=== PATIENT | female | born 1950 | race Caucasian/White ===

== ENCOUNTER → 2020-03-16 11:13 | Outpatient (BNVA) | payer MEDICARE, MEDICAID, SELFPAY | PROVIDERS: PCP Internal Medicine; Referring Provider Internal Medicine; Visit Provider Student in an Organized Health Care Education/Training Program | DX: M35.9 Systemic involvement of connective tissue, unspecified (principal); I27.20 Pulmonary hypertension, unspecified | CPT/HCPCS: 99214 ==

== ENCOUNTER 2020-03-27 09:24 | Outpatient (REF) | payer MEDICARE, MEDICAID, SELFPAY ==
[2020-03-27 10:13] LABS: MANUAL DIFF FLAG NO
[2020-03-27 10:34] LABS: Basophils Percent Auto 0.4 % (0-2); Eosinophils Absolute Auto 0.1 X10*3/uL (0.0-0.4); Hematocrit 42.3 % (37-47); Imm Gran Abs Auto 0.02 X10*3/uL (0.00-0.03); Imm Gran Pct Auto 0.4 % (0.0-0.4); Lymphocytes Absolute Auto 0.9 X10*3/uL (1.2-4.9); Lymphocytes Percent Auto 18.2 % (20-40); Mean Corpuscular HGB Conc 33.1 g/dl (31.0-35.0); Mean Corpuscular Hemoglobin 30.1 pg (27.0-33.0); Mean Platelet Volume 9.8 fL (9.4-12.3); Monocytes Absolute Auto 0.4 X10*3/uL (0.1-1.2); Monocytes Percent Auto 7.6 % (2-11); Neutrophils Absolute Auto 3.7 X10*3/uL (2.0-8.3); Neutrophils Percent Auto 71.4 % (45-73); Platelet Count 201 X10*3/uL (160-400); Red Blood Count 4.65 X10*6/uL (4.20-5.50); Red Cell Distribution Width 12.6 % (11.0-16.0); White Blood Count 5.1 X10*3/uL (4.8-10.8)
[2020-03-27 10:42] LABS: Appearance Urine HAZY; Color Urine YELLOW; Glucose Urine UA NEG (NEG); Leukocyte Esterase Urine 1+ (NEG); Nitrite Urine NEG (NEG); PH 6.5 (5.0-8.0); Specific Gravity - Urine >= 1.030 (1.005-1.025); Urine Blood 2+ (NEG); Urine Ketones 5 MG/DL (NEG); Urine Protein TRACE MG/DL (NEG-TRACE)
[2020-03-27 11:02] LABS: Bacteria Urine 1+ /LPF; Squamous Epithelial Cell Urine 1+ /LPF
[2020-03-27 11:17] LABS: Alanine Aminotransferase 22 U/L (0-31); Albumin Level 4.4 g/dL (3.5-5.0); Alkaline Phosphatase 68 U/L (39-117); Anion Gap 13 (12-20); Aspartate Amino Transferase 33 U/L (5-31); Bilirubin Total 0.9 mg/dL (0.0-1.0); Blood Urea Nitrogen 13 mg/dL (9-16); C Reactive Protein 0.58 mg/dL (< or = 0.50); Carbon Dioxide 29 mmol/L (22-29); Chloride 103 mmol/L (96-108); Estimated Glomerular Filt Rate 45; Glucose Random 105 mg/dL (60-115); Potassium 4.4 mmol/l (3.3-5.1); Sodium 141 mmol/L (135-145); Total Protein 7.4 g/dL (6.5-8.0)
[2020-03-27 11:32] LABS: Erythrocyte Sedimentation Rate 12 MM/HR (0-20)
[2020-03-29 11:41] LABS: Anti DNA DS Antibody <1 IU/mL
[2020-03-29 14:06] LABS: Complement C3 80 mg/dL (83-193)
== END 2020-03-27 09:25 | disposition home or self-care (01) ==
LOC: HO.LAB 09:24
PROVIDERS: Visit Provider Student in an Organized Health Care Education/Training Program
DX: M35.9 Systemic involvement of connective tissue, unspecified (principal)
CPT/HCPCS: 36415; 80053; 81001; 85025; 85652; 86140; 86160; 86225

== ENCOUNTER 2020-05-05 15:47 | Outpatient (REF) | payer MEDICARE, MEDICAID, SELFPAY | END 2020-05-05 15:48 | disposition home or self-care (01) | LOC: HO.LAB 15:47 | PROVIDERS: Visit Provider Internal Medicine | DX: Z20.828 Contact with and (suspected) exposure to other viral communicable diseases (principal) | CPT/HCPCS: C9803; U0003 ==

== ENCOUNTER 2020-08-27 15:17 | Outpatient (REF) | payer MEDICARE, MEDICAID, SELFPAY ==
[2020-08-27 16:20] LABS: Basophils Percent Auto 0.2 % (0-2); Eosinophils Absolute Auto 0.1 X10*3/uL (0.0-0.4); Eosinophils Percent Auto 1.9 % (0-4); Hematocrit 39.8 % (37-47); Imm Gran Abs Auto 0.01 X10*3/uL (0.00-0.03); Imm Gran Pct Auto 0.2 % (0.0-0.4); Lymphocytes Percent Auto 19.5 % (20-40); MANUAL DIFF FLAG NO; Mean Corpuscular HGB Conc 32.7 g/dl (31.0-35.0); Mean Corpuscular Volume 91.7 fL (80-98); Mean Platelet Volume 9.2 fL (9.4-12.3); Monocytes Absolute Auto 0.5 X10*3/uL (0.1-1.2); Monocytes Percent Auto 10.1 % (2-11); Neutrophils Absolute Auto 3.6 X10*3/uL (2.0-8.3); Neutrophils Percent Auto 68.1 % (45-73); Platelet Count 177 X10*3/uL (160-400); Red Blood Count 4.34 X10*6/uL (4.20-5.50); Red Cell Distribution Width 12.9 % (11.0-16.0); White Blood Count 5.2 X10*3/uL (4.8-10.8)
[2020-08-27 16:44] LABS: Glucose Urine UA NEG (NEG); Leukocyte Esterase Urine 2+ (NEG); Nitrite Urine NEG (NEG); Specific Gravity - Urine >= 1.030 (1.005-1.025); Urine Blood 2+ (NEG); Urine Ketones NEG (NEG); Urine Protein NEG (NEG-TRACE)
[2020-08-27 16:47] LABS: Appearance Urine HAZY; Color Urine YELLOW; Creatinine Urine 136.68 mg/dL; Protein/Creatinine Ratio, Ur 0.08 (<0.2); Total Protein Urine Random 11 mg/dL (<12)
[2020-08-27 16:48] LABS: Alanine Aminotransferase 25 U/L (0-31); Albumin Level 4.3 g/dL (3.5-5.0); Alkaline Phosphatase 65 U/L (39-117); Anion Gap 12 (12-20); Aspartate Amino Transferase 30 U/L (5-31); Bilirubin Total 0.7 mg/dL (0.0-1.0); Blood Urea Nitrogen 16 mg/dL (9-16); Carbon Dioxide 29 mmol/L (22-29); Chloride 105 mmol/L (96-108); Estimated Glomerular Filt Rate 46; Glucose Random 99 mg/dL (60-115); Potassium 4.6 mmol/L (3.3-5.1); Sodium 141 mmol/L (135-145); Total Protein 7.3 g/dL (6.5-8.0)
[2020-08-27 17:59] LABS: Erythrocyte Sedimentation Rate 11 MM/HR (0-20)
[2020-08-27 18:03] LABS: Bacteria Urine TRACE /LPF; Squamous Epithelial Cell Urine 1+ /LPF
[2020-08-27 18:04] LABS: Renal Epithelial Cells Urine 3+ /LPF
[2020-08-28 13:06] LABS: Anti DNA DS Antibody <1 IU/mL
[2020-08-30 12:21] LABS: Complement C3 72 mg/dL (83-193)
== END 2020-08-27 15:18 | disposition home or self-care (01) ==
LOC: HO.LAB 15:17
PROVIDERS: PCP Internal Medicine; Referring Provider Internal Medicine; Visit Provider Student in an Organized Health Care Education/Training Program
DX: M35.9 Systemic involvement of connective tissue, unspecified (principal); Z79.899 Other long term (current) drug therapy
CPT/HCPCS: 36415; 80053; 81001; 84156; 85025; 85652; 86140; 86160; 86225; 99212

== ENCOUNTER 2020-10-14 13:31 | Outpatient (REF) | payer MEDICARE, MEDICAID, SELFPAY ==
[2020-10-14 14:16] LABS: Glucose Urine UA NEG (NEG); Leukocyte Esterase Urine 1+ (NEG); Nitrite Urine NEG (NEG); Specific Gravity - Urine >= 1.030 (1.005-1.025); UACC Culture Trigger YES; Urine Blood 2+ (NEG); Urine Ketones 5 MG/DL (NEG); Urine Protein TRACE MG/DL (NEG-TRACE)
[2020-10-14 14:19] LABS: Appearance Urine HAZY; Color Urine YELLOW
[2020-10-14 14:23] LABS: Glucose Urine UA NEG (NEG); Leukocyte Esterase Urine 1+ (NEG); Nitrite Urine NEG (NEG); Specific Gravity - Urine >= 1.030 (1.005-1.025); Urine Blood 2+ (NEG); Urine Ketones 5 MG/DL (NEG); Urine Protein TRACE MG/DL (NEG-TRACE)
[2020-10-14 14:24] LABS: Appearance Urine HAZY; Color Urine YELLOW
[2020-10-14 14:37] LABS: Squamous Epithelial Cell Urine 1+ /LPF
[2020-10-14 14:38] LABS: Renal Epithelial Cells Urine 1+ /LPF
[2020-10-14 14:39] LABS: Renal Epithelial Cells Urine 1+ /LPF; Squamous Epithelial Cell Urine 1+ /LPF
== END 2020-10-14 13:32 | disposition home or self-care (01) ==
LOC: HO.LAB 13:31
PROVIDERS: Student in an Organized Health Care Education/Training Program; PCP Internal Medicine; Visit Provider Internal Medicine
DX: R30.0 Dysuria (principal); M35.9 Systemic involvement of connective tissue, unspecified
CPT/HCPCS: 81001; 81003; 87086

== ENCOUNTER 2020-11-24 09:33 | Outpatient (REF) | payer MEDICARE, MEDICAID, SELFPAY ==
--- NOTE | ~2020-11-24 | MM_ITS ---
EXAMINATION: MM SCREENING DIGITAL BREAST TOMOSYNTHESIS, BILATERAL CLINICAL INFORMATION: Screening. Asymptomatic. The lifetime risk of breast cancer based on the Tyrer-Cuzick Model is 1.6%. COMPARISON: Mammography: March 17, 2019 and studies dating back to April 06, 2012 TECHNIQUE: Digital breast tomosynthesis is performed in both the craniocaudal and mediolateral oblique views along with computer-aided detection (CAD). Synthesized 2D images are generated from the tomosynthesis. FINDINGS: There are scattered areas of fibroglandular density (ACR BI-RADS breast composition Category b). There are no significant masses, abnormal calcifications, or other abnormalities. MM/MM tomosynthesis screening BI IMPRESSION: There are no significant changes from prior study. ASSESSMENT: BI-RADS 1: Negative RECOMMENDATION: Routine annual mammography screening. This patient's information was entered into a reminder system with a target due date for their next mammogram.
== END 2020-11-24 09:34 | disposition home or self-care (01) ==
LOC: HO.MAMMO 09:33
PROVIDERS: Visit Provider Internal Medicine
DX: Z12.31 Encounter for screening mammogram for malignant neoplasm of breast (principal)
CPT/HCPCS: 77063; 77067

== ENCOUNTER 2021-10-07 08:36 | Outpatient (REF) | payer MEDICARE, SELFPAY ==
[2021-10-07 09:00] LABS: MANUAL DIFF FLAG NO
[2021-10-07 09:08] LABS: Basophils Percent Auto 0.6 % (0-2); Eosinophils Absolute Auto 0.2 X10*3/uL (0.0-0.4); Eosinophils Percent Auto 3.5 % (0-4); Hematocrit 39.5 % (37.0-47.0); Imm Gran Abs Auto 0.01 X10*3/uL (0.00-0.03); Imm Gran Pct Auto 0.2 % (0.0-0.4); Lymphocytes Absolute Auto 0.9 X10*3/uL (1.2-4.9); Lymphocytes Percent Auto 18.7 % (20-40); Mean Corpuscular HGB Conc 32.9 g/dl (31.0-35.0); Mean Platelet Volume 9.1 fL (9.4-12.3); Monocytes Absolute Auto 0.5 X10*3/uL (0.1-1.2); Monocytes Percent Auto 10.6 % (2-11); Neutrophils Absolute Auto 3.3 x10*3/uL (2.0-8.3); Neutrophils Percent Auto 66.4 % (45-73); Platelet Count 182 X10*3/uL (160-400); Red Blood Count 4.49 X10*6/uL (4.20-5.50); Red Cell Distribution Width 13.1 % (11.0-16.0); White Blood Count 4.9 X10*3/uL (4.8-10.8)
[2021-10-07 09:40] LABS: Alanine Aminotransferase 20 U/L (0-31); Alkaline Phosphatase 58 U/L (39-117); Anion Gap 12 (12-20); Aspartate Amino Transferase 28 U/L (5-31); Bilirubin Total 0.8 mg/dL (0.0-1.0); Blood Urea Nitrogen 15 mg/dL (9-16); Calcium 9.5 mg/dL (8.4-10.2); Carbon Dioxide 27 mmol/L (22-29); Chloride 107 mmol/L (96-108); Cholesterol 127 mg/dL; Estimated Glomerular Filt Rate 50; Glucose Fasting 96 mg/dL (60-99); HDL Cholesterol 63 mg/dL; LDL Cholesterol Calculated 54 mg/dl; Potassium 4.5 mmol/L (3.3-5.1); Sodium 141 mmol/L (135-145); Total Protein 6.9 g/dL (6.5-8.0); Triglycerides 50 mg/dL
[2021-10-07 10:02] LABS: TSH reflex Free T4 (Prenatal) 2.31 uIU/mL (0.32-4.0); Thyroid Stimulating Hormone 2.31 uIU/mL (0.32-4.0)
[2021-10-10 19:27] LABS: Thyroglobulin Antibodies <1 IU/mL (< or = 1); Thyroid Peroxidase Antibodies <1 IU/mL (<9)
== END 2021-10-07 08:37 | disposition home or self-care (01) ==
LOC: HO.LAB 08:36
PROVIDERS: PCP Internal Medicine; Visit Provider Internal Medicine
DX: D64.9 Anemia, unspecified (principal); K21.9 Gastro-esophageal reflux disease without esophagitis; E78.5 Hyperlipidemia, unspecified; E03.9 Hypothyroidism, unspecified
CPT/HCPCS: 36415; 80053; 80061; 84443; 85025; 86376; 86800

== ENCOUNTER 2021-12-13 09:57 | Outpatient (REF) | payer MEDICARE, SELFPAY ==
--- NOTE | ~2021-12-13 | MM_ITS ---
EXAMINATION: MM SCREENING DIGITAL BREAST TOMOSYNTHESIS, BILATERAL CLINICAL INFORMATION: Screening. Asymptomatic. The lifetime risk of breast cancer based on the Tyrer-Cuzick Model is 3.1%. COMPARISON: Mammography: November 24, 2020 and studies dating back to July 01, 2013 TECHNIQUE: Digital breast tomosynthesis is performed in both the craniocaudal and mediolateral oblique views along with computer-aided detection (CAD). Synthesized 2D images are generated from the tomosynthesis. FINDINGS: There are scattered areas of fibroglandular density (ACR BI-RADS breast composition Category b). There are no significant masses, abnormal calcifications, or other abnormalities. MM/MM tomosynthesis screening BI IMPRESSION: There are no significant changes from prior study. ASSESSMENT: BI-RADS 1: Negative RECOMMENDATION: Routine annual mammography screening. This patient's information was entered into a reminder system with a target due date for their next mammogram.
== END 2021-12-13 09:58 | disposition home or self-care (01) ==
LOC: HO.MAMMO 09:57
PROVIDERS: Visit Provider Internal Medicine
DX: Z12.31 Encounter for screening mammogram for malignant neoplasm of breast (principal)
CPT/HCPCS: 77063; 77067

== ENCOUNTER 2022-03-09 08:28 | Outpatient (REF) | payer OTHER, SELFPAY ==
[2022-03-09 10:00] LABS: Thyroid Stimulating Hormone 4.23 uIU/mL (0.32-4.0); Vitamin D 25-OH Total 35.3 ng/mL (>30)
[2022-03-09 10:01] LABS: Alanine Aminotransferase 20 U/L (0-31); Albumin Level 4.2 g/dL (3.5-5.0); Alkaline Phosphatase 79 U/L (39-117); Anion Gap 16 (12-20); Aspartate Amino Transferase 29 U/L (5-31); Bilirubin Total 0.8 mg/dL (0.0-1.0); Blood Urea Nitrogen 14 mg/dL (9-16); Calcium 9.2 mg/dL (8.4-10.2); Carbon Dioxide 25 mmol/L (22-29); Chloride 106 mmol/L (96-108); Cholesterol 123 mg/dL; Estimated Glomerular Filt Rate 47; Glucose Fasting 88 mg/dL (60-99); HDL Cholesterol 62 mg/dL; LDL Cholesterol Calculated 50 mg/dl; Potassium 4.3 mmol/L (3.3-5.1); Sodium 143 mmol/L (135-145); Total Protein 7.1 g/dL (6.5-8.0); Triglycerides 58 mg/dL
== END 2022-03-09 08:29 | disposition home or self-care (01) ==
LOC: HO.LAB 08:28
PROVIDERS: PCP Internal Medicine; Visit Provider Internal Medicine
DX: E03.9 Hypothyroidism, unspecified (principal); E55.9 Vitamin D deficiency, unspecified; E78.5 Hyperlipidemia, unspecified
CPT/HCPCS: 36415; 80053; 80061; 82306; 84443

== ENCOUNTER 2022-04-17 08:30 | Outpatient (REF) | payer OTHER, SELFPAY ==
[2022-04-17 09:44] LABS: Thyroid Stimulating Hormone 1.85 uIU/mL (0.32-4.0)
== END 2022-04-17 08:31 | disposition home or self-care (01) ==
LOC: HO.LAB 08:30
PROVIDERS: PCP Internal Medicine; Visit Provider Internal Medicine
DX: E03.9 Hypothyroidism, unspecified (principal)
CPT/HCPCS: 36415; 84443

== ENCOUNTER → 2022-07-11 08:06 | Outpatient (REF) | payer OTHER, SELFPAY ==
--- NOTE | 2022-07-11 08:15 | ECG_ITS ---
Test Reason : HYPERLIPIDEMIA Blood Pressure : / mmHG Vent. Rate : 074 BPM Atrial Rate : 074 BPM P-R Int : 222 ms QRS Dur : 096 ms QT Int : 410 ms P-R-T Axes : 040 -25 007 degrees QTc Int : 455 ms Sinus rhythm with 1st degree A-V block Minimal voltage criteria for LVH, may be normal variant ( Jarratt product ) T wave abnormality, consider anterior ischemia Abnormal ECG When compared with ECG of 18-MAY-2014 14:29, KS interval has increased Referred By: Eileen Phillips Electronically Signed By:Butch Roberto
[2022-07-11 10:22] LABS: Alanine Aminotransferase 19 U/L (0-31); Alkaline Phosphatase 63 U/L (39-117); Anion Gap 11 (12-20); Aspartate Amino Transferase 26 U/L (5-31); Bilirubin Total 0.8 mg/dL (0.0-1.0); Blood Urea Nitrogen 20 mg/dL (9-16); Carbon Dioxide 26 mmol/L (22-29); Chloride 108 mmol/L (96-108); Cholesterol 120 mg/dL; Estimated Glomerular Filt Rate 54; Glucose Fasting 83 mg/dL (60-99); HDL Cholesterol 65 mg/dL; LDL Cholesterol Calculated 45 mg/dl; Potassium 4.3 mmol/L (3.3-5.1); Sodium 141 mmol/L (135-145); Total Protein 6.7 g/dL (6.5-8.0); Triglycerides 53 mg/dL
[2022-07-11 10:41] LABS: Thyroid Stimulating Hormone 3.05 uIU/mL (0.32-4.0); Vitamin D 25-OH Total 34.6 ng/mL (>30)
== END ==
LOC: HO.CARD 08:06
PROVIDERS: PCP Internal Medicine; Visit Provider Internal Medicine
DX: E03.9 Hypothyroidism, unspecified (principal); E78.5 Hyperlipidemia, unspecified; E55.9 Vitamin D deficiency, unspecified
CPT/HCPCS: 36415; 80053; 80061; 82306; 84443; 93005

== ENCOUNTER → 2022-09-18 09:45 | Outpatient (BNVA) | payer OTHER, SELFPAY | PROVIDERS: PCP Internal Medicine; Referring Provider Internal Medicine; Visit Provider Internal Medicine Cardiovascular Disease | DX: I44.0 Atrioventricular block, first degree (principal) | CPT/HCPCS: 99202 ==

== ENCOUNTER 2022-10-04 09:16 | Outpatient (REF) | payer OTHER, SELFPAY ==
[2022-10-04 12:15] LABS: Appearance Urine Clear; Color Urine Yellow; Glucose Urine UA Negative (Negative); Leukocyte Esterase Urine Large (3+) (Negative); Nitrite Urine Positive (Negative); UMIC TRIGGER UACC YES; Urine Blood Small (1+) (Negative); Urine Ketones Trace mg/dL (Negative); Urine Protein 30 (1+) mg/dL (Neg-Trace)
[2022-10-04 12:49] LABS: Bacteria Urine 4+ (None Seen); Hyaline Casts Urine 0-2 /LPF (0-2); UACC Culture Trigger YES
== END 2022-10-04 09:17 | disposition home or self-care (01) ==
LOC: HO.LAB 09:16
PROVIDERS: PCP Internal Medicine; Visit Provider Physician Assistant
DX: R30.0 Dysuria (principal)
CPT/HCPCS: 81001; 87086; 87088; 87186

== ENCOUNTER → 2022-10-12 10:44 | Outpatient (REF) | payer OTHER, SELFPAY ==
--- NOTE | 2022-10-12 10:52 | CA_ITS ---
Transthoracic Echocardiogram Patient (Last, First, Middle): Isela Mcclain N Gender: Female Date of : 1950 Age: 72 Procedure Date: 10/12/2022 Procedure Type: Transthoracic Echocardiogram Location: OP Height: 152.4 cm Weight: 81.65 kg BSA: 1.78 m2 Heart Rate: bpm BP: 118 / 62 mmHg Keno Writer: YOVANY Referring MD: Elliot Zhou MD Symptoms: I44.0 - Atrioventricular block, first degree Study Quality: Adequate ECG Rhythm: Sinus Conclusions: - The left ventricular systolic function is normal. The calculated ejection fraction is 66% by biplane method. - The left atrium is severely dilated. - There is moderate aortic valve regurgitation. Findings Left Ventricle Normal left ventricular cavity size. The left ventricular systolic function is normal. The calculated ejection fraction is 66% by biplane method. There is no evidence of regional wall motion abnormalities. E/E prime ratio is <8, consistent with normal filling pressures. Evidence suggests grade I (mild) diastolic dysfunction. There is mild septal asymmetric hypertrophy. LV peak GLS -19%. Right Ventricle Normal right ventricular cavity size and systolic function. Atria The left atrium is severely dilated. The right atrium is normal in size. Aortic Valve There is a normal trileaflet aortic valve. There is mild calcification of the aortic valve. There is no aortic valve stenosis. There is moderate aortic valve regurgitation. Mitral Valve The mitral valve appears normal. There is trace mitral valve regurgitation. There is no mitral valve stenosis. Pulmonic Valve There is trace pulmonic valve regurgitation. Tricuspid Valve There is mild tricuspid valve regurgitation. There is no evidence of pulmonary hypertension. Great Vessels The aortic annulus, sinuses of valsalva, and asc aorta are normal in size. Venous The inferior vena cava is normal in size and collapses less than 50% with inspiration. Pericardium/Pleural There is no evidence of pericardial effusion. Prior Study Comparison Changes noted compared to prior study dated: 09/02/2015. slight progression of aortic regurgitation. Measurements 2D Linear Measurements IVSd: 1.09 0.6-0.9/0.6-1.0 cm LVIDd: 4.77 3.9-5.3/4.2-5.9 cm LVIDd Index: 2.68 2.4-3.2/2.2-3.1 cm/m2 LVIDs: 2.58 2.0-3.6 cm LVPWd: 1.00 0.7-1.1 cm LA Diam: 4.10 2.7-3.8/3.0-4.0 cm LAIDs Index: 2.30 1.5-2.3 cm/m2 LV Mass: 222.28 67-162/88-224 g LV Mass Index: 124.88 43-95/49-115 g/m2 LVOT Diam: 2.10 3.0+(-)1.3 cm 2D Systolic Function EF 4C: 67.40 >55% EF 2C: 63.90 >55% EF BiP: 65.90 >55% Mitral Valve MV Pk E: 0.58 MV PK A: 0.55 MV Decel Time: 210.00 E/A: 1.10 E'Lateral: 6.85 E'Medial: 5.87 E/E' Med: 9.80 E/E' Lat: 8.40 PHT: 61.00 MVA PHT: 3.61 Decel [place]: 2.76 Aortic Valve AoV Pk Rhett: 1.66 AoV Mn Rhett: 1.14 AoV VTI: 0.40 AoV Pk Grad: 11.00 Aov Mn Grad: 6.00 EB Cont.VTI: 2.26 AI Pk Rhett: 4.24 AI VTI: 2.14 AI Glacier: 2.39 AI Alias Rhett: 0.40 AI RV - PISA: 32.00 ERO - PISA: 15.00 LVOT LVOT Pk Rhett: 1.02 LVOT Mn Rhett: 0.72 LVOT VTI: 0.26 LVOT Pk Grad: 4.00 LVOT Mn Grad: 2.00 LVOT Diam: 2.10 LVOT Area: 3.46 Diastolic Function MV Pk E: 0.58 MV Pk A: 0.55 E/A: 1.10 E'Medial: 5.87 E/E' Med: 9.80 E' Laterial: 6.85 E/E' Lat: 8.40 Right Ventricle TAPSE (mm): 22.60 TVS' Rhett: 10.30 Tricuspid Valve TR Pk Rhett: 2.37 TR Pk Grad: 22.00 RA Press: 8.00 RVSP: 30.00 Great Vessels Aorta Sinus of Valsalva: 3.47 2.0-3.[address] [place]: 2.73 1.7-3.4 cm Ao Asc: 3.40 2.1-3.4 cm Updated in Other Vendor System with Status of Final Caleb Dodge MD electronically signed on 10/12/2022 1:46:54 PM with status of Final
== END ==
LOC: HO.CARD 10:44
PROVIDERS: PCP Internal Medicine; Visit Provider Internal Medicine Cardiovascular Disease
DX: I44.0 Atrioventricular block, first degree (principal)
CPT/HCPCS: 93306; 93356

== ENCOUNTER 2022-11-10 09:45 | Emergency (ER) | payer OTHER, SELFPAY ==
[2022-11-10 09:55] VITALS: BP 104/41; PULSE 70; RESP 18; TEMP 36.9; O2SAT 94; BMI 32.9
--- NOTE | 2022-11-10 10:16 | ED_ITS ---
HPI - Female Genitourinary General Chief complaint: Urogenital-Female Stated complaint: bladder pain Time Seen by Provider: 11/10/22 10:15 Source: patient Mode of arrival: ambulatory Limitations: no limitations History of Present Illness HPI Narrative: Patient is a 72 year old assigned female at with a history of frequent UTIs presenting to the emergency department today with persistent lower abdominal pain. Patient states that she has been having frequent UTIs and is now having lower abdominal pain again like she has before with her UTIs. Patient denies any dizziness, lightheadedness, nausea, vomiting, fever, chills, blurry vision, double vision, loss of vision, chest pain, difficulty breathing, shortn ess of breath, back pain, night sweats, pain with urination, increased urinary frequency, increased urinary urgency, blood in her urine or stool, syncope or a near syncopal episode, recent trauma or falls, bowel incontinence, bladder incontinence, bowel retention, bladder retention, or any other complaints at this time. MD elicited complaint: UTI Severity: mild Severity scale (1-10): 2 Vaginal discharge: none Vaginal bleeding: none Exacerbating factors: none Relieving factors: none Associated symptoms: abdominal pain Treatment prior to arrival: none Related Data Home Medications Medication Instructions Recorded Confirmed acetaminophen 650 mg 650 mg PO Q8H 03/16/20 09/18/22 tablet,extended release (Tylenol Arthritis Pain) sildenafil (pulm.hypertension) 20 20 mg PO TID 03/16/20 09/18/22 mg tablet sucralfate 1 gram tablet (Carafate) 1 g PO BID 03/16/20 09/18/22 meclizine 12.5 mg tablet 12.5 mg PO TID PRN 09/18/22 09/18/22 sertraline 50 mg tablet 50 mg PO DAILY 09/18/22 09/18/22 Previous Rx's Medication Instructions Recorded hydroxychloroquine 200 mg tablet 400 mg PO DAILY #180 caps 06/29/20 albuterol sulfate 2.5 mg/3 mL 2.5 mg (3 mL) inhalation TID PRN 02/03/21 (0.083 %) solution for nebulization shortness of breath or wheezing #270 caps atorvastatin 10 mg tablet 10 mg PO DAILY #90 caps 03/22/22 calcium carbonate 600 mg-vitamin 1 tab PO DAILY #90 caps 03/22/22 D3 10 mcg (400 unit) tablet clopidogrel 75 mg tablet 75 mg PO DAILY #90 caps 03/22/22 fluticasone 500 mcg-salmeterol 50 1 ea PO BID #180 caps 03/22/22 mcg/dose blistr powdr for inhalation (Wixela Inhub) folic acid 1 mg tablet 1 mg PO DAILY #90 caps 06/12/22 pantoprazole 40 mg tablet,delayed 40 mg PO DAILY #90 caps 06/12/22 release levothyroxine 112 mcg tablet 112 mcg PO DAILY 90 days #90 tabs 09/10/22 food supplemt, lactose-reduced 1 ea PO BID 24 days #5,688 mL 10/25/22 0.04 gram-1 kcal/mL oral liquid (Boost) nitrofurantoin 100 mg PO Q12H 5 days #10 caps 10/30/22 monohydrate/macrocrystals 100 mg capsule (Macrobid) cefdinir 300 mg capsule 300 mg PO BID 7 days #14 caps 11/10/22 Allergies Allergy/AdvReac Type Severity Reaction Status Date / Time potassium chloride Allergy Severe SWELLING Verified 07/10/22 11:15 [Potassium Chloride] aspirin Allergy Intermediate bleeding Verified 07/10/22 11:15 morphine [MORPHINE] Allergy Intermediate HALLUCINATI Verified 07/10/22 11:15 ONS levofloxacin [From Levaquin] AdvReac Mild SEVERE Verified 07/10/22 11:15 DIARRHEA ranitidine [From Zantac] AdvReac Mild CONFUSION Verified 07/10/22 11:15 Review of Systems Constitutional: Constitutional: Reports no additional constitutional complaints, Denies chills, Denies fever(s) and Denies night sweats Eyes: Eyes: Reports no additional eye complaints, Denies blurry vision, Denies change in vision, Denies diplopia, Denies eye discharge, Denies loss of vision and Denies eye pain ENT: Denies dizziness Cardiovascular: Cardiovascular: Reports no additional cardiovascular complaints, Denies chest pain, Denies lightheadedness, Denies Loss of Consciousness and Denies dyspnea Respiratory: Respiratory: Reports no additional respiratory complaints and Denies dyspnea Gastrointestinal: Gastrointestinal: Reports no additional gastrointestinal complaints, Reports abdominal pain, Denies melena, Denies hematochezia, Denies change in bowel habits and Denies change in stool character Genitourinary: Genitourinary: Denies hematuria, Denies urinary frequency, Denies dysuria, Denies urinary incontinence, Denies urinary hesitancy and Denies urinary urgency Musculoskeletal: Musculoskeletal: Reports no additional musculoskeletal com plaints, Denies numbness and Denies tingling Neurologic: Denies dizziness, Denies loss of vision, Denies numbness and Denies tingling Psychiatric: Psychiatric: Reports no additional psychiatric complaints Endocrine: Endocrine: Reports no additional endocrine complaints Hematologic/Lymphatic: Hematologic/Lymphatic: Reports no additional hematologic/lymphatic complaints Allergic/Immunologic: Allergic/Immunologic: Reports no additional allergic/immunologic complaints PMFSH Past Medical History Attestation statement: The following information was validated with the patient. (all information validated with the patient's daughter) Source: old records reviewed, obtained from family (patient's daughter provided additional history) and nursing notes reviewed Medical History Dyslipidemia GERD (gastroesophageal reflux disease) Hypothyroidism Memory loss Mild recurrent major depression Moderate asthma Physical exam Pulmonary hypertension Undifferentiated connective tissue disease Surgical History History of History of hernia surgery History of hysterectomy Family History Family History Father No problems noted. Mother No problems noted. Social History Social History Housing: Apartment Alcohol intake: never Patient Tobacco Use Status: Never used Tobacco e-Cigarette/Vaping Use: Never Used Second Hand Smoke Exposure: Yes service: No Current occupational status: disabled Cognitive needs: No Hearing needs: No Vision needs: Yes Physical Exam Vital Signs: Vital Signs: Last Vital Signs Temp 98.4 F 11/10/22 09:55 Pulse 70 11/10/22 09:55 Resp 18 11/10/22 09:55 BP 104/41 L 11/10/22 09:55 Pulse Ox 94 11/10/22 09:55 O2 Del Method Room Air 11/10/22 09:55 BMI result Body Mass Index 32.9 Const: General: cooperative, no acute distress, alert and awake Nutritional Appearance: well nourished Orientation/consciousness: patient oriented x3 Limitations: no limitations HEENT: Head: Yes normal to inspection and Yes atraumatic Ears: hearing grossly normal bilaterally and external ears normal General nose exam: Normal external nose present, no nasal discharge noted and no epistaxis Face and sinus: Yes normal facial exam, No abrasion and No laceration Mouth: Normal oral and palatal mucosa present, no drooling and no muffled voice Eyes: General: appearance normal, both eyes and all related structures Periorbital: periorbital findings normal Eyelids: Yes eyelids normal Co njunctivae: conjunctivae normal Pupils: Equal, round and reactive pupils present EOM: EOMs intact bilaterally Neck: Neck: Yes normal visual inspection, Yes full ROM and Yes no lymp hadenopathy Chest: Chest palpation & inspection: normal inspection of the chest Resp: Effort & Inspection: normal respiratory effort and able to speak in complete sentences GI: Inspection: Yes normal to inspection Palpation (GI): Soft to palpation, not firm, nontender, no guarding and not rigid Neuro: General: patient oriented x3 and moves all extremities Cranial nerves: Yes Equal, round and reactive pupils present Cognition (Neuro): normal cognition Motor exam (neuro): 5/5 motor strength present throughout Sensory Exam: Normal double simultaneous stimulation for sensation Coordination: [id number] test normal Extrem: General: Yes normal to inspection, Yes full ROM and Yes capillary refill normal Psych: Appearance: grossly normal Mental Status: mental status grossly normal Affect: normal affect Attitude: cooperative Thought process: Normal thought process present Thought content: Normal thought content present Insight: Good insight present (Psych) Medical Decision Making Medical Decision Making MDM Narrative: Patient is a 72 year old assigned female at with a history of recurrent UTIs presenting to the emergency department today with lower abdominal pain. Patient's physical exam was unremarkable. Patient's blood work was unremarkable. Patient's urine showed an acute infection. I explained my physical exam findings as well as all test results to the patient and the patient's daughter. I answered all questions asked by the patient and the patient's daughter. I stressed the importance of the patient taking her medication as prescribed. I stressed the importance of the patient following up with her primary care provider and a urologist. I stressed the importance of the patient returning to the emergency department immediately if her symptoms were to worsen or if she were to develop any dizziness, shortness of breath, difficulty breathing, chest pain, blurry vision, loss of vision, nausea, vomiting, abdominal pain, fever, chills, back pain, or any other complaints. Patient verbalized agreement and understanding with this treatment plan and discharge. Differential Diagnosis Differential Diagnoses: The differential diagnosis associated with the presentation includes UTI Admission/Observation Consideration of admission/observation: Escalation of care including admission/observation considered Patient would have been admitted to the hospital had her work up had any findings where hospital admission was appropriate. Lab Data MDM Lab Attestation statement: I reviewed the patient's lab results. My interpretation of these studies and their corresponding values is that they are grossly normal with the exception of the urinary tract infection present in the urine sample. 11/10/22 10:44 11/10/22 10:44 Labs: Lab Results 11/10/22 11/10/22 11/10/22 Range/Units 10:44 10:44 11:01 WBC 4.7 L (4.8-10.8) X10*3/uL RBC 4.57 (4.20-5.50) X10*6/uL Hgb 11.6 L (12.0-16.0) g/dl Hct 36.9 L (37.0-47.0) % MCV 80.7 (80.0-98.0) fL MCH 25.4 L (27.0-33.0) pg MCHC 31.4 (31.0-35.0) g/dl RDW 15.8 (11.0-16.0) % Plt Count 191 (160-400) X10*3/uL MPV 9.1 L (9.4-12.3) fL Immature Gran % (Auto) 0.2 (0.0-0.4) % Neut % (Auto) 68.3 (45-73) % Lymph % (Auto) 17.8 L (20-40) % [place] % (Auto) 9.2 (2-11) % Eos % (Auto) 3.9 (0-4) % Baso % (Auto) 0.6 (0-2) % Lymph # (Auto) 0.8 L (1.2-4.9) X10*3/uL [place] # (Auto) 0.4 (0.1-1.2) X10*3/uL Eos # (Auto) 0.2 (0.0-0.4) X10*3/uL Baso # (Auto) 0.0 (0.0-0.2) X10*3/uL Abs Immat Gran (auto) 0.01 (0.00-0.03) X10*3/uL Absolute Neuts (auto) 3.2 (2.0-8.3) x10*3/uL Absolute Nucleated RBC 0.000 (0.0-0.012) X10*3/uL Nucleated RBC % (auto) 0.0 (0.0-0.2) /100WBC Sodium 141 (135-145) mmol/L Potassium 3.7 (3.3-5.1) mmol/L Chloride 109 H (96-108) mmol/L Carbon Dioxide 24 (22-29) mmol/L Anion Gap 12 (12-20) BUN 17 H (9-16) mg/dL Creatinine 1.14 (0.5-1.4) mg/dL Estim Creat Clear Calc 44.8 Estimated GFR 47 Random Glucose 125 H (60-115) mg/dL Calcium 9.4 (8.4-10.2) mg/dL Magnesium 2.1 (1.6-2.6) mg/dL Total Bilirubin 0.8 (0.0-1.0) mg/dL AST 29 (5-31) U/L ALT 18 (0-31) U/L Alkaline Phosphatase 58 (39-117) U/L Total Protein 6.8 (6.5-8.0) g/dL Albumin 3.8 (3.5-5.0) g/dL Urine Color Dark Yellow Urine Appearance Clear Urine pH 6.0 (5.0-9.0) Ur Specific [place] 1.020 (1.005-1.025) Urine Protein 30 (1+) H (Neg-Trace) mg/dL Urine Glucose (UA) Negative (Negative) mg/dL Urine Ketones Negative (Negative) mg/dL Urine Blood Small (1+) H (Negative) Urine Nitrite Negative (Negative) Ur Leukocyte Esterase Moderate (2+) H (Negative) Urine RBC >20 H (0-2) /HPF Urine WBC 21-50 H (0-5) /HPF Ur Squamous Epith Cells 6-10 (0-2) /HPF Urine Bacteria Trace (None Seen) Hyaline Casts 11-20 (0-2) /LPF Independent Historian Clinical information obtained from an independent historian. History obtained from or confirmed by: Other (patient's daughter provided additional history and confirmed the history provided by the patient) Discharge Plan Discharge Clinical Impression: Urinary tract infection Patient Disposition: Home, Self-Care Instructions: Urinary Tract Infection in Older Adults (ED) Additional Instructions: Follow up with your primary care provider and a urologist. Return to the emergency department immediately if your symptoms worsen or if you develop any dizziness, shortness of breath, difficulty breathing, chest pain, blurry vision, loss of vision, nausea, vomiting, abdominal pain, fever, chills, back pain, or any other complaints. Prescriptions: New cefdinir 300 mg capsule 300 mg PO BID 7 Days Qty: 14 0RF No Action hydroxychloroquine 200 mg tablet 400 mg PO DAILY Qty: 180 2RF albuterol sulfate 2.5 mg /3 mL (0.083 %) solution for nebulization 2.5 mg inhalation TID PRN (Reason: shortness of breath or wheezing) Qty: 270 2RF fluticasone propion-salmeterol [Wixela Inhub] 500-50 mcg/dose blister with device 1 ea PO BID Qty: 180 3RF atorvastatin 10 mg tablet 10 mg PO DAILY Qty: 90 3RF clopidogrel 75 mg tablet 75 mg PO DAILY Qty: 90 3RF calcium carbonate-vitamin D3 600 mg-10 mcg (400 unit) tablet 1 tab PO DAILY Qty: 90 3RF folic acid 1 mg tablet 1 mg PO DAILY Qty: 90 3RF pantoprazole 40 mg tablet,delayed release (DR/EC) 40 mg PO DAILY Qty: 90 3RF levothyroxine 112 mcg tablet 112 mcg PO DAILY 90 Days Qty: 90 1RF Boost 0.04 gram- 1 kcal/mL liquid 1 ea PO BID 24 Days Qty: 5688 0RF nitrofurantoin monohyd/m-cryst [Macrobid] 100 mg capsule 100 mg PO Q12H 5 Days Qty: 10 0RF Rx Instructions: must administer with a meal/food sertraline 50 mg tablet 50 mg PO DAILY sucralfate [Carafate] 1 gram tablet 1 g PO BID sildenafil (pulm.hypertension) 20 mg tablet 20 mg PO TID Rx Instructions: administer doses at least 4-6 hours apart acetaminophen [Tylenol Arthritis Pain] 650 mg tablet extended release 650 mg PO Q8H meclizine 12.5 mg tablet 12.5 mg PO TID PRN Referrals: [facility] [Provider Group] (Call to establish and follow up with a urologist to discuss your frequent UTIs) Eileen Mcmahan MD [Primary Care Provider] - Interventions: ED Discharge Assessment Last Done: 11/10/22 11:42 Discharge Date/Time: 11/10/22 11:45 Print Language: Citizen [place]
[2022-11-10 10:48] LABS: MANUAL DIFF FLAG NO
[2022-11-10 10:50] LABS: Basophils Percent Auto 0.6 % (0-2); Eosinophils Absolute Auto 0.2 X10*3/uL (0.0-0.4); Eosinophils Percent Auto 3.9 % (0-4); Hematocrit 36.9 % (37.0-47.0); Hemoglobin 11.6 g/dl (12.0-16.0); Imm Gran Abs Auto 0.01 X10*3/uL (0.00-0.03); Imm Gran Pct Auto 0.2 % (0.0-0.4); Lymphocytes Absolute Auto 0.8 X10*3/uL (1.2-4.9); Lymphocytes Percent Auto 17.8 % (20-40); Mean Corpuscular HGB Conc 31.4 g/dl (31.0-35.0); Mean Corpuscular Hemoglobin 25.4 pg (27.0-33.0); Mean Corpuscular Volume 80.7 fL (80.0-98.0); Mean Platelet Volume 9.1 fL (9.4-12.3); Monocytes Absolute Auto 0.4 X10*3/uL (0.1-1.2); Monocytes Percent Auto 9.2 % (2-11); Neutrophils Absolute Auto 3.2 x10*3/uL (2.0-8.3); Neutrophils Percent Auto 68.3 % (45-73); Platelet Count 191 X10*3/uL (160-400); Red Blood Count 4.57 X10*6/uL (4.20-5.50); Red Cell Distribution Width 15.8 % (11.0-16.0); White Blood Count 4.7 X10*3/uL (4.8-10.8)
[2022-11-10 11:09] LABS: Alanine Aminotransferase 18 U/L (0-31); Albumin Level 3.8 g/dL (3.5-5.0); Alkaline Phosphatase 58 U/L (39-117); Anion Gap 12 (12-20); Aspartate Amino Transferase 29 U/L (5-31); Bilirubin Total 0.8 mg/dL (0.0-1.0); Blood Urea Nitrogen 17 mg/dL (9-16); Calcium 9.4 mg/dL (8.4-10.2); Carbon Dioxide 24 mmol/L (22-29); Chloride 109 mmol/L (96-108); Creatinine Clr Calc Pharmacy 44.8; Estimated Glomerular Filt Rate 47; Glucose Random 125 mg/dL (60-115); Magnesium 2.1 mg/dL (1.6-2.6); Potassium 3.7 mmol/L (3.3-5.1); Sodium 141 mmol/L (135-145); Total Protein 6.8 g/dL (6.5-8.0)
[2022-11-10 11:16] LABS: Appearance Urine Clear; Color Urine Dark Yellow; Glucose Urine UA Negative (Negative); Leukocyte Esterase Urine Moderate (2+) (Negative); Nitrite Urine Negative (Negative); UMIC TRIGGER UACC YES; Urine Blood Small (1+) (Negative); Urine Ketones Negative (Negative); Urine Protein 30 (1+) mg/dL (Neg-Trace)
[2022-11-10 11:31] LABS: Bacteria Urine Trace (None Seen); RBC Urine >20 /HPF (0-2); UACC Culture Trigger YES; WBC Urine 21-50 /HPF (0-5)
== END 2022-11-10 11:45 | disposition home or self-care (01) ==
PROVIDERS: Physician Assistant Medical; Emergency Provider Emergency Medicine; PCP Internal Medicine
DX: N39.0 Urinary tract infection, site not specified (principal); Z79.899 Other long term (current) drug therapy
CPT/HCPCS: 36415; 80053; 81001; 83735; 85025; 87086; 99282; 99283

== ENCOUNTER 2022-11-22 10:55 | Outpatient (REF) | payer OTHER, SELFPAY | END 2022-11-22 10:56 | disposition home or self-care (01) | LOC: HO.LAB 10:55 | PROVIDERS: Visit Provider Internal Medicine | DX: R30.0 Dysuria (principal) | CPT/HCPCS: 87086 ==

== ENCOUNTER 2022-12-06 14:15 | Outpatient (AMB) | payer OTHER, SELFPAY ==
--- NOTE | 2022-12-06 12:59 | A.OFFVIS_ITS ---
Intake Intake Visit Reasons: ER follow up- Recurrent UTI Intake Note: * [facility] * Meds- Bactrim & Cefdinir * Allergies to Antibiotic- Levofloxacin * Blood Thinner- None * PVR-46 Special Services Coordinator Required: No Accompanied by: Grand Child Allergies potassium chloride [Potassium Chloride] Allergy (Severe, Verified 12/06/22 14:24) SWELLING aspirin Allergy (Intermediate, Verified 12/06/22 14:24) bleeding morphine [MORPHINE] Allergy (Intermediate, Verified 12/06/22 14:24) HALLUCINATIONS levofloxacin [From Levaquin] Adverse Reaction (Mild, Verified 12/06/22 14:24) SEVERE DIARRHEA ranitidine [From Zantac] Adverse Reaction (Mild, Verified 12/06/22 14:24) CONFUSION Medication List - Last Reconciled 12/06/22 by Brian Shankar MD acetaminophen ER (Tylenol Arthritis Pain) 650 mg PO Q8H albuterol sulfate 2.5 mg (3 mL) inhalation TID PRN atorvastatin 10 mg PO DAILY calcium carbonate-vitamin D3 600 mg-10 mcg (400 unit) 1 tab PO DAILY cefdinir 300 mg PO BID 7 days clopidogrel 75 mg PO DAILY donepezil 0 mg PO fluticasone propion-salmeterol 500-50 mcg/dose (Wixela Inhub) 1 ea PO BID folic acid 1 mg PO DAILY food supplemt, lactose-reduced (Boost) 1 ea PO BID 24 days hydroxychloroquine 400 mg (2 x 200 mg) PO DAILY levothyroxine 112 mcg PO DAILY 90 days meclizine 12.5 mg PO TID PRN pantoprazole 40 mg PO DAILY sertraline 100 mg PO DAILY sildenafil (pulm.hypertension) 20 mg PO TID sucralfate (Carafate) 1 g PO BID sulfamethoxazole-trimethoprim 800-160 mg (Bactrim DS) 1 tab PO BID 7 days HPI HPI Comments History of Present Illness Details Isela is a 72-year-old female who presents to the office for ER follow-up of recurrent UTIs. 12/06/22-- The patient presents with her granddaughter who interprets for her. She was seen in the emergency on 11/10/22. At that time urine culture was done. The patient had her first UTI episode in the month of September 2022 and since then she had four rounds of antibiotic therapy. The patient denies dysuria and urinary symptoms, urgency or urinary incontinence currently. Urine culture results reviewed--11/22/22-- > 100,000 cfu/ml Mixed bacterial tisha. Evaluation today UA: leukocytes-- 3+, blood-- 2+, nitrite-- negative. PVR: 46 mL. Plan: Cystoscopy discussed to be scheduled. Urine sent for MicroGen testing. Renal US was ordered. [facility] Medical History Dyslipidemia GERD (gastroesophageal reflux disease) Hypothyroidism Memory loss Mild recurrent major depression Moderate asthma Physical exam Pulmonary hypertension Undifferentiated connective tissue disease Surgical History History of History of hernia surgery History of hysterectomy Family History Father No problems noted. Mother No problems noted. Social History Housing: Apartment Alcohol intake: never Patient Tobacco Use Status: Never used Tobacco e-Cigarette/Vaping Use: Never Used Second Hand Smoke Exposure: Yes service: No Current occupational status: disabled Cognitive needs: No Hearing needs: No Vision needs: Yes Review of Systems Const All systems reviewed & are unremarkable except as noted in HPI and below Reports no additional complaints Eyes Reports no additional complaints ENT Reports no additional complaints Card Denies dyspnea Resp Denies cough and Denies dyspnea GI Reports no additional complaints Reports no additional complaints Musc Reports no additional complaints Skin/Breast Denies rash and Denies unusual bruising Neuro Reports no additional complaints Psych Reports no additional complaints Endo Reports no additional complaints Jayme/Lymph Reports no additional complaints Aller/Immun Reports no additional complaints Physical Exam Const General: cooperative, healthy appearing and no acute distress Orientation/consciousness: patient oriented x3 HEENT Head: Yes normal to inspection, Yes normocephalic and Yes atraumatic Eyes Conjunctivae: conjunctivae normal Neck Neck: Yes normal visual inspection and Yes trachea midline Chest Chest palpation & inspection: normal inspection of the chest Resp Effort & Inspection: normal respiratory effort Cardio Rate: regular rate GI Inspection: Yes normal to inspection Palpation (GI): Soft to palpation General: No no CVA tenderness Back/Spine/Pelvis Back: No no CVA tenderness Skin General skin exam: no rashes or lesions noted Neuro General: patient oriented x3 Extrem General: No edema Psych Appearance: grossly normal Office Procedures Post Void Residual Post Residual Void Post Void Residual (PVR): 46 [id number] Void Residual by ultrasound Results AMB Urinalysis, Automated UA Leukoctes 500 Mar/uL Last Edit by LIN Vidal on 12/06/22 14:35 3+ Flores Huff 12/06/22 14:35 UA Nitrite Negative Last Edit by LIN Vidal on 12/06/22 14:35 UA Urobilinogen 0.2 mg/dL Last Edit by LIN Vidal on 12/06/22 14:3 5 UA Protein 30 mg/dL Last Edit by LIN Vidal on 12/06/22 14:35 1+ Flores Huff 12/06/22 14:35 UA pH 6.0 Last Edit by LIN Vidal on 12/06/22 14:35 UA Blood 80 Kody/uL Last Edit by LIN Vidal on 12/06/22 14:35 2+ Flores Huff 12/06/22 14:35 UA Specific [place] 1.030 Last Edit by LIN Vidal on 12/06/22 14: 35 UA Ketone Negative Last Edit by ILN Vidal on 12/06/22 14:35 UA Bilirubin 1 mg/dL Last Edit by LIN Vidal on 12/06/22 14:35 1+ Flores Huff 12/06/22 14:35 UA Glucose 0 mg/dL Last Edit by LIN Vidal on 12/06/22 14:35 Results Reviewed Results Reviewed: Laboratory Last Values Urine pH (Auto) 6.0 12/06/22 14:26 Specific [place] (Auto) 1.030 12/06/22 14:26 Urine Protein (Auto) 30 mg/dL 12/06/22 14:26 Glucose (UA)(Auto) 0 mg/dL 12/06/22 14:26 Urine Ketones (Auto) Negative 12/06/22 14:26 Urine Blood (Auto) 80 Kody/uL 12/06/22 14:26 Urine Nitrite (Auto) Negative 12/06/22 14:26 Urine Bilirubin (Auto) 1 mg/dL 12/06/22 14:26 Urine Urobilinogen (Auto) 0.2 mg/dL 12/06/22 14:26 Leukocyte Esterase (Auto) 500 Mar/uL 12/06/22 14:26 Collected: 11/22/22 Received: 11/22/22 Ordered: Urine Culture Procedure Result Verified Site Urine Culture Final 11/24/22-1039 Report Result > 100,000 cfu/ml Mixed bacterial tisha characteristic of urogenital contamination. Assessment & Plan Assessment & Plan (1) Recurrent UTI: Code(s): N39.0 - Urinary tract infection, site not specified Plan Cystoscopy discussed to be scheduled. Urine sent for MicroGen testing. Renal US was ordered. Orders: Orders US renal BI 12/06/22 N39.0 - Urinary tract infection, site not specified AMB Urinalysis Automated 12/06/22 Z13.9 - Encounter for screening, unspecified AMB Post Void Residual by ultrasound 12/06/22 N39.8 - Other specified disorders of urinary system Patient Instructions: The patient had an opportunity to ask questions regarding treatment plan. All questions were answered. Imaging, Laboratory studies and physical exam results were discussed and reviewed in detail. No major barriers to understanding were identified. The patient expressed understanding and agreement with the above treatment plan. The patient is aware they should contact our office by phone for worsening of their current condition or the appearance of new symptoms. Compliance is encouraged with any medications and followup testing that is ordered. It is a privilege to be allowed the opportunity to participate in the urologic care of your patient. If you have any questions or concerns regarding treatment for the above conditions please do not hesitate to contact me. The office telephone contact is [phone]. This note is constructed in part using voice recognition software. While every effort has been made to ensure accuracy sales hunter errors may have been included. Yours sincerely, Brian Shankar MD Coding Level of Care Code New Pt Level 4 (46809) Diagnoses Recurrent UTI N39.0 CPT Codes Post Residual Void - PVR CPT Code: 76064-Meuj Void Residual by ultrasound ([id number])
== END 2022-12-06 14:49 | disposition home or self-care (01) ==
PROVIDERS: PCP Internal Medicine; Visit Provider Urology
DX: N39.0 Urinary tract infection, site not specified (principal)
CPT/HCPCS: 99204

== ENCOUNTER → 2022-12-06 14:15 | Outpatient (BNVA) | payer OTHER, SELFPAY | PROVIDERS: PCP Internal Medicine; Visit Provider Urology | DX: N39.0 Urinary tract infection, site not specified (principal) | CPT/HCPCS: 51798; 99202 ==

== ENCOUNTER 2022-12-11 08:11 | Outpatient (REF) | payer OTHER, SELFPAY ==
[2022-12-11 09:50] LABS: Alanine Aminotransferase 20 U/L (0-31); Albumin Level 3.9 g/dL (3.5-5.0); Alkaline Phosphatase 60 U/L (39-117); Anion Gap 12 (12-20); Aspartate Amino Transferase 30 U/L (5-31); Bilirubin Total 0.7 mg/dL (0.0-1.0); Blood Urea Nitrogen 13 mg/dL (9-16); Calcium 9.1 mg/dL (8.4-10.2); Carbon Dioxide 27 mmol/L (22-29); Chloride 105 mmol/L (96-108); Cholesterol 117 mg/dL; Estimated Glomerular Filt Rate 52; Glucose Fasting 100 mg/dL (60-99); HDL Cholesterol 63 mg/dL; LDL Cholesterol Calculated 43 mg/dl; Potassium 4.2 mmol/L (3.3-5.1); Sodium 140 mmol/L (135-145); Total Protein 6.9 g/dL (6.5-8.0); Triglycerides 57 mg/dL
== END 2022-12-11 08:12 | disposition home or self-care (01) ==
LOC: HO.LAB 08:11
PROVIDERS: PCP Internal Medicine; Visit Provider Internal Medicine
DX: E03.9 Hypothyroidism, unspecified (principal); I27.20 Pulmonary hypertension, unspecified; E78.5 Hyperlipidemia, unspecified
CPT/HCPCS: 36415; 80053; 80061; 84443

== ENCOUNTER 2022-12-13 09:59 | Outpatient (AMB) | payer MEDICARE, SELFPAY ==
[2022-12-13 10:11] VITALS: BP 100/70; PULSE 68; O2SAT 97; BMI 28.5
--- NOTE | 2022-12-13 10:11 | MHC.PC.OV ---
Vital Signs 12/13/22 10:11 Height 5 ft 2 in Weight 155 lb 10.342 oz BMI 28.5 BP 100/70 Blood Pressure Location Lt brachial Position Sitting Pulse 68 Pulse Source Pulse Oximeter Pulse Oximetry (%) 97 Oxygen Delivery Method Room Air Intake Visit Reasons: Annual Exam Intake Note: Patient here for a physical exam Gymnastic Teacher Required: No Accompanied by: Daughter Allergies potassium chloride [Potassium Chloride] Allergy (Severe, Verified 12/13/22 10:23) SWELLING aspirin Allergy (Intermediate, Verified 12/13/22 10:23) bleeding morphine [MORPHINE] Allergy (Intermediate, Verified 12/13/22 10:23) HALLUCINATIONS levofloxacin [From Levaquin] Adverse Reaction (Mild, Verified 12/13/22 10:23) SEVERE DIARRHEA ranitidine [From Zantac] Adverse Reaction (Mild, Verified 12/13/22 10:23) CONFUSION Medication List - Last Reconciled 12/13/22 by Eileen Phillips MD acetaminophen ER (Tylenol Arthritis Pain) 650 mg PO Q8H albuterol sulfate 2.5 mg (3 mL) inhalation TID PRN atorvastatin 10 mg PO DAILY calcium carbonate-vitamin D3 600 mg-10 mcg (400 unit) 1 tab PO DAILY clopidogrel 75 mg PO DAILY donepezil 0 mg PO fluticasone propion-salmeterol 500-50 mcg/dose (Wixela Inhub) 1 ea PO BID folic acid 1 mg PO DAILY food supplemt, lactose-reduced (Boost) 1 ea PO BID 24 days hydroxychloroquine 400 mg (2 x 200 mg) PO DAILY levothyroxine 112 mcg PO DAILY 90 days meclizine 12.5 mg PO TID PRN pantoprazole 40 mg PO DAILY sertraline 100 mg PO DAILY sildenafil (pulm.hypertension) 20 mg PO TID sucralfate (Carafate) 1 g PO BID sulfamethoxazole-trimethoprim 800-160 mg (Bactrim DS) 1 tab PO BID 7 days Tobacco use date assessed: 07/10/22 Fall risk assessment: No Falls in past year Last assessed Fall Risk: 12/13/22 Dental Screening Dental Screen Date: 12/13/22 Did you have a dental visit in the last 12 months?: No Did you have a dental problem in the last 6 months where you did not have access to dental care?: No Was dental information given to patient?: Patient declined HPI HPI Comments History of Present Illness Details This is a 72-year-old female with mild recurrent major depression, unspecified connective tissue disease and pulmonary hypertension that comes for her physical exam accompanied by daughter, depression stable with medications. Unspecified connective tissue disease is follow by Rheumatology that has been stable. Pulmonary hypertension follow by pulmonology. Last mammogram was last year and has a mammogram scheduled for this year. Colonoscopy was less than 5 years ago as per patient. [facility] Medical History Dyslipidemia GERD (gastroesophageal reflux disease) Hypothyroidism Memory loss Mild recurrent major depression Moderate asthma Physical exam Pulmonary hypertension Undifferentiated connective tissue disease Surgical History History of History of hernia surgery History of hysterectomy Family History Father No problems noted. Mother No problems noted. Social History Housing: Apartment Alcohol intake: never Patient Tobacco Use Status: Never used Tobacco e-Cigarette/Vaping Use: Never Used Second Hand Smoke Exposure: Yes service: No Current occupational status: disabled Cognitive needs: No Hearing needs: No Vision needs: Yes Questionnaire Thrive Questionnaire Date Thrive assessed: 07/10/22 VIRGILIO-7 AMB Questionnaire VIRGILIO-7 Date VIRGILIO - 7 assessed: 07/10/22 Source: Developed by Drs. Sp Vieyra, Sussy Fernandez, Erik Leung and colleagues, with an educational kanu from [employer]. Review of Systems Const All systems reviewed & are unremarkable except as noted in HPI and below Eyes Reports no additional complaints, Denies change in vision and Denies other visual disturbances Card Denies chest pain at rest, Denies chest pain with activity, Denies edema, Denies irregular heart rhythm, Denies claudication, Denies dyspnea, Denies dyspnea on exertion, Denies orthopnea, Denies paroxysmal nocturnal dyspnea and Denies slow heart rate Resp Denies cough, Denies dyspnea and Denies dyspnea on exertion GI Denies abdominal pain, Denies change in bowel habits, Denies excessive flatus, Denies nausea and Denies vomiting Denies urinary incontinence, Denies urinary hesitancy and Denies urinary urgency Musc Denies abnormal gait, Denies atrophy, Denies deformity and Denies limited range of motion Skin/Breast Denies bleeding lesions, Denies changing lesions and Denies rash Neuro Denies abnormal gait and Denies lack of coordination Physical exam (Primary Care) Vital Signs: Last Vital Signs Pulse 68 12/13/22 10:11 BP 100/70 12/13/22 10:11 Pulse Ox 97 12/13/22 10:11 Oxygen Delivery Method Room Air 12/13/22 10:11 BMI result Body Mass Index 28.5 Tobacco/Smoking Status: Tobacco use Status Tobacco use date assessed 07/10/22 12/13/22 10:18 Patient Tobacco Use Status Never used Tobacco 12/13/22 10:18 e-Cigarette/Vaping Use Never Used 12/13/22 10:18 Thrive Assessment: Date of Thrive Assessment Date Thrive assessed 07/10/22 12/13/22 10:18 Const Orientation/consciousness: patient oriented x3 HENMT Head: Yes normal to inspection, Yes normocephalic and Yes atraumatic Ears: external ears normal Eyes General: appearance normal, both eyes and all related structures Eyelids: Yes eyelids normal Conjunctivae: conjunctivae normal Neck Neck: Yes normal visual inspection and Yes supple Resp Effort & Inspection: normal respiratory effort Auscultation: clear to auscultation bilaterally Cardio Jugular venous distension: no JVD Rate: regular rate Rhythm: regular rhythm Heart sounds: S1 normal heart sound present and S2 normal heart sound present GI Inspection: Yes normal to inspection Palpation (GI): Soft to palpation and nontender Auscultation: normal bowel sounds Skin General skin exam: no rashes or lesions noted Neuro General: patient oriented x3 and no focal motor deficits Extrem General: Yes full ROM Psych Appearance: grossly normal Assessment and Plan Assessment & Plan (1) Physical exam: Code(s): Z00.00 - Encounter for general adult medical examination without abnormal findings Plan: Repeat in a year. (2) Mild recurrent major depression: Code(s): F33.0 - Major depressive disorder, recurrent, mild Plan: Continue sertraline. (3) Pulmonary hypertension: Code(s): I27.20 - Pulmonary hypertension, unspecified Plan: Continue sildenafil. Follow-up with pulmonology. (4) Undifferentiated connective tissue disease: Code(s): M35.9 - Systemic involvement of connective tissue, unspecified Plan: Continue hydroxychloroquine. Orders: Orders Comprehensive [place]. Panel Fast 4 Months Z00.00 - Encounter for general adult medical examination without abnormal findings Lipid Panel 4 Months E78.5 - Hyperlipidemia, unspecified, Z00.00 - Encounter for general adult medical examination without abnormal findings Thyroid Stimulating Hormone 4 Months E03.9 - Hypothyroidism, unspecified Coding Level of Care Code Est Pt Prev Care >65y(06792) Diagnoses Physical exam Z00.00 Mild recurrent major depression F33.0 Pulmonary hypertension I27.20 Undifferentiated connective tissue disease M35.9 Time Spent (min) 32
== END 2022-12-13 10:38 | disposition home or self-care (01) ==
PROVIDERS: PCP Internal Medicine; Visit Provider Internal Medicine
DX: Z00.00 Encounter for general adult medical examination without abnormal findings (principal); F33.0 Major depressive disorder, recurrent, mild; I27.20 Pulmonary hypertension, unspecified; M35.9 Systemic involvement of connective tissue, unspecified
CPT/HCPCS: 99397

== ENCOUNTER 2022-12-14 10:07 | Outpatient (REF) | payer OTHER, SELFPAY ==
--- NOTE | ~2022-12-14 | MM_ITS ---
EXAMINATION: MM SCREENING DIGITAL BREAST TOMOSYNTHESIS, BILATERAL CLINICAL INFORMATION: Screening. Asymptomatic. The lifetime risk of breast cancer based on the Tyrer-Cuzick Model is 1.6%. COMPARISON: Mammography: This study is compared with prior exams dating back to 2018. TECHNIQUE: Digital breast tomosynthesis is performed in both the craniocaudal and mediolateral oblique views along with computer-aided detection (CAD). Synthesized 2D images are generated from the tomosynthesis. FINDINGS: There are scattered areas of fibroglandular density (ACR BI-RADS breast composition Category b). There are no significant masses, abnormal calcifications, or other abnormalities. MM/MM tomosynthesis screening BI IMPRESSION: No mammographic evidence of malignancy. ASSESSMENT: BI-RADS BI-RADS 1 - Negative RECOMMENDATION: Routine annual mammography screening. 1 year F/U This examination should not preclude the clinical evaluation of a suspicious palpable abnormality. This patient's information was entered into a reminder system with a target due date for their next mammogram.
== END 2022-12-14 10:08 | disposition home or self-care (01) ==
LOC: HO.MAMMO 10:07
PROVIDERS: PCP Internal Medicine; Visit Provider Internal Medicine
DX: Z12.31 Encounter for screening mammogram for malignant neoplasm of breast (principal)
CPT/HCPCS: 77063; 77067

== ENCOUNTER → 2022-12-14 10:45 | Outpatient (BNV) | payer OTHER, SELFPAY | PROVIDERS: PCP Internal Medicine; Visit Provider Radiology Diagnostic Radiology | DX: Z12.31 Encounter for screening mammogram for malignant neoplasm of breast (principal) | CPT/HCPCS: 77063; 77067 ==

== ENCOUNTER 2022-12-19 10:13 | Outpatient (REF) | payer OTHER, SELFPAY ==
--- NOTE | ~2022-12-19 | US_ITS ---
EXAMINATION: US RETROPERITONEAL LIMITED (RENAL ONLY) CLINICAL INFORMATION: Urinary tract infection, site not specified. COMPARISON: CT chest, abdomen and pelvis with contrast 06/21/2014. MRI abdomen without contrast 03/25/2013. Ultrasound abdomen limited 10/26/2012. Ultrasound abdomen complete 10/10/2012. TECHNIQUE: Real-time imaging of the kidneys. FINDINGS: RIGHT KIDNEY: 10.4 x 4.6 x 4.7 cm (SAG x AP x TRV). The kidney is normal in size, contour, and echogenicity. Renal cortical thickness is normal. No calculi or focal parenchymal lesions. No hydronephrosis. LEFT KIDNEY: 10.3 x 4.8 x 4.2 cm (SAG x AP x TRV). The kidney is normal in size, contour, and echogenicity. Renal cortical thickness is normal. No focal parenchymal lesions or hydronephrosis. There is a 0.4 cm nonobstructive calculus in the midpole. US/US renal BI IMPRESSION: Nonobstructive 0.4 cm calculus in the midpole of the left kidney.
== END 2022-12-19 10:14 | disposition home or self-care (01) ==
LOC: HO.US 10:13
PROVIDERS: Visit Provider Urology
DX: N39.0 Urinary tract infection, site not specified (principal)
CPT/HCPCS: 76775

== ENCOUNTER 2023-01-12 10:14 | Outpatient (AMB) | payer OTHER, SELFPAY ==
--- NOTE | 2023-01-11 16:25 | A.OFFVIS_ITS ---
Intake Intake Visit Reasons: 5w/cysto/US Intake Note: Patient presents today for a CYSTOSCOPY Procedure: Meds: Bactrim Allergies to Antibiotic: Levofloxacin Blood Thinner: None Urinalysis test clear for Cysto? Disposible Uro-G Cystoscope Cannula: Lot: [id number] Exp: 11/10/2024 Dewatering Filtering Supervisor Required: No Accompanied by: Grand Child Allergies potassium chloride [Potassium Chloride] Allergy (Severe, Verified 01/12/23 10:35) SWELLING aspirin Allergy (Intermediate, Verified 01/12/23 10:35) bleeding morphine [MORPHINE] Allergy (Intermediate, Verified 01/12/23 10:35) HALLUCINATIONS levofloxacin [From Levaquin] Adverse Reaction (Mild, Verified 01/12/23 10:35) SEVERE DIARRHEA ranitidine [From Zantac] Adverse Reaction (Mild, Verified 01/12/23 10:35) CONFUSION Medication List - Last Reconciled 01/12/23 by Brian Shankar MD acetaminophen ER (Tylenol Arthritis Pain) 650 mg PO Q8H albuterol sulfate 2.5 mg (3 mL) inhalation TID PRN atorvastatin 10 mg PO DAILY calcium carbonate-vitamin D3 600 mg-10 mcg (400 unit) 1 tab PO DAILY clopidogrel 75 mg PO DAILY donepezil 0 mg PO fluticasone propion-salmeterol 500-50 mcg/dose (Wixela Inhub) 1 ea PO BID folic acid 1 mg PO DAILY food supplemt, lactose-reduced (Boost) 1 ea PO BID 24 days hydroxychloroquine 400 mg (2 x 200 mg) PO DAILY levofloxacin 250 mg PO DAILY levothyroxine 112 mcg PO DAILY 90 days meclizine 12.5 mg PO TID PRN pantoprazole 40 mg PO DAILY sertraline 100 mg PO DAILY sildenafil (pulm.hypertension) 20 mg PO TID sucralfate (Carafate) 1 g PO BID sulfamethoxazole-trimethoprim 800-160 mg (Bactrim DS) 1 tab PO BID 7 days HPI HPI Comments History of Present Illness Details Isela is a 72-year-old female who presents today to the office for a 5- week follow up. 01/12/2023? She was last seen by me on 12/06/2022 for recurrent urinary tract infections. Cystoscopy was discussed to be scheduled at that time. Urine was sent for Microgen testing and renal US was ordered at that time. I have reviewed the results of renal US from 12/19/2022 revealed nonobstructive 0.4 cm calculus in the midpole of the left kidney. She denies any recurrent urinary symptoms at this time. She is allergic to penicillin. I have reviewed the Microgen testing results which came back prevotella bacteria in urine and sensitive to Levaquin, pateint was not treated for this results. Cystoscopy findings revealed bladder wall thickening, erythematous changes consistent with cystitis. Review of charts: Last visit: 12/06/22-- The patient presents with her granddaughter who interprets for her.? She was seen in the emergency on 11/10/22. At that time urine culture was done. The patient had her first UTI episode in the month of September 2022 and since then she had four rounds of antibiotic therapy.? The patient denies dysuria and urinary symptoms, urgency or urinary incontinence currently. Urine culture results reviewed--11/22/22-- > 100,000 cfu/ml? Mixed bacterial tisha.? Evaluation today UA: leukocytes-- 3+, blood-- 2+, nitrite-- negative. PVR: 46 mL. Plan: Cystoscopy discussed to be scheduled. Urine sent for MicroGen testing. Renal US was ordered. 01/12/2023: Evaluation today?UA? Leukocytes: trace; blood: 2+ 01/12/2023?Plan: Left kidney. Will monitor renal US in one year. Chronic cystitis. Patient was not previously treated for Microgen results. Will place her on Levaquin 200 mg 7 days. Follow up with the nurse in 2 months for catheterized urine to repeat Microgen testing. Follow up with me in 6 months. [facility] Medical History Dyslipidemia GERD (gastroesophageal reflux disease) Hypothyroidism Memory loss Mild recurrent major depression Moderate asthma Physical exam Pulmonary hypertension Undifferentiated connective tissue disease Surgical History History of History of hernia surgery History of hysterectomy Family History Father No problems noted. Mother No problems noted. Social History Housing: Apartment Alcohol intake: never Patient Tobacco Use Status: Never used Tobacco e-Cigarette/Vaping Use: Never Used Second Hand Smoke Exposure: Yes service: No Current occupational status: disabled Cognitive needs: No Hearing needs: No Vision needs: Yes Review of Systems Const All systems reviewed & are unremarkable except as noted in HPI and below Reports no additional complaints Eyes Reports no additional complaints ENT Reports no additional complaints Card Denies dyspnea Resp Denies cough and Denies dyspnea GI Reports no additional complaints Reports no additional complaints Musc Reports no additional complaints Skin/Breast Denies rash and Denies unusual bruising Neuro Reports no additional complaints Psych Reports no additional complaints Endo Reports no additional complaints Jayme/Lymph Reports no additional complaints Aller/Immun Reports no additional complaints Physical Exam Const General: cooperative, healthy appearing and no acute distress Orientation/consciousness: patient oriented x3 HEENT Head: Yes normal to inspection, Yes normocephalic and Yes atraumatic Eyes Conjunctivae: conjunctivae normal Neck Neck: Yes normal visual inspection and Yes trachea midline Chest Chest palpation & inspection: normal inspection of the chest Resp Effort & Inspection: normal respiratory effort Cardio Rate: regular rate GI Inspection: Yes normal to inspection General: No no CVA tenderness External Female Exam: normal external appearance Speculum Exam - Vagina: vagina atrophic Back/Spine/Pelvis Back: No no CVA tenderness Neuro General: patient oriented x3 Psych Appearance: grossly normal Office Procedures Cystoscopy Consent Discussed risk and benefit or proposed procedure with the patient. Information consent for procedure given to the patient. Discussed technical aspects, risks, benefits and alternatives in full. Addressed all of the patient's questions and concerns regarding the procedure. The patient demonstrated knowledge and understanding. They wish to proceed with this procedure. Preparation The patient was prepped in the usual manner. A ginseng farmer was present and in the room. Genitalia was prepped with betadine solution in a sterile manner. Lidocaine Jelly 2% was placed into the urethra and 16Fr flexible Olympus cystoscope was inserted into the meatus after adequate lubrication. Procedure Time out per protocol performed. Bladder Inspection Bladder Inspection: The bladder was inspected in its entirety with utilization retroflexion displaying: Tumor(s): none visualized Trabeculation: moderate Mucosal Erthema: mild Orifices: normal shape and position Urethra: normal Cystoscopy findings: no suspicious bladder lesions visualized [id number] DISPOSABLE SCOPE URO-G FLEXIBLE SCOPE Procedure code (CPT) selection complete Office Meds lidocaine HCl Performing Provider: Brian Shankar MD Administered by: Kathi Jones RN on 01/12/23 10:45 Dose Route Admin Location Lot Number Expiration Date NDC Wire Fence Erector 10 mL intra-urethral nitrofurantoin monohyd/m-cryst 100 mg Performing Provider: Brian Shankar MD Administered by: Kathi Jones RN on 01/12/23 10:45 Dose Route Admin Location Lot Number Expiration Date ND Wire Fence Erector 100 mg PO naproxen Performing Provider: Brian Shankar MD Administered by: Kathi Jones RN on 01/12/23 10:45 Dose Route Admin Location Lot Number Expiration Date NDC Wire Fence Erector 500 mg PO Results AMB Urinalysis, Automated UA Leukoctes 15 Mar/uL Last Edit by LIN Vidal on 01/12/23 10:48 UA Nitrite Negative Last Edit by LIN Vidal on 01/12/23 10:48 UA Urobilinogen 0.2 mg/dL Last Edit by LIN Vidal on 01/12/23 10:4 8 UA Protein 30 mg/dL Last Edit by LIN Vidal on 01/12/23 10:48 1+ Flores Huff 01/12/23 10:48 UA pH 6.0 Last Edit by LIN Vidal on 01/12/23 10:48 UA Blood 25 Kody/uL Last Edit by LIN Vidal on 01/12/23 10:48 1+ Flores Huff 01/12/23 10:48 UA Specific [place] 1.030 Last Edit by LIN Vidal on 01/12/23 10: 48 UA Ketone Positive Last Edit by LIN Vidal on 01/12/23 10:48 5MG Flores Huff 01/12/23 10:48 UA Bilirubin 2 mg/dL Last Edit by LIN Vidal on 01/12/23 10:48 2+ Flores Huff 01/12/23 10:48 UA Glucose 0 mg/dL Last Edit by Svitlanaherson Refugio LIN on 01/12/23 10:48 Results Reviewed Results Reviewed: Laboratory Last Values Urine pH (Auto) 6.0 01/12/23 10:41 Specific [place] (Auto) 1.030 01/12/23 10:41 Urine Protein (Auto) 30 mg/dL 01/12/23 10:41 Glucose (UA)(Auto) 0 mg/dL 01/12/23 10:41 Urine Ketones (Auto) Positive 01/12/23 10:41 Urine Blood (Auto) 25 Kody/uL 01/12/23 10:41 Urine Nitrite (Auto) Negative 01/12/23 10:41 Urine Bilirubin (Auto) 2 mg/dL 01/12/23 10:41 Urine Urobilinogen (Auto) 0.2 mg/dL 01/12/23 10:41 Leukocyte Esterase (Auto) 15 Mar/uL 01/12/23 10:41 Date of Service: 12/19/22 EXAMINATION: US RETROPERITONEAL LIMITED (RENAL ONLY) CLINICAL INFORMATION: Urinary tract infection, site not specified. COMPARISON: CT chest, abdomen and pelvis with contrast 06/21/2014. MRI abdomen without contrast 03/25/2013. Ultrasound abdomen limited 10/26/2012. Ultrasound abdomen complete 10/10/2012. FINDINGS: RIGHT KIDNEY: 10.4 x 4.6 x 4.7 cm (SAG x AP x TRV). The kidney is normal in size, contour, and echogenicity. Renal cortical thickness is normal. No calculi or focal parenchymal lesions. No hydronephrosis. LEFT KIDNEY: 10.3 x 4.8 x 4.2 cm (SAG x AP x TRV). The kidney is normal in size, contour, and echogenicity. Renal cortical thickness is normal. No focal parenchymal lesions or hydronephrosis. There is a 0.4 cm nonobstructive calculus in the midpole. IMPRESSION: Nonobstructive 0.4 cm calculus in the midpole of the left kidney. Assessment & Plan Assessment & Plan (1) Recurrent UTI: Code(s): N39.0 - Urinary tract infection, site not specified (2) Chronic cystitis: Code(s): N30.20 - Other chronic cystitis without hematuria (3) Kidney stone on left side: Code(s): N20.0 - Calculus of kidney Plan Left kidney. Will monitor renal US in one year. Chronic cystitis. Patient was not previously treated for Microgen results. Will place her on Levaquin 200 mg 7 days. Follow up with the nurse in 2 months for catheterized urine to repeat Microgen testing. Follow up with me in 6 months. Orders: Orders US renal BI 11 Months N20.0 - Calculus of kidney, N39.0 - Urinary tract infection, site not specified AMB Cystoscopy Today N39.0 - Urinary tract infection, site not specified AMB Urinalysis Automated Today Z13.9 - Encounter for screening, unspecified Medications: New levofloxacin 250 mg PO DAILY 7 tabs 0RF Patient Instructions: The patient had an opportunity to ask questions regarding treatment plan. All questions were answered. Imaging, Laboratory studies and physical exam results were discussed and reviewed in detail. No major barriers to understanding were identified. The patient expressed understanding and agreement with the above treatment plan.? ? ? The patient is aware they should contact our office by phone for worsening of their current condition or the appearance of new symptoms. Compliance is encouraged with any medications and followup testing that is ordered.? ? ? It is a privilege to be allowed the opportunity to participate in the urologic care of your patient. If you have any questions or concerns regarding treatment for the above conditions please do not hesitate to contact me. The office telephone contact is [phone].? ? ? This note is constructed in part using voice recognition software. While every effort has been made to ensure accuracy dealer development manager errors may have been included.? ? ? Yours sincerely,? ? ? Brain Shankar MD? Coding Level of Care Code Est Pt Level 3 (97425) Diagnoses Recurrent UTI N39.0 Chronic cystitis N30.20 Kidney stone on left side N20.0 CPT Codes Cystoscopy - CPT: 69867-[id number] ([id number]) Cystoscopy - CPT: DISPOSABLE SCOPE URO-G FLEXIBLE SCOPE ([id number])
== END 2023-01-12 11:18 | disposition home or self-care (01) ==
PROVIDERS: PCP Internal Medicine; Visit Provider Urology
DX: N30.20 Other chronic cystitis without hematuria (principal); N20.0 Calculus of kidney; Z13.9 Encounter for screening, unspecified
CPT/HCPCS: 52000

== ENCOUNTER → 2023-01-12 10:14 | Outpatient (BNVA) | payer OTHER, SELFPAY | PROVIDERS: PCP Internal Medicine; Visit Provider Urology | DX: N30.20 Other chronic cystitis without hematuria (principal); N20.0 Calculus of kidney | CPT/HCPCS: 52000; 81003; C1747 ==

== ENCOUNTER 2023-02-13 16:03 | Outpatient (AMB) | payer OTHER, SELFPAY ==
[2023-02-13 16:06] VITALS: BP 132/90; PULSE 66; O2SAT 97; BMI 27.8
--- NOTE | 2023-02-13 16:06 | A.OFFPC_ITS ---
Vital Signs 02/13/23 16:06 Height 5 ft 2 in Weight 152 lb BMI 27.8 BP 132/90 H Blood Pressure Location Lt brachial Position Sitting Pulse 66 Pulse Source Pulse Oximeter Temp Source Skin Pulse Oximetry (%) 97 Oxygen Delivery Method Room Air Intake Visit Reasons: Low appetite, dizziness, weakness Intake Note: pt states halfway dizziness, weakness and poor appetite Clinical Dietician Required: No Allergies potassium chloride [Potassium Chloride] Allergy (Severe, Verified 02/13/23 16:20) SWELLING aspirin Allergy (Intermediate, Verified 02/13/23 16:20) bleeding morphine [MORPHINE] Allergy (Intermediate, Verified 02/13/23 16:20) HALLUCINATIONS levofloxacin [From Levaquin] Adverse Reaction (Mild, Verified 02/13/23 16:20) SEVERE DIARRHEA ranitidine [From Zantac] Adverse Reaction (Mild, Verified 02/13/23 16:20) CONFUSION Medication List - Last Reconciled 02/13/23 by ALISE Mchugh acetaminophen ER (Tylenol Arthritis Pain) 650 mg PO Q8H albuterol sulfate 2.5 mg (3 mL) inhalation TID PRN atorvastatin 10 mg PO DAILY calcium carbonate-vitamin D3 600 mg-10 mcg (400 unit) 1 tab PO DAILY clopidogrel 75 mg PO DAILY donepezil 0 mg PO fluoxetine 20 mg PO DAILY fluticasone propion-salmeterol 500-50 mcg/dose (Wixela Inhub) 1 ea PO BID folic acid 1 mg PO DAILY food supplemt, lactose-reduced (Boost) 1 ea PO BID 24 days hydroxychloroquine 400 mg (2 x 200 mg) PO DAILY levothyroxine 112 mcg PO DAILY 90 days meclizine 12.5 mg PO TID PRN memantine mg PO pantoprazole 40 mg PO DAILY sildenafil (pulm.hypertension) 20 mg PO TID sucralfate (Carafate) 1 g PO BID Tobacco use date assessed: 02/13/23 Fall risk assessment: No Falls in past year Last assessed Fall Risk: 02/13/23 HPI Low appetite, dizziness, weakness HPI Details Patient is a 72-year-old female who presents today for the same day visit due to low appetite, intermittent dizziness and weakness for long time now, slightly worsening in the past [address] Coronado. Granddaughter reports that patient did have poor appetite for long time now, she barely eats, patient eats 3 meals per day. She also drinks boost sometimes, and she does not like this. Patient is followed by Neurology due to memory issues. Patient denies any urinary symptoms. Reports mild dizziness in the office today. Does not think she has room spinning sensation. Reports when she lays down she feels better and dizziness resolves. Patient is a Welsh-speaking and her granddaughter Kena was helping with interpretation. [facility] Medical History Mild recurrent major depression Memory loss Moderate asthma GERD (gastroesophageal reflux disease) Hypothyroidism Dyslipidemia Physical exam Pulmonary hypertension Undifferentiated connective tissue disease Surgical History History of hysterectomy History of hernia surgery History of Family History Father No problems noted. Mother No problems noted. Social History Housing: Apartment Alcohol intake: never Patient Tobacco Use Status: Never used Tobacco e-Cigarette/Vaping Use: Never Used Second Hand Smoke Exposure: Yes service: No Current occupational status: disabled Cognitive needs: No Hearing needs: No Vision needs: Yes Questionnaire Thrive Questionnaire Date Thrive assessed: 07/10/22 AUDIT C Alcohol Use Questionnaire (AUDIT-C) 1. How often do you have a drink containing alcohol?: Never Total Score: 0 Score Reviewed/Action Taken: No VIRGILIO-7 AMB Questionnaire VIRGILIO-7 Date VIRGILIO - 7 assessed: 07/10/22 Source: Developed by Drs. Sp Vieyra, Sussy Fernandez, Erik Leung and colleagues, with an educational kanu from [employer]. Review of Systems Const Denies body aches, Denies chills, Denies fever(s), Denies headache(s), Reports poor appetite and Reports weakness Eyes Denies change in vision ENT Reports dizziness, Denies otalgia, Denies headache(s), Denies nasal discharge, Denies sinus pain and Denies sore throat Card Denies chest pain, Denies edema, Denies lightheadedness and Denies dyspnea Resp Denies cough, Denies dyspnea and Denies wheezing GI Denies abdominal pain, Denies constipation, Denies diarrhea, Denies nausea and Denies vomiting Denies hematuria, Denies dysuria and Denies flank pain Musc Denies myalgias Skin/Breast Denies rash Neuro Reports dizziness, Denies headache(s) and Reports weakness Aller/Immun Denies wheezing Physical exam (Primary Care) Vital Signs: Last Vital Signs Pulse 66 02/13/23 16:06 BP 132/90 H 02/13/23 16:06 Pulse Ox 97 02/13/23 16:06 Oxygen Delivery Method Room Air 02/13/23 16:06 BMI result Body Mass Index 27.8 Tobacco/Smoking Status: Tobacco use Status Tobacco use date assessed 02/13/23 02/13/23 16:07 Patient Tobacco Use Status Never used Tobacco 02/13/23 16:07 e-Cigarette/Vaping Use Never Used 02/13/23 16:07 Thrive Assessment: Date of Thrive Assessment Date Thrive assessed 07/10/22 02/13/23 16:07 Const General: cooperative and no acute distress Orientation/consciousness: patient oriented x3 HENMT Head: Yes normocephalic and Yes atraumatic Mouth: oropharynx normal and moist mucous membranes Throat: Yes posterior oropharynx normal Eyes General: appearance normal, both eyes and all related structures Pupils: Equal, round and reactive pupils present Neck Neck: Yes normal visual inspection, Yes full ROM and Yes no lymphadenopathy Resp Effort & Inspection: normal respiratory effort and able to speak in complete sentences Auscultation: clear to auscultation bilaterally, no crackles, no rales, no rhonchi and no wheezes Cardio Rate: regular rate Rhythm: regular rhythm Heart sounds: S1 normal heart sound present, S2 normal heart sound present and no murmurs GI Palpation (GI): Soft to palpation, not firm, nontender, no guarding and not rigid Auscultation: normal bowel sounds Skin General skin exam: no rashes or lesions noted Neuro General: patient oriented x3 and CN's II-XI intact bilaterally Cranial nerves: Yes Equal, round and reactive pupils present Gait exam (Neuro): Normal gait present Extrem General: Yes full ROM and No edema Assessment and Plan Assessment & Plan (1) Dizziness: Code(s): R42 - Dizziness and giddiness Plan: Patient reports intermittent dizziness and she feels better laying down. Reports mild dizziness in the office, and then towards the end of the visit she did not have dizziness. Orthostatic blood pressures: Laying down 134/70, sitting down 130/70, standing 128/66. Patient did have meclizine in the past for dizziness, will sent refill on meclizine 1 tablet t.i.d. p.r.n.-educated about drowsiness. Signs and symptoms reviewed when to notify provider or go to the emergency department Blood work ordered, will also check urinalysis (2) Weight loss: Code(s): R63.4 - Abnormal weight loss Plan: Same as above (3) Decreased appetite: Code(s): R63.0 - Anorexia Plan: Same as above Orders: Orders UA CC w/rflx Micro + Cult Today R63.0 - Anorexia Complete Blood Count Auto Diff Today R63.0 - Anorexia Vitamin D 25-OH Total Today R63.0 - Anorexia Comprehensive Met. Panel Today R63.0 - Anorexia Medications: New meclizine 12.5 mg PO TID PRN 20 tabs 0RF dizziness R42 - Dizziness and giddiness Coding Level of Care Code Est Pt Level 3 (11355) Diagnoses Dizziness R42 Weight loss R63.4 Decreased appetite R63.0
== END 2023-02-13 16:38 | disposition home or self-care (01) ==
PROVIDERS: PCP Internal Medicine; Visit Provider Nurse Practitioner Family
DX: R42 Dizziness and giddiness (principal); R63.4 Abnormal weight loss; R63.0 Anorexia
CPT/HCPCS: 99213

== ENCOUNTER 2023-02-14 09:27 | Outpatient (REF) | payer OTHER, SELFPAY ==
[2023-02-14 09:49] LABS: MANUAL DIFF FLAG NO
[2023-02-14 10:16] LABS: Basophils Percent Auto 0.7 % (0-2); Hematocrit 38.9 % (37.0-47.0); Imm Gran Abs Auto 0.01 X10*3/uL (0.00-0.03); Imm Gran Pct Auto 0.2 % (0.0-0.4); Lymphocytes Absolute Auto 0.5 X10*3/uL (1.2-4.9); Lymphocytes Percent Auto 11.4 % (20-40); Mean Corpuscular HGB Conc 30.8 g/dl (31.0-35.0); Mean Corpuscular Hemoglobin 26.1 pg (27.0-33.0); Mean Corpuscular Volume 84.6 fL (80.0-98.0); Mean Platelet Volume 10.1 fL (9.4-12.3); Monocytes Absolute Auto 0.4 X10*3/uL (0.1-1.2); Monocytes Percent Auto 9.4 % (2-11); Neutrophils Absolute Auto 3.4 x10*3/uL (2.0-8.3); Neutrophils Percent Auto 78.3 % (45-73); Platelet Count 185 X10*3/uL (160-400); Red Cell Distribution Width 15.3 % (11.0-16.0); White Blood Count 4.4 X10*3/uL (4.8-10.8)
[2023-02-14 11:51] LABS: Alanine Aminotransferase 19 U/L (0-31); Alkaline Phosphatase 64 U/L (39-117); Anion Gap 11 (12-20); Aspartate Amino Transferase 27 U/L (5-31); Bilirubin Total 0.9 mg/dL (0.0-1.0); Blood Urea Nitrogen 16 mg/dL (9-16); Calcium 9.1 mg/dL (8.4-10.2); Carbon Dioxide 27 mmol/L (22-29); Chloride 107 mmol/L (96-108); Estimated Glomerular Filt Rate 57; Glucose Random 110 mg/dL (60-115); Sodium 141 mmol/L (135-145)
[2023-02-14 11:54] LABS: Vitamin D 25-OH Total 44.5 ng/mL (>30)
[2023-02-14 14:53] LABS: Appearance Urine Cloudy; Color Urine Dark Yellow; Glucose Urine UA Negative (Negative); Leukocyte Esterase Urine Large (3+) (Negative); Nitrite Urine Negative (Negative); UMIC TRIGGER UACC YES; Urine Blood Small (1+) (Negative); Urine Ketones Negative (Negative); Urine Protein 30 (1+) mg/dL (Neg-Trace)
[2023-02-14 14:56] LABS: Bacteria Urine 1+ (None Seen); Hyaline Casts Urine 0-2 /LPF (0-2); RBC Urine >20 /HPF (0-2); UACC Culture Trigger YES; WBC Urine >50 /HPF (0-5)
== END 2023-02-14 09:28 | disposition home or self-care (01) ==
LOC: HO.LAB 09:27
PROVIDERS: PCP Internal Medicine; Visit Provider Nurse Practitioner Family
DX: R63.0 Anorexia (principal); R82.90 Unspecified abnormal findings in urine; R42 Dizziness and giddiness; K21.9 Gastro-esophageal reflux disease without esophagitis; F32.A Depression, unspecified; E03.9 Hypothyroidism, unspecified
CPT/HCPCS: 36415; 80053; 81001; 82306; 85025; 87086

== ENCOUNTER → 2023-03-09 09:19 | Outpatient (BNVA) | payer OTHER, SELFPAY | PROVIDERS: PCP Internal Medicine; Visit Provider Urology | DX: N39.0 Urinary tract infection, site not specified (principal) | CPT/HCPCS: 51701 ==

== ENCOUNTER 2023-05-04 09:14 | Outpatient (AMB) | payer OTHER, SELFPAY ==
--- NOTE | 2023-05-04 09:16 | A.OFFPC_ITS ---
Vital Signs 05/04/23 09:17 Height 5 ft 2 in Weight 150 lb 4 oz BMI 27.5 BP 100/50 L Blood Pressure Location Lt brachial Position Sitting Pulse 76 Pulse Source Pulse Oximeter Pulse Oximetry (%) 98 Oxygen Delivery Method Room Air Intake Visit Reasons: thyroid,pulmonary hypertension Cruise Counselor Required: No Cruise Counselor Name: Kena Lynn Information Interpreted: non-clinical & clinical Military Lawyer: Present Accompanied by: Grand Child Allergies potassium chloride [Potassium Chloride] Allergy (Severe, Verified 05/04/23 09:35) SWELLING aspirin Allergy (Intermediate, Verified 05/04/23 09:35) bleeding morphine [MORPHINE] Allergy (Intermediate, Verified 05/04/23 09:35) HALLUCINATIONS levofloxacin [From Levaquin] Adverse Reaction (Mild, Verified 05/04/23 09:35) SEVERE DIARRHEA ranitidine [From Zantac] Adverse Reaction (Mild, Verified 05/04/23 09:35) CONFUSION Medication List - Last Reconciled 05/04/23 by ALISE Galvin acetaminophen ER (Tylenol Arthritis Pain) 650 mg PO Q8H albuterol sulfate 2.5 mg (3 mL) inhalation TID PRN atorvastatin 10 mg PO DAILY calcium carbonate-vitamin D3 600 mg-10 mcg (400 unit) 1 tab PO DAILY citalopram (Celexa) 20 mg PO DAILY clopidogrel 75 mg PO DAILY donepezil 0 mg PO fluticasone propion-salmeterol 500-50 mcg/dose (Wixela Inhub) 1 ea PO BID folic acid 1 mg PO DAILY food supplemt, lactose-reduced (Boost) 1 ea PO BID 24 days hydroxychloroquine 400 mg (2 x 200 mg) PO DAILY levothyroxine 112 mcg PO DAILY 90 days meclizine 12.5 mg PO TID PRN memantine mg PO pantoprazole 40 mg PO DAILY sildenafil (pulm.hypertension) 20 mg PO TID sucralfate (Carafate) 1 g PO BID Tobacco use date assessed: 02/13/23 Fall risk assessment: No Falls in past year Last assessed Fall Risk: 05/04/23 Dental Screening Dental Screen Date: 05/04/23 Did you have a dental visit in the last 12 months?: No Did you have a dental problem in the last 6 months where you did not have access to dental care?: No Was dental information given to patient?: No HPI HPI Comments History of Present Illness Details 72-year-old female past medical history significant for GERD, dyslipidemia, pulmonary hypertension, memory loss, depression, decreased appetite with weight loss. Patient last seen January, patient presents today for follow-up visit with her granddaughter. Granddaughter reports continued decline in patients memory and on going poor appetite. Patient follows with neurology for her memory on memantine and donepezil. Patient also was experience worsening depression, depression medication was changed to Celexa 20 mg daily by neurologist. Patient's granddaughter reports continue to encourage patient to snack throughout the day. States patient does see 3 meals per day however his small portions. Weight decreased by 2 lb since April. Continue to supplement with boost. [facility] Medical History Mild recurrent major depression Memory loss Moderate asthma GERD (gastroesophageal reflux disease) Hypothyroidism Dyslipidemia Physical exam Pulmonary hypertension Undifferentiated connective tissue disease Surgical History History of hysterectomy History of hernia surgery History of Family History Father No problems noted. Mother No problems noted. Social History Housing: Apartment Alcohol intake: never Patient Tobacco Use Status: Never used Tobacco e-Cigarette/Vaping Use: Never Used Second Hand Smoke Exposure: Yes service: No Current occupational status: disabled Cognitive needs: No Hearing needs: No Vision needs: Yes Questionnaire Thrive Questionnaire Date Thrive assessed: 07/10/22 VIRGILIO-7 AMB Questionnaire VIRGILIO-7 Date VIRGILIO - 7 assessed: 07/10/22 Source: Developed by Drs. Sp Vieyra, Sussy Fernandez, Erik Leung and colleagues, with an educational kanu from [employer]. Review of Systems Const Denies chills, Denies fatigue, Denies fever(s) and Reports poor appetite Eyes Denies no additional complaints ENT Reports Normal hearing present Card Denies chest pain, Denies syncope, Denies rapid heart rate and Denies dyspnea Resp Denies cough and Denies dyspnea GI Denies change in stool character, Denies constipation, Denies diarrhea, Denies nausea and Denies vomiting Denies urinary frequency, Denies dysuria and Denies urinary urgency Neuro Reports Normal hearing present, Denies confusion and Denies syncope Psych Denies confusion Endo Denies fatigue Physical exam (Primary Care) Vital Signs: Last Vital Signs Pulse 76 05/04/23 09:17 BP 100/50 L 05/04/23 09:17 Pulse Ox 98 05/04/23 09:17 Oxygen Delivery Method Room Air 05/04/23 09:17 BMI result Body Mass Index 27.5 Tobacco/Smoking Status: Tobacco use Status Tobacco use date assessed 02/13/23 05/04/23 09:24 Patient Tobacco Use Status Never used Tobacco 05/04/23 09:24 e-Cigarette/Vaping Use Never Used 05/04/23 09:24 Thrive Assessment: Date of Thrive Assessment Date Thrive assessed 07/10/22 05/04/23 09:24 Const General: No confusion Orientation/consciousness: No confusion Neuro General: No confusion Cranial nerves: Yes Normal hearing present Assessment and Plan Assessment & Plan (1) Mild recurrent major depression: Code(s): F33.0 - Major depressive disorder, recurrent, mild Plan: Continue on Celexa 20 mg daily (2) Hypothyroidism: Code(s): E03.9 - Hypothyroidism, unspecified Plan: Continue on levothyroxine 112 mcg daily. Patient reminded to get previously ordered blood work completed. (3) Dyslipidemia: Code(s): E78.5 - Hyperlipidemia, unspecified Plan: Continue on atorvastatin 10 mg daily. Encouraged to get previously ordered fasting blood work completed. Follow low-cholesterol diet. (4) GERD (gastroesophageal reflux disease): Code(s): K21.9 - Gastro-esophageal reflux disease without esophagitis Plan: Continue on Carafate. (5) Pulmonary hypertension: Code(s): I27.20 - Pulmonary hypertension, unspecified Plan: Continue on sildenafil 20 mg t.i.d. Coding Level of Care Code Est Pt Level 4 (24695) Diagnoses Mild recurrent major depression F33.0 Hypothyroidism E03.9 Dyslipidemia E78.5 GERD (gastroesophageal reflux disease) K21.9 Pulmonary hypertension I27.20
[2023-05-04 09:17] VITALS: BP 100/50; PULSE 76; O2SAT 98; BMI 27.5
== END 2023-05-04 09:41 | disposition home or self-care (01) ==
PROVIDERS: PCP Internal Medicine; Visit Provider Nurse Practitioner Family
DX: I27.20 Pulmonary hypertension, unspecified (principal); F33.0 Major depressive disorder, recurrent, mild; E03.9 Hypothyroidism, unspecified; E78.5 Hyperlipidemia, unspecified; K21.9 Gastro-esophageal reflux disease without esophagitis
CPT/HCPCS: 99214

== ENCOUNTER 2023-07-12 10:55 | Outpatient (AMB) | payer OTHER, SELFPAY ==
--- NOTE | 2023-07-12 11:09 | A.OFFVIS_ITS ---
Intake Intake Visit Reasons: 6 month Intake Note: Patient presents today for a follow-up Meds- None Allergies to Antibiotic- No Known Allergies Blood Thinner- None Post Void Residual:0ml Patient Symptoms: No Intensive Care Anaesthetist Required: No Accompanied by: justyn Allergies potassium chloride [Potassium Chloride] Allergy (Severe, Verified 08/14/23 14:28) SWELLING aspirin Allergy (Intermediate, Verified 08/14/23 14:28) bleeding morphine [MORPHINE] Allergy (Intermediate, Verified 08/14/23 14:28) HALLUCINATIONS levofloxacin [From Levaquin] Adverse Reaction (Mild, Verified 08/14/23 14:28) SEVERE DIARRHEA ranitidine [From Zantac] Adverse Reaction (Mild, Verified 08/14/23 14:28) CONFUSION HPI HPI Comments History of Present Illness Details 07/12/23--Isela is a 72-year-old female who presents today to the office for follow up.The patient is here with her daughter, she is followed for recurrent UTIs and left kidney stone 4 mm. She denies dysuria. Review of chart: 01/12/2023? She was last seen by me on 12/06/2022 for recurrent urinary tract infections. Cystoscopy was discussed to be scheduled at that time. Urine was sent for Microgen testing and renal US was ordered at that time. I have reviewed the results of renal US from 12/19/2022 revealed nonobstructive 0.4 cm calculus in the midpole of the left kidney. She denies any recurrent urinary symptoms at this time. She is allergic to penicillin. I have reviewed the Microgen testing results which came back prevotella bacteria in urine and sensitive to Levaquin, pateint was not treated for this results. Cystoscopy findings revealed bladder wall thickening, erythematous changes consistent with cystitis. 12/06/22-- The patient presents with her granddaughter who interprets for her.? She was seen in the emergency on 11/10/22. At that time urine culture was done. The patient had her first UTI episode in the month of September 2022 and since then she had four rounds of antibiotic therapy.? The patient denies dysuria and urinary symptoms, urgency or urinary incontinence currently. Urine culture results reviewed--11/22/22-- > 100,000 cfu/ml? Mixed bacterial tisha.? Evaluation today UA: leukocytes-- 3+, blood-- 2+, nitrite-- negative. PVR: 46 mL. Plan: Cystoscopy discussed to be scheduled. Urine sent for MicroGen testing. Renal US was ordered. 07/12/2023 ?Plan: Left kidney stone. Will continue to monitor. Follow up with me in 6 months. [facility] Medical History Mild recurrent major depression Memory loss Moderate asthma GERD (gastroesophageal reflux disease) Hypothyroidism Dyslipidemia Physical exam Pulmonary hypertension Undifferentiated connective tissue disease Surgical History History of hysterectomy History of hernia surgery History of Family History Father No problems noted. Mother No problems noted. Social History Housing: Apartment Alcohol intake: never Patient Tobacco Use Status: Never used Tobacco e-Cigarette/Vaping Use: Never Used Second Hand Smoke Exposure: Yes service: No Current occupational status: disabled Cognitive needs: No Hearing needs: No Vision needs: Yes Review of Systems Const All systems reviewed & are unremarkable except as noted in HPI and below Reports no additional complaints Eyes Reports no additional complaints ENT Reports no additional complaints Card Denies dyspnea Resp Denies cough and Denies dyspnea GI Reports no additional complaints Reports no additional complaints Musc Reports no additional complaints Skin/Breast Denies rash and Denies unusual bruising Neuro Reports no additional complaints Psych Reports no additional complaints Endo Reports no additional complaints Jayme/Lymph Reports no additional complaints Aller/Immun Reports no additional complaints Office Procedures Post Void Residual Post Residual Void Post Void Residual (PVR): 0 [id number] Void Residual by ultrasound Results Reviewed Results Reviewed: Date of Service: 12/19/22 EXAMINATION: US RETROPERITONEAL LIMITED (RENAL ONLY) CLINICAL INFORMATION: Urinary tract infection, site not specified. COMPARISON: CT chest, abdomen and pelvis with contrast 06/21/2014. MRI abdomen without contrast 03/25/2013. Ultrasound abdomen limited 10/26/2012. Ultrasound abdomen complete 10/10/2012. TECHNIQUE: Real-time imaging of the kidneys. FINDINGS: RIGHT KIDNEY: 10.4 x 4.6 x 4.7 cm (SAG x AP x TRV). The kidney is normal in size, contour, and echogenicity. Renal cortical thickness is normal. No calculi or focal parenchymal lesions. No hydronephrosis. LEFT KIDNEY: 10.3 x 4.8 x 4.2 cm (SAG x AP x TRV). The kidney is normal in size, contour, and echogenicity. Renal cortical thickness is normal. No focal parenchymal lesions or hydronephrosis. There is a 0.4 cm nonobstructive calculus in the midpole. IMPRESSION: Nonobstructive 0.4 cm calculus in the midpole of the left kidney. Assessment & Plan Assessment & Plan (1) Recurrent UTI: Code(s): N39.0 - Urinary tract infection, site not specified (2) Chronic cystitis: Code(s): N30.20 - Other chronic cystitis without hematuria (3) Kidney stone on left side: Code(s): N20.0 - Calculus of kidney Plan Left kidney stone. Will continue to monitor. Follow up with me in 6 months. Renal ultrasound prior Orders: Orders AMB Urinalysis Automated 07/12/23 R33.9 - Retention of urine, unspecified AMB Post Void Residual by ultrasound 07/12/23 R33.9 - Retention of urine, unspecified Patient Instructions: The patient had an opportunity to ask questions regarding treatment plan. All questions were answered. Imaging, Laboratory studies and physical exam results were discussed and reviewed in detail. No major barriers to understanding were identified. The patient expressed understanding and agreement with the above treatment plan. The patient is aware they should contact our office by phone for worsening of their current condition or the appearance of new symptoms. Compliance is encouraged with any medications and followup testing that is ordered. It is a privilege to be allowed the opportunity to participate in the urologic care of your patient. If you have any questions or concerns regarding treatment for the above conditions please do not hesitate to contact me. The office telephone contact is [phone]. This note is constructed in part using voice recognition software. While every effort has been made to ensure accuracy colloid mill operator errors may have been included. Yours sincerely, Brian Shankar MD Coding Level of Care Code Est Pt Level 3 (32921) Diagnoses Recurrent UTI N39.0 Chronic cystitis N30.20 Kidney stone on left side N20.0 CPT Codes Post Residual Void - PVR CPT Code: [id number] Void Residual by ultrasound ([id number])
== END 2023-07-12 11:46 | disposition home or self-care (01) ==
PROVIDERS: PCP Internal Medicine; Visit Provider Urology
DX: N39.0 Urinary tract infection, site not specified (principal); N30.20 Other chronic cystitis without hematuria; N20.0 Calculus of kidney
CPT/HCPCS: 99213

== ENCOUNTER → 2023-07-12 10:55 | Outpatient (BNVA) | payer OTHER, SELFPAY | PROVIDERS: PCP Internal Medicine; Visit Provider Urology | DX: N39.0 Urinary tract infection, site not specified (principal); N30.20 Other chronic cystitis without hematuria; N20.0 Calculus of kidney | CPT/HCPCS: 51798; 99212 ==

== ENCOUNTER 2023-08-10 08:21 | Outpatient (REF) | payer OTHER, SELFPAY ==
[2023-08-10 10:05] LABS: Alanine Aminotransferase 17 U/L (0-31); Albumin Level 4.1 g/dL (3.5-5.0); Alkaline Phosphatase 68 U/L (39-117); Anion Gap 14 (12-20); Aspartate Amino Transferase 25 U/L (5-31); Blood Urea Nitrogen 20 mg/dL (9-16); Calcium 9.4 mg/dL (8.4-10.2); Carbon Dioxide 26 mmol/L (22-29); Chloride 105 mmol/L (96-108); Cholesterol 118 mg/dL (<200); Estimated Glomerular Filt Rate > 60; Glucose Fasting 87 mg/dL (60-99); HDL Cholesterol 68 mg/dL (>40); LDL Cholesterol Calculated 41 mg/dL (<100); Potassium 4.1 mmol/L (3.3-5.1); Sodium 141 mmol/L (135-145); Total Protein 7.1 g/dL (6.5-8.0); Triglycerides 49 mg/dL (<150)
[2023-08-10 10:19] LABS: Thyroid Stimulating Hormone 0.26 uIU/mL (0.32-4.0)
== END 2023-08-10 08:22 | disposition home or self-care (01) ==
LOC: HO.LAB 08:21
PROVIDERS: PCP Internal Medicine; Visit Provider Internal Medicine
DX: Z00.00 Encounter for general adult medical examination without abnormal findings (principal); E03.9 Hypothyroidism, unspecified; E78.5 Hyperlipidemia, unspecified
CPT/HCPCS: 36415; 80053; 80061; 84443

== ENCOUNTER 2023-08-14 14:04 | Outpatient (AMB) | payer OTHER, SELFPAY ==
[2023-08-14 14:10] VITALS: BP 108/52; BMI 27.4
--- NOTE | 2023-08-14 14:10 | A.OFFPC_ITS ---
Vital Signs 08/14/23 14:10 Height 5 ft 2 in Weight 150 lb BMI 27.4 BP 108/52 L Blood Pressure Location Lt brachial Position Sitting Intake Visit Reasons: Thyroid Follow up Intake Note: Patient here for a follow up Thyroid Dubbing Machine Operator Required: No Accompanied by: Grand Child Allergies potassium chloride [Potassium Chloride] Allergy (Severe, Verified 08/14/23 14:28) SWELLING aspirin Allergy (Intermediate, Verified 08/14/23 14:28) bleeding morphine [MORPHINE] Allergy (Intermediate, Verified 08/14/23 14:28) HALLUCINATIONS levofloxacin [From Levaquin] Adverse Reaction (Mild, Verified 08/14/23 14:28) SEVERE DIARRHEA ranitidine [From Zantac] Adverse Reaction (Mild, Verified 08/14/23 14:28) CONFUSION Medication List - Last Reconciled 08/14/23 by Eileen Phillips MD albuterol sulfate 2.5 mg (3 mL) inhalation TID PRN atorvastatin 10 mg PO DAILY calcium carbonate-vitamin D3 600 mg-10 mcg (400 unit) 1 tab PO DAILY citalopram (Celexa) 20 mg PO DAILY clopidogrel 75 mg PO DAILY donepezil 0 mg PO fluticasone propion-salmeterol 500-50 mcg/dose (Wixela Inhub) 1 ea PO BID folic acid 1 mg PO DAILY food supplemt, lactose-reduced (Boost) 1 ea PO BID 24 days hydroxychloroquine 400 mg (2 x 200 mg) PO DAILY levothyroxine 112 mcg PO DAILY 90 days meclizine 12.5 mg PO TID PRN memantine mg PO pantoprazole 40 mg PO DAILY sildenafil (pulm.hypertension) 20 mg PO TID sucralfate (Carafate) 1 g PO BID tiotropium bromide 1.25 mcg/actuation (Spiriva Respimat) 2 puffs inhalation DAILY Tobacco use date assessed: 08/14/23 Fall risk assessment: No Falls in past year Last assessed Fall Risk: 08/14/23 Dental Screening Dental Screen Date: 08/14/23 Did you have a dental visit in the last 12 months?: No Did you have a dental problem in the last 6 months where you did not have access to dental care?: No Was dental information given to patient?: Patient has dentist HPI HPI Comments 2 History of Present Illness Details This is a 72-year-old female with mild recurrent major depression, undifferentiated connective tissue disease, hypothyroidism, pulmonary hypertension and dyslipidemia that comes today for follow-up on her conditions. Depression has markedly improved with SSRIs. On hydroxychloroquine for her u ndifferentiated connective tissue disease which is follow by Rheumatology and has not significantly changed. On sildenafil for her pulmonary hypertension which has improved and she has not on oxygen anymore. Cholesterol well control with medications. TSH is low and I will decrease levothyroxine from 112 mcg to 100 mcg. TSH will be recheck in 6 weeks. She is accompanied by merchandise displayer which is granddaughter. No chest pain or shortness of breath. [facility] Medical History Mild recurrent major depression Memory loss Moderate asthma GERD (gastroesophageal reflux disease) Hypothyroidism Dyslipidemia Physical exam Pulmonary hypertension Undifferentiated connective tissue disease Surgical History History of hysterectomy History of hernia surgery History of Family History Father No problems noted. Mother No problems noted. Social History Housing: Apartment Alcohol intake: never Patient Tobacco Use Status: Never used Tobacco e-Cigarette/Vaping Use: Never Used Second Hand Smoke Exposure: Yes service: No Current occupational status: disabled Cognitive needs: No Hearing needs: No Vision needs: Yes Questionnaire PHQ-9 Over the last 2 weeks, how often have you been bothered by any of the following problems? 1. Little interest or pleasure in doing things: several days 2. Feeling down, depressed, or hopeless: several days 3. Trouble falling or staying asleep, or sleeping too much: not at all 4. Feeling tired or having little energy: several days 5. Poor appetite or overeating: nearly every day 6. Feeling bad about yourself - or that you are a failure or have let yourself or your family down: several days 7. Trouble concentrating on things, such as reading the newspaper or watching television: not at all 8. Moving or speaking so slowly that other people could have noticed. Or the opposite - being so fidgety or restless that you have been moving around a lot more than usual: not at all 9. Thoughts that you would be better off or of hurting yourself in some way: not at all Total score: 7 Depression Screening Interpretation: Positive Depression Screening Follow-up: Existing condition and In treatment Depression Screening Done: Yes 61136 - PHQ-9 Billing: Yes Source: Developed by Drs. Sp Vieyra, Sussy Fernandez, Erik Leung and colleagues, with an educational kanu from [employer]. Thrive Questionnaire Date Thrive assessed: 08/14/23 I am a: Patient What is your living situation today?: I have a steady place to live Within the past 12 months, did the food you bought not last and you didn't have the money to get more?: Never true Within the past 12 months, did you worry whether your food would run out before you got money to buy more?: Never true Do you have trouble paying for medicines?: No Do you have trouble getting transportation to medical appointments?: No Do you have trouble paying your heating and electricity bill?: No Do you have trouble taking care of your child, family member or friend?: No Do you have trouble with day-to-day activities such as bathing, preparing meals, shopping, managing finances, etc.?: No Are you currently unemployed and looking for a job?: No Are you interested in more education?: No Please select the resources that you would like help with: None Currently or been in a relationship where the following occur: no concerns reported THRIVE Score: 0 AUDIT C Alcohol Use Questionnaire (AUDIT-C) 1. How often do you have a drink containing alcohol?: Never Total Score: 0 VIRGILIO-7 AMB Questionnaire VIRGILIO-7 Date VIRGILIO - 7 assessed: 08/14/23 Feeling nervous, anxious, or on edge: 1 = Several days Not being able to stop or control worryin = Not at all Worrying too much about different things: 1 = Several days Trouble relaxin = Several days Being so restless that it is hard to sit still: 0 = Not at all Becoming easily annoyed or irritable: 3 = Nearly every day Feeling afraid as if something awful might happen: 0 = Not at all Total VIRGILIO-7 score (0-4 normal; 5-9 mild; 10-14 moderate; 15-21 severe): 6 Source: Developed by Drs. Sp Vieyra, Sussy Fernandez, Erik Leung and colleagues, with an educational kanu from [employer]. VIRGILIO-7 Assessment Billing VIRGILIO-7 Assessment Tool: VIRGILIO-7 Assessment 78701 Review of Systems Const All systems reviewed & are unremarkable except as noted in HPI and below Eyes Reports no additional complaints, Denies change in vision and Denies other visual disturbances Card Denies chest pain at rest, Denies chest pain with activity, Denies edema, Denies irregular heart rhythm, Denies claudication, Denies dyspnea, Denies dyspnea on exertion, Denies orthopnea, Denies paroxysmal nocturnal dyspnea and Denies slow heart rate Resp Denies cough, Denies dyspnea and Denies dyspnea on exertion GI Denies abdominal pain, Denies change in bowel habits, Denies excessive flatus, Denies nausea and Denies vomiting Denies urinary incontinence, Denies urinary hesitancy and Denies urinary urgency Musc Denies abnormal gait, Denies atrophy, Denies deformity and Denies limited range of motion Skin/Breast Denies bleeding lesions, Denies changing lesions and Denies rash Neuro Denies abnormal gait and Denies lack of coordination Physical exam (Primary Care) Vital Signs: Last Vital Signs BP 108/52 L 08/14/23 14:10 BMI result Body Mass Index 27.4 Tobacco/Smoking Status: Tobacco use Status Tobacco use date assessed 08/14/23 08/14/23 14:17 Patient Tobacco Use Status Never used Tobacco 08/14/23 14:17 e-Cigarette/Vaping Use Never Used 08/14/23 14:17 PHQ-9: PHQ-9 Score PHQ-9: Total score 7 08/14/23 14:34 Depression Screening Interpretation: Positive Depression Screening Follow-up: Existing condition and In treatment Thrive Assessment: Date of Thrive Assessment Date Thrive assessed 08/14/23 08/14/23 14:17 Currently or been in a relationship where the following occur: no concerns reported Eyes General: appearance normal, both eyes and all related structures Eyelids: Yes eyelids normal Conjunctivae: conjunctivae normal Neck Neck: Yes normal visual inspection and Yes supple Resp Effort & Inspection: normal respiratory effort Auscultation: clear to auscultation bilaterally Cardio Jugular venous distension: no JVD Rate: regular rate Rhythm: regular rhythm Heart sounds: S1 normal heart sound present and S2 normal heart sound present Extrem General: Yes full ROM Assessment and Plan Assessment & Plan (1) Mild recurrent major depression: Code(s): F33.0 - Major depressive disorder, recurrent, mild Plan: Continue SSRI. (2) Pulmonary hypertension: Code(s): I27.20 - Pulmonary hypertension, unspecified Plan: Continue sildenafil. (3) Undifferentiated connective tissue disease: Code(s): M35.9 - Systemic involvement of connective tissue, unspecified Plan: Continue hydroxychloroquine. (4) Hypothyroidism: Code(s): E03.9 - Hypothyroidism, unspecified Plan: Decrease levothyroxine to 100 mcg. Repeat TSH in 6 weeks. (5) Dyslipidemia: Code(s): E78.5 - Hyperlipidemia, unspecified Plan: Continue statins. Orders: Orders Thyroid Stimulating Hormone 6 Weeks E03.9 - Hypothyroidism, unspecified Medications: New levothyroxine 100 mcg PO DAILY 90 days 90 tabs 1RF Discontinued levothyroxine Discontinued Reason: No Longer Medically Relevant 112 mcg PO DAILY 90 days 90 tabs 1RF Coding Level of Care Code Est Pt Level 4 (21863) Diagnoses Mild recurrent major depression F33.0 Pulmonary hypertension I27.20 Undifferentiated connective tissue disease M35.9 Hypothyroidism E03.9 Dyslipidemia E78.5 Additional Codes VIRGILIO-7 Assessment Billing - VIRGILIO-7 Assessment Tool: VIRGILIO-7 Assessment [id number] ([id number]) Time Spent (min) 23
== END 2023-08-14 14:37 | disposition home or self-care (01) ==
PROVIDERS: PCP Internal Medicine; Visit Provider Internal Medicine
DX: E03.9 Hypothyroidism, unspecified (principal); F33.0 Major depressive disorder, recurrent, mild; I27.20 Pulmonary hypertension, unspecified; M35.9 Systemic involvement of connective tissue, unspecified; E78.5 Hyperlipidemia, unspecified
CPT/HCPCS: 99214

== ENCOUNTER 2023-12-13 09:56 | Outpatient (REF) | payer OTHER, SELFPAY ==
--- NOTE | ~2023-12-13 | US_ITS ---
EXAMINATION: US RETROPERITONEAL LIMITED (RENAL ONLY) CLINICAL INFORMATION: Calculus of kidney. COMPARISON: Renal ultrasound 12/19/2022. CT abdomen and pelvis 06/21/2014. TECHNIQUE: Real-time imaging of the kidneys. FINDINGS: RIGHT KIDNEY: 11.1 x 3.7 x 4.2 cm (SAG x AP x TRV). The kidney is normal in size, contour, and echogenicity. Renal cortical thickness is normal. No focal parenchymal lesions or hydronephrosis. 2 mm nonobstructing upper pole renal stone from prior. LEFT KIDNEY: 10.3 x 4.1 x 3.6 cm (SAG x AP x TRV). The kidney is normal in size, contour, and echogenicity. Renal cortical thickness is normal. No focal parenchymal lesions or hydronephrosis. 6 mm nonobstructing mid pole renal stone, previously 4 mm. A few of the other echogenic foci without twinkle artifact or shadow may reflect vascular reflectors. US/US renal BI IMPRESSION: 1. Bilateral nonobstructing renal stones measuring up to 6 mm on the left, as detailed above.
== END 2023-12-13 09:57 | disposition home or self-care (01) ==
LOC: HO.US 09:56
PROVIDERS: PCP Internal Medicine; Visit Provider Urology
DX: N20.0 Calculus of kidney (principal); N39.0 Urinary tract infection, site not specified
CPT/HCPCS: 76775

== ENCOUNTER 2023-12-20 09:57 | Outpatient (REF) | payer OTHER, SELFPAY | END 2023-12-20 09:58 | disposition home or self-care (01) | LOC: HO.MAMMO 09:57 | PROVIDERS: PCP Internal Medicine; Visit Provider Internal Medicine | DX: Z12.31 Encounter for screening mammogram for malignant neoplasm of breast (principal) | CPT/HCPCS: 77063; 77067 ==

== ENCOUNTER → 2023-12-20 10:45 | Outpatient (BNV) | payer OTHER, SELFPAY | PROVIDERS: PCP Internal Medicine; Visit Provider Radiology Diagnostic Radiology | DX: Z12.31 Encounter for screening mammogram for malignant neoplasm of breast (principal) | CPT/HCPCS: 77063; 77067 ==

== ENCOUNTER 2024-03-27 11:08 | Outpatient (REF) | payer OTHER, SELFPAY | END 2024-03-27 11:09 | disposition home or self-care (01) | LOC: HO.LNP 11:08 | PROVIDERS: PCP Internal Medicine; Visit Provider Urology | DX: N39.0 Urinary tract infection, site not specified (principal); N30.20 Other chronic cystitis without hematuria; N20.0 Calculus of kidney; Z13.9 Encounter for screening, unspecified | CPT/HCPCS: 81003; 87086; 99212 ==

== ENCOUNTER 2024-03-27 11:08 | Outpatient (AMB) | payer OTHER, SELFPAY ==
--- NOTE | 2024-03-27 08:06 | MHC.OFFVIS ---
Intake Visit Reasons: 6m/US Intake Note: Patient is present for 6M/US Urology Medication:NA Antibiotic Allergy:LEVOFLOXACIN Blood Thinner:NONE Process Control Programmer Required: No Allergies potassium chloride [Potassium Chloride] Allergy (Severe, Verified 08/14/23 14:28) SWELLING aspirin Allergy (Intermediate, Verified 08/14/23 14:28) bleeding morphine [MORPHINE] Allergy (Intermediate, Verified 08/14/23 14:28) HALLUCINATIONS levofloxacin [From Levaquin] Adverse Reaction (Mild, Verified 08/14/23 14:28) SEVERE DIARRHEA ranitidine [From Zantac] Adverse Reaction (Mild, Verified 08/14/23 14:28) CONFUSION HPI Comments Details: 03/27/24--Isela is here with her daughter follow-up nephrolithiasis and history of recurrent UTIs. I have reviewed last renal ultrasound 12/13/2023- left kidney stone 6 mm compared to previous 4 mm, and new right kidney stone 2 mm. Discussed treatment options to include ESWL. Discussed metabolic workup--24 hour urine collection. Follow-up with CT stone protocol prior. Send surveillance urine culture. Review of chart: 07/12/23--Isela is a 72-year-old female who presents today to the office for follow up.The patient is here with her daughter, she is followed for recurrent UTIs and left kidney stone 4 mm. She denies dysuria. 01/12/2023?She was last seen by me on 12/06/2022 for recurrent urinary tract infections. Cystoscopy was discussed to be scheduled at that time. Urine was sent for Microgen testing and renal US was ordered at that time. I have reviewed the results of renal US from 12/19/2022 revealed nonobstructive 0.4 cm calculus in the midpole of the left kidney. She denies any recurrent urinary symptoms at this time. She is allergic to penicillin. I have reviewed the Microgen testing results which came back prevotella bacteria in urine and sensitive to Levaquin, pateint was not treated for this results. Cystoscopy findings revealed bladder wall thickening, erythematous changes consistent with cystitis. 12/06/22--The patient presents with her granddaughter who interprets for her.? She was seen in the emergency on 11/10/22. At that time urine culture was done. The patient had her first UTI episode in the month of September 2022 and since then she had four rounds of antibiotic therapy.? The patient denies dysuria and urinary symptoms, urgency or urinary incontinence currently. Urine culture results reviewed--11/22/22-- > 100,000 cfu/ml? Mixed bacterial tisha.? Evaluation today UA: leukocytes-- 3+, blood-- 2+, nitrite-- negative. PVR: 46 mL. Plan: Cystoscopy discussed to be scheduled. Urine sent for MicroGen testing. Renal US was ordered. [facility] Medical History Mild recurrent major depression Memory loss Moderate asthma GERD (gastroesophageal reflux disease) Hypothyroidism Dyslipidemia Physical exam Pulmonary hypertension Undifferentiated connective tissue disease Surgical History History of hysterectomy History of hernia surgery History of Family History Father No problems noted. Mother No problems noted. Social History Housing: Apartment Alcohol intake: never Patient Tobacco Use Status: Never used Tobacco e-Cigarette/Vaping Use: Never Used Second Hand Smoke Exposure: Yes service: No Current occupational status: disabled Cognitive needs: No Hearing needs: No Vision needs: Yes Review of Systems Const All systems reviewed & are unremarkable except as noted in HPI and below Reports no additional complaints Eyes Reports no additional complaints ENT Reports no additional complaints Card Reports no additional complaints Resp Reports no additional complaints GI Reports no additional complaints Reports as per HPI Musc Reports no additional complaints Skin/Breast Reports system reviewed and no additional complaints, except as documented Neuro Reports no additional complaints Psych Reports no additional complaints Endo Reports no additional complaints Jayme/Lymph Reports no additional complaints Aller/Immun Reports no additional complaints Results AMB Urinalysis, Automated UA Leukoctes 70 Mar/uL Last Edit by CINDY Damian on 03/27/24 11:39 UA Nitrite Negative Last Edit by CINDY Damian on 03/27/24 11:39 UA Urobilinogen 0.2 mg/dL Last Edit by CINDY Damian on 03/27/24 11:39 UA Protein 30 mg/dL Last Edit by CINDY Damian on 03/27/24 11:39 UA pH 6.5 Last Edit by CINDY Damian on 03/27/24 11:39 UA Blood 25 Kody/uL Last Edit by CINDY Damian on 03/27/24 11:39 UA Specific [place] 1.025 Last Edit by CINDY Damian on 03/27/24 11:39 UA Ketone Negative Last Edit by CINDY Damian on 03/27/24 11:39 UA Bilirubin 1 mg/dL Last Edit by CINDY Damian on 03/27/24 11:39 UA Glucose 0 mg/dL Last Edit by CINDY Damian on 03/27/24 11:39 Results Reviewed Results Reviewed: Laboratory Last Values Urine pH (Auto) 6.5 03/27/24 11:38 Specific [place] (Auto) 1.025 03/27/24 11:38 Urine Protein (Auto) 30 mg/dL 03/27/24 11:38 Glucose (UA)(Auto) 0 mg/dL 03/27/24 11:38 Urine Ketones (Auto) Negative 03/27/24 11:38 Urine Blood (Auto) 25 Kody/uL 03/27/24 11:38 Urine Nitrite (Auto) Negative 03/27/24 11:38 Urine Bilirubin (Auto) 1 mg/dL 03/27/24 11:38 Urine Urobilinogen (Auto) 0.2 mg/dL 03/27/24 11:38 Leukocyte Esterase (Auto) 70 Mar/uL 03/27/24 11:38 Date of Service: 12/13/23 US RETROPERITONEAL LIMITED (RENAL ONLY) CLINICAL INFORMATION: Calculus of kidney. COMPARISON: Renal ultrasound 12/19/2022. CT abdomen and pelvis 06/21/2014. TECHNIQUE: Real-time imaging of the kidneys. FINDINGS: RIGHT KIDNEY: 11.1 x 3.7 x 4.2 cm (SAG x AP x TRV). The kidney is normal in size, contour, and echogenicity. Renal cortical thickness is normal. No focal parenchymal lesions or hydronephrosis. 2 mm nonobstructing upper pole renal stone from prior. LEFT KIDNEY: 10.3 x 4.1 x 3.6 cm (SAG x AP x TRV). The kidney is normal in size, contour, and echogenicity. Renal cortical thickness is normal. No focal parenchymal lesions or hydronephrosis. 6 mm nonobstructing mid pole renal stone, previously 4 mm. A few of the other echogenic foci without twinkle artifact or shadow may reflect vascular reflectors. IMPRESSION: 1. Bilateral nonobstructing renal stones measuring up to 6 mm on the left, as detailed above. Date of Service: 12/19/22 EXAMINATION: US RETROPERITONEAL LIMITED (RENAL ONLY) CLINICAL INFORMATION: Urinary tract infection, site not specified. COMPARISON: CT chest, abdomen and pelvis with contrast 06/21/2014. MRI abdomen without contrast 03/25/2013. Ultrasound abdomen limited 10/26/2012. Ultrasound abdomen complete 10/10/2012. TECHNIQUE: Real-time imaging of the kidneys. FINDINGS: RIGHT KIDNEY: 10.4 x 4.6 x 4.7 cm (SAG x AP x TRV). The kidney is normal in size, contour, and echogenicity. Renal cortical thickness is normal. No calculi or focal parenchymal lesions. No hydronephrosis. LEFT KIDNEY: 10.3 x 4.8 x 4.2 cm (SAG x AP x TRV). The kidney is normal in size, contour, and echogenicity. Renal cortical thickness is normal. No focal parenchymal lesions or hydronephrosis. There is a 0.4 cm nonobstructive calculus in the midpole. IMPRESSION: Nonobstructive 0.4 cm calculus in the midpole of the left kidney. Assessment & Plan Assessment & Plan (1) Recurrent UTI: Code(s): N39.0 - Urinary tract infection, site not specified Category: Medical (2) Chronic cystitis: Code(s): N30.20 - Other chronic cystitis without hematuria Category: Medical (3) Bilateral kidney stones: Code(s): N20.0 - Calculus of kidney Category: Medical Plan renal ultrasound 12/13/2023- left kidney stone 6 mm compared to previous 4 mm, and new right kidney stone 2 mm. Discussed treatment options to include ESWL. Discussed metabolic workup--24 hour urine collection. Follow-up with CT stone protocol prior. Send surveillance urine culture. Orders: Orders Urine Culture Today N39.0 - Urinary tract infection, site not specified CT abdomen pelvis wo IV con Today N20.0 - Calculus of kidney AMB Urinalysis Automated Today Z13.9 - Encounter for screening, unspecified Patient Instructions: The patient had an opportunity to ask questions regarding treatment plan. The patient expressed understanding and agreement with the above treatment plan. The patient is aware they should contact our office by phone for worsening of their current condition or the appearance of new symptoms. Compliance is encouraged with any medications and followup testing that is ordered. It is a privilege to be allowed the opportunity to participate in the urologic care of your patient. If you have any questions or concerns regarding treatment for the above conditions please do not hesitate to contact me. The office telephone contact is [phone]. This note is constructed in part using voice recognition software. While every effort has been made to ensure accuracy special effects technician errors may have been included. Yours sincerely, Brian Shankar MD Coding Level of Care Code Est Pt Level 4 (30365) Diagnoses Recurrent UTI N39.0 Chronic cystitis N30.20 Bilateral kidney stones N20.0
== END 2024-03-27 12:09 | disposition home or self-care (01) ==
LOC: HO.HUSH 11:09
PROVIDERS: PCP Internal Medicine; Visit Provider Urology
DX: N39.0 Urinary tract infection, site not specified (principal); N30.20 Other chronic cystitis without hematuria; N20.0 Calculus of kidney; Z13.9 Encounter for screening, unspecified
CPT/HCPCS: 99214

== ENCOUNTER 2024-05-06 16:31 | Outpatient (AMB) | payer OTHER, SELFPAY ==
[2024-05-06 16:44] VITALS: BP 112/70; BMI 27.5
--- NOTE | 2024-05-06 16:44 | A.OFFPC_ITS ---
Vital Signs 05/06/24 16:44 Height 5 ft 2 in Weight 150 lb 3.274 oz BMI 27.5 BP 112/70 Blood Pressure Location Lt brachial Position Sitting Intake Visit Reasons: follow up Intake Note: Patient here for a follow up, c/o loss of appetite In Home Sales Consultant Required: No Accompanied by: Self / Same As Patient Allergies potassium chloride [Potassium Chloride] Allergy (Severe, Verified 05/06/24 17:12) SWELLING aspirin Allergy (Intermediate, Verified 05/06/24 17:12) bleeding morphine [MORPHINE] Allergy (Intermediate, Verified 05/06/24 17:12) HALLUCINATIONS levofloxacin [From Levaquin] Adverse Reaction (Mild, Verified 05/06/24 17:12) SEVERE DIARRHEA ranitidine [From Zantac] Adverse Reaction (Mild, Verified 05/06/24 17:12) CONFUSION Medication List - Last Reconciled 05/06/24 by Eileen Phillips MD albuterol sulfate 2.5 mg (3 mL) inhalation TID PRN atorvastatin 10 mg PO DAILY calcium carbonate-vitamin D3 600 mg-10 mcg (400 unit) 1 tab PO DAILY citalopram (Celexa) 20 mg PO DAILY clopidogrel 75 mg PO DAILY donepezil 0 mg PO fluticasone propion-salmeterol 500-50 mcg/dose (Wixela Inhub) 1 ea PO BID folic acid 1 mg PO DAILY food supplemt, lactose-reduced (Boost) 1 ea PO BID 24 days hydroxychloroquine 400 mg (2 x 200 mg) PO DAILY levothyroxine 100 mcg PO DAILY 90 days meclizine 12.5 mg PO TID PRN memantine mg PO pantoprazole 40 mg PO DAILY sildenafil (pulm.hypertension) 20 mg PO TID sucralfate (Carafate) 1 g PO BID tiotropium bromide 1.25 mcg/actuation (Spiriva Respimat) 2 puffs inhalation DAILY Tobacco use date assessed: 08/14/23 Fall risk assessment: No Falls in past year Last assessed Fall Risk: 05/06/24 Dental Screening Dental Screen Date: 08/14/23 HPI HPI Comments History of Present Illness Details The patient is a 73-year-old female presenting with an annual physical examination. She has a history of undifferentiated connective tissue disease, which is managed by her contact worker lithography at [facility]. She has previously experienced symptoms such as metacarpal fusion associated with this condition. The patient has essential hypertension and is prescribed sildenafil for pulmonary hypertension. Her hyperlipidemia is managed with atorvastatin. She also has a history of hypothyroidism, for which she is taking levothyroxine. Depression and anxiety are being managed with an increased dose of citalopram, prescribed by her neurologist, which has been adjusted from 20 mg to 40 mg. The patient reports chronic vertigo managed with meclizine and a history of gastroesophageal reflux disease treated with pantoprazole. She has undergone a hysterectomy, section, and hernia repair. During the visit, there was discussion regarding her last colonoscopy, which was performed approximately eight years ago with normal results. There were no current specific symptoms related to cardiovascular or respiratory systems as per her report. - Mammogram performed with normal result s. - Last colonoscopy was approximately 8 y ears ago, results normal. - Received tetanus vaccine in 2019. - Regular influenza vaccination received at a local pharmacy. - Pneumonia vaccination status confirmed up to date. - Recommendations for fasting labs to re check cholesterol levels. - Thyroid function to be re-evaluated du e to previously noted low levels. - Cervical cancer screening not indicate d due to history of hysterectomy and age over 65. [facility] Medical History Mild recurrent major depression Memory loss Moderate asthma GERD (gastroesophageal reflux disease) Hypothyroidism Dyslipidemia Physical exam Pulmonary hypertension Undifferentiated connective tissue disease Surgical History History of hysterectomy History of hernia surgery History of Family History Father No problems noted. Mother No problems noted. Social History Housing: Apartment Alcohol intake: never Patient Tobacco Use Status: Never used Tobacco e-Cigarette/Vaping Use: Never Used Second Hand Smoke Exposure: Yes service: No Current occupational status: disabled Cognitive needs: No Hearing needs: No Vision needs: Yes Questionnaire Thrive Questionnaire Date Thrive assessed: 08/14/23 VIRGILIO-7 AMB Questionnaire VIRGILIO-7 Date VIRGILIO - 7 assessed: 08/14/23 Source: Developed by Drs. Sp Vieyra, Sussy Fernandez, Erik Leung and colleagues, with an educational kanu from [employer]. Review of Systems Const Details: - Constitutional: Denies fever or general malaise. - Respiratory: Denies chest pain or dyspnea. - Gastrointestinal: Denies any changes in bowel habits. - Neurological: Reports decreased appetite. - Genitourinary: No reported urinary symptoms. Physical exam (Primary Care) Vital Signs: Last Vital Signs BP 112/70 05/06/24 16:44 BMI result Body Mass Index 27.5 Tobacco/Smoking Status: Tobacco use Status Tobacco use date assessed 08/14/23 05/06/24 16:45 Patient Tobacco Use Status Never used Tobacco 05/06/24 16:45 e-Cigarette/Vaping Use Never Used 05/06/24 16:45 Thrive Assessment: Date of Thrive Assessment Date Thrive assessed 08/14/23 05/06/24 16:45 Const Other: General: Cooperative, healthy appearing, comfortable, no acute distress and well developed Orientation: Patient oriented x3 Limitations: No limitations Head: Normal to inspection Ears: Hearing grossly normal bilaterally Nose: Normal external nose present Face and sinus: Normal facial exam Eyes: Appearance normal, both eyes and all related structures Neck: Normal visual inspection and Yes full ROM Respiratory: Normal respiratory effort and able to speak in complete sentences. Clear to auscultation bilaterally Cardiovascular: Regular rate and rhythm. Normal S1 and S2 GI: Normal to inspection. Soft to palpation and nontender Skin: No rashes or lesions noted Neuro: Patient oriented x3 Extremities: Normal to inspection Coding Level of Care Code Est Pt Level 3 (03665) Est Pt Prev Care >65y(10354) Diagnoses Physical exam Z00.00 Mild recurrent major depression F33.0 Pulmonary hypertension I27.20 Undifferentiated connective tissue disease M35.9 Time Spent (min) 31 Assessment & Plan Assessment & Plan (1) Physical exam: Code(s): Z00.00 - Encounter for general adult medical examination without abnormal findings Category: Medical (2) Mild recurrent major depression: Code(s): F33.0 - Major depressive disorder, recurrent, mild Category: Medical (3) Pulmonary hypertension: Code(s): I27.20 - Pulmonary hypertension, unspecified Category: Medical (4) Undifferentiated connective tissue disease: Code(s): M35.9 - Systemic involvement of connective tissue, unspecified Category: Medical Plan - Undifferentiated Connective Tissue Disease: Continue management with contact worker lithography. No changes to current regimen. - Essential Hypertension & Pulmonary Hypertension: Continue sildenafil and monitor blood pressure regularly. - Hyperlipidemia: Continue atorvastatin, re-evaluate after cholesterol lab results. - Depression with Anxiety: Maintain current dose of citalopram at 40 mg as prescribed by neurologist. - Chronic Vertigo: Continue meclizine for symptom management. - Gastroesophageal Reflux Disease: Continue pantoprazole as currently prescribed. - Hypothyroidism: Monitor thyroid levels with lab work and adjust levothyroxine if necessary. Patient was informed and verbally consented to the use of an ambient scribe for clinic note documentation during this visit. Patient Instructions: - Continue all current medications as prescribed. - Undergo fasting lab work as discussed for cholesterol and thyroid function evaluation. - Maintain regular follow-ups with specialists, including contact worker lithography and neurologist. - Continue to monitor for and report any new symptoms or changes in current condition. - Follow up with me as discussed for ongoing management and any developing concerns.
== END 2024-05-06 17:25 | disposition home or self-care (01) ==
PROVIDERS: PCP Internal Medicine; Visit Provider Internal Medicine
DX: Z00.00 Encounter for general adult medical examination without abnormal findings (principal); F33.0 Major depressive disorder, recurrent, mild; I27.20 Pulmonary hypertension, unspecified; M35.9 Systemic involvement of connective tissue, unspecified

== ENCOUNTER → 2024-05-06 16:31 | Outpatient (BNVA) | payer OTHER, SELFPAY | PROVIDERS: PCP Internal Medicine; Visit Provider Internal Medicine | DX: Z00.00 Encounter for general adult medical examination without abnormal findings (principal); F33.0 Major depressive disorder, recurrent, mild; I27.20 Pulmonary hypertension, unspecified; M35.9 Systemic involvement of connective tissue, unspecified | CPT/HCPCS: 99397 ==

== ENCOUNTER 2024-06-03 08:49 | Outpatient (REF) | payer OTHER, SELFPAY ==
--- NOTE | ~2024-06-03 | CT_ITS ---
CLINICAL HISTORY: N20.0 - Calculus of kidney CT abdomen and pelvis without contrast Comparison: CT - ABD PELV W IV CON ONLY [id number] - 06/21/14 11:37 EST Findings: No consolidation or effusion. Gallbladder is surgically absent. Pneumobilia is present as before. A few small 2-3 mm nonobstructing punctate calcification within the right kidney are present. Solid organs otherwise within normal limits. No bowel obstruction, pneumoperitoneum, or pneumatosis. Moderate hiatal hernia. Anterior abdominopelvic wall repair. Rectus muscles are diastatic. Normal appendix. The bones are intact. IMPRESSION: 1. Nonobstructing right renal calculi. 2. Hiatal hernia. 3. Postsurgical sequelae. This document has been electronically signed by: Shavon Armstrong MD on 06/03/2024 14:34:40
== END 2024-06-03 08:50 | disposition home or self-care (01) ==
LOC: HO.CT 08:49
PROVIDERS: PCP Internal Medicine; Visit Provider Urology
DX: N20.0 Calculus of kidney (principal)
CPT/HCPCS: 74176

== ENCOUNTER → 2024-06-03 08:50 | Outpatient (BNV) | payer OTHER, SELFPAY | PROVIDERS: PCP Internal Medicine; Visit Provider Radiology Diagnostic Radiology | DX: N20.0 Calculus of kidney (principal); K44.9 Diaphragmatic hernia without obstruction or gangrene | CPT/HCPCS: 74176 ==

== ENCOUNTER 2024-06-19 11:16 | Outpatient (AMB) | payer OTHER, SELFPAY ==
--- NOTE | 2024-06-19 11:21 | A.OFFVIS_ITS ---
Intake Visit Reasons: 12w/CT/Litholink (Set) Intake Note: Patient is Present for Follow Up Litholink/CT Results Urology Medication: None Antibiotic Allergies: Levofloxacin, Blood Thinners: Clopidogrel (Plavix) Cooker Sulfite Required: No Water And Fire Technician: Water And Fire Technician Present Accompanied by: Daughter Allergies potassium chloride [Potassium Chloride] Allergy (Severe, Verified 06/19/24 11:36) SWELLING aspirin Allergy (Intermediate, Verified 06/19/24 11:36) bleeding morphine [MORPHINE] Allergy (Intermediate, Verified 06/19/24 11:36) HALLUCINATIONS levofloxacin [From Levaquin] Adverse Reaction (Mild, Verified 06/19/24 11:36) SEVERE DIARRHEA ranitidine [From Zantac] Adverse Reaction (Mild, Verified 06/19/24 11:36) CONFUSION Medication List - Last Reconciled 06/19/24 by Brian Shankar MD albuterol sulfate 2.5 mg (3 mL) inhalation TID PRN atorvastatin 10 mg PO DAILY calcium carbonate-vitamin D3 600 mg-10 mcg (400 unit) 1 tab PO DAILY cholecalciferol (vitamin D3) (Vitamin D3) 10 mcg PO DAILY citalopram (Celexa) 20 mg PO DAILY clopidogrel 75 mg PO DAILY donepezil 0 mg PO fluticasone propion-salmeterol 500-50 mcg/dose (Wixela Inhub) 1 ea PO BID folic acid 1 mg PO DAILY food supplemt, lactose-reduced (Boost) 1 ea PO BID 24 days hydroxychloroquine 400 mg (2 x 200 mg) PO DAILY levothyroxine 100 mcg PO DAILY 90 days meclizine 12.5 mg PO TID PRN memantine mg PO pantoprazole 40 mg PO DAILY pyridoxine (vitamin B6) 100 mg PO DAILY sildenafil (pulm.hypertension) 20 mg PO TID sucralfate (Carafate) 1 g PO BID tiotropium bromide 1.25 mcg/actuation (Spiriva Respimat) 2 puffs inhalation DAILY HPI Comments Details: 06/19/24--Isela is here with here granddaughter. 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 She is asymptomatic. Discussed 24 hour urine results: 04/08/24-- Total volume 1.11 L, Calcium 148 mg; Oxalate 49 mg, Citrate 513 mg, Sodium 134. Instructed on importance of fluid intake. Low oxalate, low sodium diet. Will start Vit B6 100 mg aldo. Monitor kidneys. CTAP--06/03/24--A few small 2-3 mm nonobstructing punctate calcification within the right kidney are present. 03/27/24--Isela is here with her daughter follow-up nephrolithiasis and history of recurrent UTIs. I have reviewed last renal ultrasound 12/13/2023- left kidney stone 6 mm compared to previous 4 mm, and new right kidney stone 2 mm. Discussed treatment options to include ESWL. Discussed metabolic workup--24 hour urine collection. Follow-up with CT stone protocol prior. Send surveillance urine culture. 07/12/23--Isela is a 72-year-old female who presents today to the office for follow up.The patient is here with her daughter, she is followed for recurrent UTIs and left kidney stone 4 mm. She denies dysuria. 01/12/2023?She was last seen by me on 12/06/2022 for recurrent urinary tract infections. Cystoscopy was discussed to be scheduled at that time. Urine was sent for Microgen testing and renal US was ordered at that time. I have reviewed the results of renal US from 12/19/2022 revealed nonobstructive 0.4 cm calculus in the midpole of the left kidney. She denies any recurrent urinary symptoms at this time. She is allergic to penicillin. I have reviewed the Microgen testing results which came back p revotella bacteria in urine and sensitive to Levaquin, pateint was not treated for this results. Cystoscopy findings revealed bladder wall thickening, erythematous changes consistent with cystitis. 12/06/22--The patient presents with her granddaughter who interprets for her.? She was seen in the emergency on 11/10/22. At that time urine culture was done. The patient had her first UTI episode in the month of September 2022 and since then she had four rounds of antibiotic therapy.? The patient denies dysuria and urinary symptoms, urgency or urinary incontinence currently. Urine culture results reviewed--11/22/22-- > 100,000 cfu/ml? Mixed bacterial tisha.? Evaluation today UA: leukocytes-- 3+, blood-- 2+, nitrite-- negative. PVR: 46 mL. Plan: Cystoscopy discussed to be scheduled. Urine sent for MicroGen testing. Renal US was ordered. [facility] Medical History Mild recurrent major depression Memory loss Moderate asthma GERD (gastroesophageal reflux disease) Hypothyroidism Dyslipidemia Physical exam Pulmonary hypertension Undifferentiated connective tissue disease Surgical History History of hysterectomy History of hernia surgery History of Family History Father No problems noted. Mother No problems noted. Social History Housing: Apartment Alcohol intake: never Patient Tobacco Use Status: Never used Tobacco e-Cigarette/Vaping Use: Never Used Second Hand Smoke Exposure: Yes service: No Current occupational status: disabled Cognitive needs: No Hearing needs: No Vision needs: Yes Review of Systems Const All systems reviewed & are unremarkable except as noted in HPI and below Reports no additional complaints Eyes Reports no additional complaints ENT Reports no additional complaints Card Reports no additional complaints Resp Reports no additional complaints GI Reports no additional complaints Reports as per HPI Musc Reports no additional complaints Skin/Breast Reports system reviewed and no additional complaints, except as documented Neuro Reports no additional complaints Psych Reports no additional complaints Endo Reports no additional complaints Jayme/Lymph Reports no additional complaints Aller/Immun Reports no additional complaints Results Reviewed Results Reviewed: Date of Service: 06/03/24 CT abdomen and pelvis without contrast Comparison: CT - ABD PELV W IV CON ONLY [id number] - 06/21/14 11:37 EST Findings: No consolidation or effusion. Gallbladder is surgically absent. Pneumobilia is present as before. A few small 2-3 mm nonobstructing punctate calcification within the right kidney are present. Solid organs otherwise within normal limits. No bowel obstruction, pneumoperitoneum, or pneumatosis. Moderate hiatal hernia. Anterior abdominopelvic wall repair. Rectus muscles are diastatic. Normal appendix. The bones are intact. IMPRESSION: 1. Nonobstructing right renal calculi. 2. Hiatal hernia. 3. Postsurgical sequelae. Date of Service: 12/13/23 US RETROPERITONEAL LIMITED (RENAL ONLY) CLINICAL INFORMATION: Calculus of kidney. COMPARISON: Renal ultrasound 12/19/2022. CT abdomen and pelvis 06/21/2014. TECHNIQUE: Real-time imaging of the kidneys. FINDINGS: RIGHT KIDNEY: 11.1 x 3.7 x 4.2 cm (SAG x AP x TRV). The kidney is normal in size, contour, and echogenicity. Renal cortical thickness is normal. No focal parenchymal lesions or hydronephrosis. 2 mm nonobstructing upper pole renal stone from prior. LEFT KIDNEY: 10.3 x 4.1 x 3.6 cm (SAG x AP x TRV). The kidney is normal in size, contour, and echogenicity. Renal cortical thickness is normal. No focal parenchymal lesions or hydronephrosis. 6 mm nonobstructing mid pole renal stone, previously 4 mm. A few of the other echogenic foci without twinkle artifact or shadow may reflect vascular reflectors. IMPRESSION: 1. Bilateral nonobstructing renal stones measuring up to 6 mm on the left, as detailed above. Date of Service: 12/19/22 EXAMINATION: US RETROPERITONEAL LIMITED (RENAL ONLY) CLINICAL INFORMATION: Urinary tract infection, site not specified. COMPARISON: CT chest, abdomen and pelvis with contrast 06/21/2014. MRI abdomen without contrast 03/25/2013. Ultrasound abdomen limited 10/26/2012. Ultrasound abdomen complete 10/10/2012. TECHNIQUE: Real-time imaging of the kidneys. FINDINGS: RIGHT KIDNEY: 10.4 x 4.6 x 4.7 cm (SAG x AP x TRV). The kidney is normal in size, contour, and echogenicity. Renal cortical thickness is normal. No calculi or focal parenchymal lesions. No hydronephrosis. LEFT KIDNEY: 10.3 x 4.8 x 4.2 cm (SAG x AP x TRV). The kidney is normal in size, contour, and echogenicity. Renal cortical thickness is normal. No focal parenchymal lesions or hydronephrosis. There is a 0.4 cm nonobstructive calculus in the midpole. IMPRESSION: Nonobstructive 0.4 cm calculus in the midpole of the left kidney. Assessment & Plan Assessment & Plan (1) Right renal stone: Code(s): N20.0 - Calculus of kidney Category: Medical (2) Hyperoxaluria: Code(s): R82.992 - Hyperoxaluria Category: Medical Plan Vit b6 100mg daily, fu one year, renal US prior Orders: Orders US renal BI 11 Months N20.0 - Calculus of kidney Medications: New pyridoxine (vitamin B6) 100 mg PO DAILY 90 tabs 3RF Patient Instructions: The patient had an opportunity to ask questions regarding treatment plan. The patient expressed understanding and agreement with the above treatment plan. The patient is aware they should contact our office by phone for worsening of their current condition or the appearance of new symptoms. Compliance is encouraged with any medications and followup testing that is ordered. It is a privilege to be allowed the opportunity to participate in the urologic care of your patient. If you have any questions or concerns regarding treatment for the above conditions please do not hesitate to contact me. The office telephone contact is [phone]. This note is constructed in part using voice recognition software. While every effort has been made to ensure accuracy furniture removalist errors may have been included. Yours sincerely, Brian Shankar MD Coding Level of Care Code Est Pt Level 4 (61115) Diagnoses Right renal stone N20.0 Hyperoxaluria R82.992
== END 2024-06-19 12:06 | disposition home or self-care (01) ==
PROVIDERS: PCP Internal Medicine; Visit Provider Urology
DX: N20.0 Calculus of kidney (principal); R82.992 Hyperoxaluria
CPT/HCPCS: 99214

== ENCOUNTER → 2024-06-19 11:16 | Outpatient (BNVA) | payer OTHER, SELFPAY | PROVIDERS: PCP Internal Medicine; Visit Provider Urology | DX: N20.0 Calculus of kidney (principal); R82.992 Hyperoxaluria | CPT/HCPCS: 99212 ==

== ENCOUNTER 2024-10-22 07:45 | Outpatient (REF) | payer OTHER, SELFPAY ==
[2024-10-22 07:59] LABS: MANUAL DIFF FLAG NO
[2024-10-22 08:43] LABS: Basophils Percent Auto 0.7 % (0-2); Hematocrit 38.5 % (37.0-47.0); Hemoglobin 11.8 g/dl (12.0-16.0); Imm Gran Abs Auto 0.01 X10*3/uL (0.00-0.03); Imm Gran Pct Auto 0.2 % (0.0-0.4); Lymphocytes Absolute Auto 1.2 X10*3/uL (1.2-4.9); Lymphocytes Percent Auto 26.1 % (20-40); Mean Corpuscular HGB Conc 30.6 g/dl (31.0-35.0); Mean Corpuscular Hemoglobin 24.9 pg (27.0-33.0); Mean Corpuscular Volume 81.2 fL (80.0-98.0); Mean Platelet Volume 9.9 fL (9.4-12.3); Monocytes Absolute Auto 0.5 X10*3/uL (0.1-1.2); Monocytes Percent Auto 11.1 % (2-11); Neutrophils Absolute Auto 2.7 x10*3/uL (2.0-8.3); Neutrophils Percent Auto 61.9 % (45-73); Platelet Count 190 X10*3/uL (160-400); Red Blood Count 4.74 X10*6/uL (4.20-5.50); Red Cell Distribution Width 17.1 % (11.0-16.0); White Blood Count 4.4 X10*3/uL (4.8-10.8)
[2024-10-22 09:05] LABS: Cholesterol 121 mg/dL (<200); HDL Cholesterol 66 mg/dL (>40); Iron 29 mcg/dL (30-160); LDL Cholesterol Calculated 42 mg/dL (<100); Percent Iron Saturation 10 % (15-50); Total Iron Binding Capacity 303 mcg/dL (228-428); Triglycerides 69 mg/dL (<150); Unsaturated Iron Binding 274 ug/dL
[2024-10-22 09:27] LABS: Thyroid Stimulating Hormone 2.48 uIU/mL (0.32-4.0); Vitamin D 25-OH Total 64.8 ng/mL (>30)
[2024-10-22 09:39] LABS: Folate 15.6 ng/mL (> or = 4.0); Vitamin B12 > 2000 pg/mL (200-900)
== END 2024-10-22 07:46 | disposition home or self-care (01) ==
LOC: HO.LAB 07:45
PROVIDERS: PCP Internal Medicine; Visit Provider Internal Medicine
DX: D64.9 Anemia, unspecified (principal); E53.8 Deficiency of other specified B group vitamins; E03.9 Hypothyroidism, unspecified; E55.9 Vitamin D deficiency, unspecified; E78.5 Hyperlipidemia, unspecified
CPT/HCPCS: 36415; 80061; 82306; 82607; 82746; 83540; 84443; 85025

== ENCOUNTER 2024-10-27 10:49 | Outpatient (AMB) | payer OTHER, SELFPAY ==
--- NOTE | 2024-10-27 11:02 | A.OFFPC_ITS ---
Vital Signs 10/27/24 11:07 Height 5 ft 2 in Weight 147 lb BMI 26.9 BP 110/64 Blood Pressure Location Lt brachial Position Sitting Pulse 71 Pulse Source Pulse Oximeter Pulse Oximetry (%) 96 Oxygen Delivery Method Room Air Intake Visit Reasons: thyroid Intake Note: Patient here for a follow up thyroid Wire Fence Builder Required: No Accompanied by: Daughter Allergies potassium chloride [Potassium Chloride] Allergy (Severe, Verified 10/27/24 11:18) SWELLING aspirin Allergy (Intermediate, Verified 10/27/24 11:18) bleeding morphine [MORPHINE] Allergy (Intermediate, Verified 10/27/24 11:18) HALLUCINATIONS levofloxacin [From Levaquin] Adverse Reaction (Mild, Verified 10/27/24 11:18) SEVERE DIARRHEA ranitidine [From Zantac] Adverse Reaction (Mild, Verified 10/27/24 11:18) CONFUSION Medication List - Last Reconciled 10/27/24 by Eileen Phillips MD albuterol sulfate 2.5 mg (3 mL) inhalation TID PRN atorvastatin 10 mg PO DAILY calcium carbonate-vitamin D3 600 mg-10 mcg (400 unit) 1 tab PO DAILY cholecalciferol (vitamin D3) (Vitamin D3) 10 mcg PO DAILY citalopram (Celexa) 20 mg PO DAILY clopidogrel 75 mg PO DAILY donepezil 0 mg PO fluticasone propion-salmeterol 500-50 mcg/dose (Wixela Inhub) 1 ea PO BID folic acid 1 mg PO DAILY food supplemt, lactose-reduced (Boost) 1 ea PO BID 24 days hydroxychloroquine 400 mg (2 x 200 mg) PO DAILY levothyroxine 100 mcg PO DAILY 90 days meclizine 12.5 mg PO TID PRN memantine mg PO pantoprazole 40 mg PO DAILY pyridoxine (vitamin B6) 100 mg PO DAILY sildenafil (pulm.hypertension) 20 mg PO TID sucralfate (Carafate) 1 g PO BID tiotropium bromide 1.25 mcg/actuation (Spiriva Respimat) 2 puffs inhalation DAILY Tobacco use date assessed: 10/27/24 Fall risk assessment: No Falls in past year Last assessed Fall Risk: 10/27/24 Dental Screening Dental Screen Date: 10/27/24 Did you have a dental visit in the last 12 months?: Yes Did you have a dental problem in the last 6 months where you did not have access to dental care?: No Was dental information given to patient?: Patient has dentist HPI HPI Comments History of Present Illness Details The patient is a 74-year-old female presenting with a need for follow- up on her various chronic medical conditions, including thyroid management. Her hypothyroidism is stable and controlled with her current medication routine. She continues to manage issues related to nephrolithiasis under urology supervision. The patient is also receiving rheumatologic care for her undifferentiated connective tissue disease and follow-up with a heating and air conditioning mechanic for pulmonary hypertension. Her depression is being managed with citalopram, aligning with a moderate level recorded via PHQ-9 scoring. Hematology labs reveal mild anemia and a low white blood cell count, with iron noted to be slightly low. Her hyperlipidemia treatment with atorvastatin appears effective, as is seen with favorable cholesterol levels. Laboratory analysis reflects high vitamin B12 levels, attributed to her use of multivitamins. However, her vitamin D status and thyroid levels are appropriate. Overall, the patient is reportedly stable on her specified medication regimen. [facility] Medical History Mild recurrent major depression Memory loss Moderate asthma GERD (gastroesophageal reflux disease) Hypothyroidism Dyslipidemia Physical exam Pulmonary hypertension Undifferentiated connective tissue disease Surgical History History of hysterectomy History of hernia surgery History of Family History Father No problems noted. Mother No problems noted. Social History Housing: Apartment Alcohol intake: never Patient Tobacco Use Status: Never used Tobacco e-Cigarette/Vaping Use: Never Used Second Hand Smoke Exposure: Yes service: No Current occupational status: disabled Cognitive needs: No Hearing needs: No Vision needs: Yes Questionnaire PHQ-9 Over the last 2 weeks, how often have you been bothered by any of the following problems? 1. Little interest or pleasure in doing things: nearly every day 2. Feeling down, depressed, or hopeless: more than half the days 3. Trouble falling or staying asleep, or sleeping too much: several days 4. Feeling tired or having little energy: nearly every day 5. Poor appetite or overeating: nearly every day 6. Feeling bad about yourself - or that you are a failure or have let yourself or your family down: not at all 7. Trouble concentrating on things, such as reading the newspaper or watching television: not at all 8. Moving or speaking so slowly that other people could have noticed. Or the opposite - being so fidgety or restless that you have been moving around a lot more than usual: nearly every day 9. Thoughts that you would be better off or of hurting yourself in some way: not at all Total score: 15 Depression Screening Interpretation: Positive (no suicidal thoughts) Depression Screening Follow-up: Existing condition, In treatment and Follow-up Visit Requested Depression Screening Done: Yes [id number] - PHQ-9 Billing: Yes Source: Developed by Drs. Sp Vieyra, Sussy Fernandez, Erik Leung and colleagues, with an educational kanu from [employer]. Thrive Questionnaire Date Thrive assessed: 10/27/24 I am a: Parent/Caregiver What is your living situation today?: I have a steady place to live Within the past 12 months, did the food you bought not last and you didn't have the money to get more?: Never true Within the past 12 months, did you worry whether your food would run out before you got money to buy more?: Never true Do you have trouble paying for medicines?: No Do you have trouble getting transportation to medical appointments?: No Do you have trouble paying your heating and electricity bill?: No Do you have trouble taking care of your child, family member or friend?: No Do you have trouble with day-to-day activities such as bathing, preparing meals, shopping, managing finances, etc.?: Yes Are you currently unemployed and looking for a job?: No Are you interested in more education?: No Please select the resources that you would like help with: None Currently or been in a relationship where the following occur: No concerns reported THRIVE Score: 0 AUDIT C Alcohol Use Questionnaire (AUDIT-C) 1. How often do you have a drink containing alcohol?: Never Total Score: 0 VIRGILIO-7 AMB Questionnaire VIRGILIO-7 Date VIRGILIO - 7 assessed: 10/27/24 Feeling nervous, anxious, or on edge: 1 = Several days Not being able to stop or control worryin = Not at all Worrying too much about different things: 0 = Not at all Trouble relaxin = Not at all Being so restless that it is hard to sit still: 0 = Not at all Becoming easily annoyed or irritable: 0 = Not at all Feeling afraid as if something awful might happen: 0 = Not at all Total VIRGILIO-7 score (0-4 normal; 5-9 mild; 10-14 moderate; 15-21 severe): 1 Source: Developed by Drs. Sp Vieyra, Sussy Fernandez, Erik Leung and colleagues, with an educational kanu from [employer]. VIRGILIO-7 Assessment Billing VIRGILIO-7 Assessment Tool: VIRGILIO-7 Assessment 08772 Review of Systems Const All systems reviewed & are unremarkable except as noted in HPI and below Card Denies chest pain at rest, Denies chest pain with activity, Denies edema, Denies irregular heart rhythm, Denies claudication, Denies dyspnea, Denies dyspnea on exertion, Denies orthopnea, Denies paroxysmal nocturnal dyspnea and Denies slow heart rate Resp Denies cough, Denies dyspnea and Denies dyspnea on exertion GI Denies abdominal pain, Denies change in bowel habits, Denies excessive flatus, Denies nausea and Denies vomiting Denies urinary incontinence, Denies urinary hesitancy and Denies urinary urgency Musc Denies abnormal gait, Denies atrophy, Denies deformity and Denies limited range of motion Skin/Breast Denies bleeding lesions, Denies changing lesions and Denies rash Neuro Denies abnormal gait, Denies behavioral changes and Denies lack of coordination Psych Denies behavioral changes Physical exam (Primary Care) Vital Signs: Last Vital Signs Pulse 71 10/27/24 11:07 BP 110/64 10/27/24 11:07 Pulse Ox 96 10/27/24 11:07 Oxygen Delivery Method Room Air 10/27/24 11:07 BMI result Body Mass Index 26.9 Tobacco/Smoking Status: Tobacco use Status Tobacco use date assessed 10/27/24 10/27/24 11:13 Patient Tobacco Use Status Never used Tobacco 10/27/24 11:05 e-Cigarette/Vaping Use Never Used 10/27/24 11:05 PHQ-9: PHQ-9 Score PHQ-9: Total score 15 10/27/24 11:13 Depression Screening Interpretation: Positive (no suicidal thoughts) Depression Screening Follow-up: Existing condition, In treatment and Follow-up Visit Requested Thrive Assessment: Date of Thrive Assessment Date Thrive assessed 10/27/24 10/27/24 11:05 Currently or been in a relationship where the following occur: No concerns reported Resp Effort & Inspection: normal respiratory effort Auscultation: clear to auscultation bilaterally Cardio Jugular venous distension: no JVD Rate: regular rate Rhythm: regular rhythm Heart sounds: S1 normal heart sound present and S2 normal heart sound present Extrem General: Yes full ROM Coding Level of Care Code Est Pt Level 4 (89289) Complex EM visit Add On G2211 Diagnoses Mild recurrent major depression F33.0 Pulmonary hypertension I27.20 Undifferentiated connective tissue disease M35.9 Hypothyroidism E03.9 GERD (gastroesophageal reflux disease) K21.9 Dyslipidemia E78.5 Additional Codes PHQ-9 - 71756 - PHQ-9 Billing: Yes ([id number]) VIRGILIO-7 Assessment Billing - VIRGILIO-7 Assessment Tool: VIRGILIO-7 Assessment 35954 ([id number]) Time Spent (min) 24 Assessment & Plan Assessment & Plan (1) Mild recurrent major depression: Code(s): F33.0 - Major depressive disorder, recurrent, mild Category: Medical (2) Pulmonary hypertension: Code(s): I27.20 - Pulmonary hypertension, unspecified Category: Medical (3) Undifferentiated connective tissue disease: Code(s): M35.9 - Systemic involvement of connective tissue, unspecified Category: Medical (4) Hypothyroidism: Code(s): E03.9 - Hypothyroidism, unspecified Category: Medical (5) GERD (gastroesophageal reflux disease): Code(s): K21.9 - Gastro-esophageal reflux disease without esophagitis Category: Medical (6) Dyslipidemia: Code(s): E78.5 - Hyperlipidemia, unspecified Category: Medical Plan Thyroid function is stable with current medication; nephrolithiasis is managed by urology. Connective tissue disease under rheumatologic care continues with Plaquenil; pulmonary hypertension monitored by pulmonology. Depression management includes citalopram, with dose considerations discussed. Anemia and low white blood cell count are monitored, with underlying causes evaluated. Hyperlipidemia treatment with atorvastatin is effective. High vitamin is addressed by adjusting multivitamin intake to once a week. Patient was informed and verbally consented to the use of an ambient scribe for clinic note documentation during this visit. I provided the patient with an overview of her conditions and highlighted the current management for each. We discussed the results of recent blood tests, including her high vitamin B12, and agreed on adjusting the frequency of her multivitamin intake. For her depression, I suggested a temporary reduction of citalopram dosage to observe any changes before introducing alternative treatment if needed. Lastly, we emphasized the importance of regular follow-ups with her various specialists for ongoing management of her chronic conditions. Orders: Orders Lipid Panel 6 Months E78.5 - Hyperlipidemia, unspecified Vitamin D 25-OH Total 6 Months E55.9 - Vitamin D deficiency, unspecified Complete Blood Count Auto Diff 6 Months D64.9 - Anemia, unspecified Thyroid Stimulating Hormone 6 Months E03.9 - Hypothyroidism, unspecified Vitamin B12 and Folate 6 Months E53.8 - Deficiency of other specified B group vitamins IRON PROFILE 6 Months D64.9 - Anemia, unspecified Comprehensive [place]. Panel Fast 6 Months K21.9 - Gastro-esophageal reflux disease without esophagitis Medications: New escitalopram oxalate 5 mg PO BEDTIME 90 days 90 tabs 0RF F33.0 - Major depressive disorder, recurrent, mild citalopram 10 mg PO DAILY 7 days 7 tabs 0RF triamcinolone acetonide 0.1% 1 appl topical DAILY 30 days 30 grams 0RF Patient Instructions: - Continue current thyroid medication as prescribed. - Follow up with urology for kidney stones management. - Maintain appointments with rheumatology and pulmonology specialists. - Continue citalopram as directed, with possible dose changes next week; consult if new medication is needed. - Adjust multivitamin intake to once weekly. - Monitor any symptoms related to anemia or low white blood cells. - Follow a healthy diet for overall well-being and manage hyperlipidemia with prescribed statin. - Return to clinic as per schedule or sooner if new symptoms develop.
[2024-10-27 11:07] VITALS: BP 110/64; PULSE 71; O2SAT 96; BMI 26.9
--- OUTSIDE RECORDS SUMMARY | 2024-10-27 12:04 | XMS_ITS | Clinical Summary ---
Author Organization [facility] Address [address] [place] [address] Care Team Providers Care Portal Developer Name Role Phone Salvador Devries MD Primary Care Provider [phone] Surgical History Surgery Date Site/Laterality Comments CHOLECYSTECTOMY PROCEDURE: HISTORICAL CHOLECYSTECTOMY Medical History Medical History Date Comments Obstructive sleep apnea 08/10/2016 DX:Obstr uctive sleep apnea Osteoporosis 06/03/2014 DX:Osteoporosis Pulmonary emphysema (CMS/HCC V24, CMS/HCC V28) 09/20/2016 DX:Pulmonary emphysema (HCC) Pulmonary hypertension (CMS/ HCC V24, CMS/HCC V28) 09/21/2014 DX:Pulmonary hypertension (H CC) Respiratory failure, chronic (CMS/HCC V24, CMS/HCC V28) 08/10/2016 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 supplemental O2 Chronic headaches 06/14/2018 DX:Chronic hea daches; COMMENT: Began after stroke 2014 History of CVA (cerebrovascu lar accident) 06/14/2018 DX:History of CVA (cerebrova scular accident); COMMENT: 2014 Social History Tobacco Use Types Packs/Day Years Used Date Smoking Tobacco: Never Assessed Comments Unknown Sex and Gender Information Value Date Recorded Sex Assigned at Not on file Legal Sex Female 3:00 AM EST Gender Identity Not on file Sexual Orientation Not on file Obstetrics History Plan of Treatment Upcoming Encounters Date Type Department Care Team (Late st Contact Info) Description 03/03/2025 9:45 AM EDT [facility] [address] [place] [id number] Usama Gracia MD [address] [place] [address] Health Maintenance Due Date Last Done Comments Breast Cancer Screening 1950 Pneumococcal Vaccine: 50+ Ye ars (1 of 1 - PCV) 10/03/2001 Zoster Vaccines (1 of 2) 10/03/2001 DTaP,Tdap,and Td Vaccines (2 - Td or Tdap) 05/08/2023 05/08/2013 COVID-19 Vaccine (1 - 2023-2 5 season) 2024 Influenza Vaccine (Season Ended) 2025 RSV Immunization Adult Patie nts (1 - 1-dose 75+ series) 10/03/2026 HIB Vaccines Aged Out No longer eligi ble based on patient's age to complete this topic HPV Vaccines Aged Out No longer eligi ble based on patient's age to complete this topic Hepatitis A Vaccines Aged Out No long er eligible based on patient's age to complete this topic Hepatitis B Vaccines Aged Out No long er eligible based on patient's age to complete this topic IPV Vaccines Aged Out No longer eligi ble based on patient's age to complete this topic MMR Vaccines Aged Out No longer eligi ble based on patient's age to complete this topic Meningococcal ACWY Vaccine Aged Out N o longer eligible based on patient's age to complete this topic Meningococcal B Vaccine Aged Out No l onger eligible based on patient's age to complete this topic RSV Immunization Patients Un carlos 20 months Aged Out No longer eligible b ased on patient's age to complete this topic Varicella Vaccines Aged Out No longer eligible based on patient's age to complete this topic Insurance [facility] [place] [id number] MEDICAID - [place] Care Teams Portal Developer Relationship Specialty Start Date End Date Salvador Devries MD PCP - General Internal Medicine 05/17/18
== END 2024-10-27 11:30 | disposition home or self-care (01) ==
LOC: HO.HMCH 10:53
PROVIDERS: PCP Internal Medicine; Visit Provider Internal Medicine
DX: F33.0 Major depressive disorder, recurrent, mild (principal); I27.20 Pulmonary hypertension, unspecified; M35.9 Systemic involvement of connective tissue, unspecified; E03.9 Hypothyroidism, unspecified; K21.9 Gastro-esophageal reflux disease without esophagitis; E78.5 Hyperlipidemia, unspecified

== ENCOUNTER → 2024-10-27 10:49 | Outpatient (BNVA) | payer OTHER, SELFPAY | PROVIDERS: PCP Internal Medicine; Visit Provider Internal Medicine | DX: F33.0 Major depressive disorder, recurrent, mild (principal); I27.20 Pulmonary hypertension, unspecified; E03.9 Hypothyroidism, unspecified; K21.9 Gastro-esophageal reflux disease without esophagitis; E78.5 Hyperlipidemia, unspecified; M35.9 Systemic involvement of connective tissue, unspecified | CPT/HCPCS: 96127; 99212 ==

== ENCOUNTER 2024-12-02 09:42 | Outpatient (AMB) | payer OTHER, SELFPAY ==
--- NOTE | 2024-12-02 09:46 | A.OFFVIS_ITS ---
Vital Signs 12/02/24 09:46 Height 5 ft 2 in Intake Visit Reasons: 6 months f/u Accompanied by: Grand Child Allergies potassium chloride (Potassium Chloride) Allergy (Severe, Verified 12/02/24 09:53) SWELLING aspirin Allergy (Intermediate, Verified 12/02/24 09:53) bleeding morphine (MORPHINE) Allergy (Intermediate, Verified 12/02/24 09:53) HALLUCINATIONS levofloxacin (From Levaquin) Adverse Reaction (Mild, Verified 12/02/24 09:53) SEVERE DIARRHEA ranitidine (From Zantac) Adverse Reaction (Mild, Verified 12/02/24 09:53) CONFUSION Medication List - Last Reconciled 12/02/24 by Sunshine Hill, YAEL albuterol sulfate 2.5 mg (3 mL) inhalation TID PRN atorvastatin 10 mg PO DAILY calcium carbonate-vitamin D3 600 mg-10 mcg (400 unit) 1 tab PO DAILY cholecalciferol (vitamin D3) (Vitamin D3) 10 mcg PO DAILY citalopram 10 mg PO DAILY 7 days clopidogrel 75 mg PO DAILY donepezil 0 mg PO escitalopram oxalate 5 mg PO BEDTIME 90 days fluticasone propion-salmeterol 500-50 mcg/dose (Wixela Inhub) 1 ea PO BID folic acid 1 mg PO DAILY food supplemt, lactose-reduced (Boost) 1 ea PO BID 24 days gabapentin 300 mg PO TID hydroxychloroquine 400 mg (2 x 200 mg) PO DAILY levothyroxine 100 mcg PO DAILY 90 days meclizine 12.5 mg PO TID PRN memantine mg PO BID pantoprazole 40 mg PO DAILY pyridoxine (vitamin B6) 100 mg PO DAILY sildenafil (pulm.hypertension) 20 mg PO TID sucralfate (Carafate) 1 g PO BID tiotropium bromide 1.25 mcg/actuation (Spiriva Respimat) 2 puffs inhalation DAILY triamcinolone acetonide 0.1% 1 appl topical DAILY 30 days HPI Comments Details: She was here with her granddaughter. She was feeling so-so. Memory was getting worse. Forgetful and repetitive. Medications were being managed by her family now. She would sometimes forget if she took medication and would forget to bathe. She would tell family that she already took medication or bathed and would get agitated if her family told her otherwise. It has gotten worse over the last month. No physical aggression. Energy was still low and she did not want to leave house. She spent most of her time sitting in recliner doing word searches. She also enjoyed looking out the window to the park and watching baseball games in the field. Not walking as much and says her legs feel weak, but no falls. Sleep was okay. Appetite was still not good and she was taking Boost. No significant weight loss. No complaints of headaches or dizziness recently. More forgetful and misplacing things since around 2020. Father may have had dementia. Occasional frontal BEE 1-2/ wk for a short time or all day without triggers. No stroke/ TIA. Takes Tylenol with slight help. Feels dizzy at times. History of lupus, rheumatoid arthritis, COPD, GERD and cholelithiasis. Sits by the window and watches people outside. On 05/18/14 She presented with a headache that came on fairly severe and different than previous headaches mostly on the right side followed by right facial numbness, vertigo, nausea and vomiting and inability to walk. The room was spinning around. She had multiple episodes of vomiting including diarrhea. She complained of no lateralized weakness. No speech problems. She had an initial CT scan which showed some microvascular disease. A subsequent MRI has shown a small acute infarct in the dorsal aspect of the right medulla. It also shows old microvascular changes and lacunar i nfarcts especially in the left hemisphere deep white matter. CT 06/21/14 was normal. [facility] Medical History (Updated 12/02/24 @ 10:12 by Sunshine Hill CNP) COPD (chronic obstructive pulmonary disease) Rheumatoid arthritis Lupus (systemic lupus erythematosus) Alzheimer's disease Depression Tension headache MCI (mild cognitive impairment) with memory loss Headache Dizziness Stroke Mild recurrent major depression Memory loss Moderate asthma GERD (gastroesophageal reflux disease) Hypothyroidism Dyslipidemia Physical exam Pulmonary hypertension Undifferentiated connective tissue disease Surgical History History of hysterectomy History of hernia surgery History of Family History Father No problems noted. Mother No problems noted. Social History Housing: Apartment Alcohol intake: never Patient Tobacco Use Status: Never used Tobacco e-Cigarette/Vaping Use: Never Used Second Hand Smoke Exposure: Yes service: No Current occupational status: disabled Cognitive needs: No Hearing needs: No Vision needs: Yes Review of Systems Const Denies chills, Denies daytime sleepiness, Denies difficulty sleeping, Reports fatigue, Denies fever(s), Denies frequent falls, Reports headache(s) (chronic), Denies increased appetite, Reports poor appetite, Denies snoring, Denies weakness, Denies weight gain and Denies weight loss Eyes Denies loss of vision ENT Denies vertigo, Denies dizziness, Reports headache(s) (chronic) and Denies neck pain Card Denies chest pain at rest, Denies chest pain with activity, Denies syncope, Denies leg edema, Denies palpitations, Denies dyspnea and Denies dyspnea on exertion Resp Denies cough, Denies dyspnea, Denies dyspnea on exertion and Denies snoring GI Denies abdominal pain, Denies constipation, Denies heartburn, Denies diarrhea and Denies nausea Denies urinary frequency, Denies urinary incontinence and Denies urinary urgency Musc Reports abnormal gait (balance difficulty), Denies back pain, Denies myalgias, Denies arthralgias, Denies neck pain, Reports numbness, Denies stiffness and Reports tingling Neuro Reports abnormal gait (balance difficulty), Denies vertigo, Denies dizziness, Denies syncope, Denies frequent falls, Reports headache(s) (chronic), Denies lack of coordination, Denies loss of vision, Reports memory loss, Reports numbness, Denies Other visual disturbances, Denies restless legs, Denies seizure-like activity, Reports tingling, Denies paresthesias, Denies tremor(s) and Denies weakness Psych Denies anxiety, Reports depression, Reports memory loss, Denies visual hallucinations and Denies hallucinations Endo Reports fatigue and Denies palpitations Physical Exam Const Other: General Appearance:? normal, in no acute distress. Heart:? S1, S2 normal, no murmurs. Lungs:? clear anteriorly and posteriorly. Musculoskeletal:? normal. Extremities:? no edema. Psych:? alert, as below Neuro Other: Abnormal Neurological Findings:?Right facial numbness to touch and pinprick. Mild truncal ataxia. Flat affect. MMSE 16/30 Mental Status: alert, as below Cranial Nerves: Pupils are equal, round, and reactive to light. External ocular muscles are intact. Visual layne are full, no ptosis. Face is symmetrical, no facial weakness or droop. Facial sensations are normal. Tongue protrudes in midline. Palate elevates symmetrically. Shoulder shrugging is normal Motor Examination: Normal muscle tone, bulk and strength. No atrophy or fasciculations. No drift of the extended upper extremities. DTR 2+. Plantars are flexor. Straight Leg Raisin degrees. Sensory Exam: Normal light touch, temperature, pinprick, vibration, and joint- position sensations. Rhomberg sign is absent. Coordination: No ataxia. No titubation. [id number], jirg-[id number]-pxqm test, and rapid alternating movements were normal. Gait Exam: Slight truncal ataxia Cerebellar Signs: [id number] and ecuk-of-nksy is normal. No dysdiadochokinesia. Extrapyramidal System: No tremor, rigidity with normal facial expressions. No bradykinesia. No bradyphrenia. Normal arm swing and posture. No propulsion or retropulsion. Speech: Normal. No dysphasia or dysarthria. MMSE Level of Consciousness: Alert. Orientation: Does not know correct year, month, date, day, and season. Knows correct city, county and state. Knows correct location. Does not know floor. Registration: Able to register 3 objects. Attention: Serial 7's unable. 6 grade education Recall: Able to recall 0 out of 3 objects Language: Normal spontaneous speech, fluency, repetition, naming, comprehension, reading, and writing. Total Score: 30/30. Assessment & Plan Assessment & Plan (1) Alzheimer's disease: Code(s): G30.9 - Alzheimer's disease, unspecified; F02.80 - Dementia in other diseases classified elsewhere, unspecified severity, without behavioral disturbance, psychotic disturbance, mood disturbance, and anxiety Category: Medical Plan: Start quetiapine 25mg 1/2 - 1 tablet as needed for agitation Refilled donepezil 10mg 1 tablet at bedtime Refilled memantine 10mg 1 tablet twice a day They were educated on this condition and its progression. Encouraged physical and social activity. (2) Stroke: Code(s): I63.9 - Cerebral infarction, unspecified Category: Medical Qualifiers: CVA mechanism: unspecified Qualified Code(s): I63.9 - Cerebral infarction, unspecified Plan: . Plan . Medications: New donepezil 10 mg PO BEDTIME 90 tabs 1RF 90 days memantine 10 mg PO BID 180 tabs 1RF 90 days quetiapine 12.5 - 25 mg (0.5 - 1 x 25 mg) PO DAILY PRN 30 tabs 1RF agitation 30 days Discontinued donepezil Discontinued Reason: Order PO memantine Discontinued Reason: Order PO BID Coding Level of Care Code Est Pt Level 4 (08840) Diagnoses Alzheimer's disease G30.9; F02.80 Cerebrovascular accident (CVA), unspecified mechanism I63.9 CVA mechanism: unspecified
--- OUTSIDE RECORDS SUMMARY | 2024-12-02 10:16 | XMS_ITS | Patient Health Record ---
Author Organization [facility] Address [address] [place] [address] Care Team Providers Care Financial Services Auditor Name Role Phone Darren Ramírez MD, Reina Primary Care Provider Un available Sp Cosby Unavailable [phone] MAXIME MURDOCK Unavailable Unavailable Reason For Referral No Information Plan Of Treatment No Information Insurance Providers Payer Name Payer Address Payer Phone Subscriber Number Group Number Insured Name Patient Relationship to Insured Coverage Start Date Coverage End Date MEDICAID OF [facility] [address] [place] [phone] [id number] GORDON DAVIS Self - patient is the insured
--- OUTSIDE RECORDS SUMMARY | 2024-12-02 10:16 | XMS_ITS ---
Author Name Jaime PEARL MS. Anh Salazar Address [address] [place] [address] Phone [phone] [facility] Care Team Providers Care Zipper Setter Chainstitch Name Role Phone Anh Sandoval Unavailable [phone] Hoa Krueger Unavailable [phone] Unavailable Unavailable Unavailable VETO ABAD Unavailable [phone] [facility] Unavailable [phone] Reason for Referral Not Available Allergies, adverse reactions, alerts Allergen Type Reaction Severity Status Onset Date Potassium Allergy to substance (disorder) Unknown Active N/A Levaquin Allergy to substance (disorder) Unknown Active N/A Morphine Allergy to substance (disorder) Unknown Active N/A Aspirin Allergy to substance (disorder) Unknown Active N/A Ranitidine Allergy to substance (disorder) Unknown Active N/A History of medication use Medication Class Instructions Start Date End Date Atorvastatin Calcium 10 mg Tab TAKE ONE TABLET BY MOUTH EVERY DAY 2021-03-29 No Data Available Citalopram Hydrobromide 40 m g Tab TAKE ONE TABLET BY MOUTH EVERY DAY 2021-03-29 No Data Available Clopidogrel Bisulfate 75 mg Tab TAKE ONE TABLET BY MOUTH EVERY DAY 2021-03-29 2022-03-21 Folic Acid 1 mg Tab TAKE ONE TABLET BY M OUTH EVERY DAY 2021-06-27 No Data Available Hydroxychloroquine Sulfate 2 00 mg Tab TAKE TWO TABLETS BY MOUTH EVERY DAY 2021-05-30 No Data Available Levothyroxine Sodium 112 MCG Tab TAKE ONE TABLET BY MOUTH EVERY DAY 2021-09-24 2022-03-21 Pantoprazole Sodium 40 mg Ta b delayed rel TAKE ONE TABLET BY MOUTH EVERY DAY 2021-06-27 No Data Available Sildenafil Citrate 20 mg Tab TAKE ONE TA BLET BY MOUTH THREE TIMES A DAY 2021-06-27 No Data Available Wixela Inhub 500-50 MCG/ACT Aerosol Powder Breath Activated INHALE ONE PUFF BY MOUTH TWICE A DAY 2021-03-29 No Data Available CALCIUM CARBONATE-NITIN 600-4 00 TABS TAKE ONE TABLET BY MOUTH EVERY DAY NEEDED 2021-03-29 No Data Available Vitamin D3 10 MCG (400 UNIT) Tab TAKE ONE TABLET BY MOUTH EVERY DAY 2021-09-26 No Data Available Albuterol Sulfate HFA 108 (9 0 Base) MCG/ACT Aerosol Solution Inhalation INHALE TWO PUFFS BY MOUTH EVERY 4 TO 6 HOURS NEEDED 2021-10-26 No Data Available Spiriva HandiHaler 18 MCG Cap INHALE THE CONTENTS OF 1 CAPSULE VIA HANDIHALER (USING 2 INHALATIONS) EVERY DAY DIRECTED 2021-10-26 No Data Available Acetaminophen 325 mg Tab TAKE 2 TABLETS BY MOUTH EVERY 4 HOURS NEEDED FOR MILD PAIN 2022-02-23 No Data Available Docusate Sodium 100 mg Cap TAKE 1 CAPSUL E BY MOUTH TWO TIMES A DAY 2022-02-23 2022-04-07 Hydroxychloroquine Sulfate 2 00 mg Tab take 1 tablet by mouth twice daily 2022-03-21 No Data Available Levothyroxine Sodium 112 MCG Tab 1 tablet orally daily in the morning on an empty stomach 2022-03-21 No Data Available Acetaminophen 325 mg Tab Chewable 2 tablets orally every 4 hours as needed 2022-03-21 No Data Available Plavix 75 mg Tab 1 tablet orally daily 2022-03-22 No Data Available Sertraline 100 mg Tab 1 tablet once a day 2022-04-10 2023-06-20 CALCIUM CARB-CHOLECALCI 600- 10 TABS TAKE ONE TABLET BY MOUTH EVERY DAY 2022-03-22 2023-06-20 Nitrofurantoin Monohyd Macro 100 mg Cap TAKE ONE CAPSULE BY MOUTH EVERY 12 HOURS FOR 5 DAYS MUST TAKE WITH A MEAL/FOOD 2022-10-03 No Data Available Donepezil 10 mg Tab 1 tablet daily 2022-10-09 No Dez a Available Cefdinir 300 mg Cap TAKE ONE CAPSULE BY MOUTH TWICE A DAY FOR 7 DAYS 2022-11-10 No Data Available Sulfamethoxazole-Trimethopri m 800/160 mg Tab TAKE ONE TABLET BY MOUTH TWICE A DAY FOR 7 DAYS 2022-11-22 No Data Available Ciprofloxacin 250 mg Tab TAKE ONE TABLET BY MOUTH TWICE A DAY FOR 7 DAYS 2023-01-15 No Data Available FLUoxetine 20 mg Cap TAKE 1 CAPSULE BY M OUTH ONCE DAILY 2023-01-23 2023-06-20 Memantine 10 mg Tab TAKE 1 TABLET BY EMMA TH ONCE DAILY FOR 2 WEEKS, THEN INCREASE TO 1 TABLET TWO TIMES A DAY DIRECTED 2023-01-23 No Data Available Meclizine 12.5 mg Tab TAKE ONE TABLET BY MOUTH THREE TIMES A DAY NEEDED FOR DIZZINESS 2023-02-13 No Data Available Ondansetron 4 mg Tab TAKE ONE TABLET BY MOUTH ONCE A DAY NEEDED FOR NAUSEA FOR 30 DAYS 2023-02-14 No Data Available Cetirizine 10 mg Tab 1 tablet orally daily 2023-09-05 No Data Available Mucinex 600 mg Tab ER 12hr 1 tablets ora lly every 12 hours as needed 2024-03-16 No Data Available Ipratropium Herminie 0.03 % Solution SPRAY 2 SPRAYS IN EACH NOSTRIL 2-3 TIMES A DAY 2023-10-11 No Data Available CALCIUM CARB-CHOLECALCI 600- 10 TABS TAKE ONE TABLET BY MOUTH EVERY DAY 2023-03-04 No Data Available Albuterol Sulfate (2.5 mg/3M L) 0.083% Nebulization Solution Inhalation 3 ml via nebulizer every 4-6 hours as needed for SOB, wheezing 2024-03-17 No Data Available Problem List Problem Status Onset Date Resolved Date Synopsis Immunodeficiency due to conditions classified elsewhere Active 2022-04-07 N/A Lupus & RAW eakened immune system, encourage hand washing, avoid large crowds, stay up to date on vaccines (annual flu), monitor for and report early any s/s of infection Urinary incontinence Active 2022-04-07 N/A Wear s diapers/ pull upsContinues experiencing urinary incontinence.Wears pull-ups. Denies any skin complaints. Hx UTISHad f/u appt with Urologist on 01/12/23. Advised to contact CB 18/12 if any symptoms develop. Primary osteoarthritis involving multiple joints, Gait instability Active 2024-03-17 N/A Member rogelio werner bedside commode secondary to Gait instability, dementia, OA, COPDM15.0, R26.81, F03.AO, J44.963, 130 CKD (chronic kidney disease) stage 2, GFR 60-89 ml/min Inactive 2022-04-07 N/A Most recent GFR found on outside records: EGFR 69 >59 mL/min/1.73m2 from 09/27/22. (previously GFR 54) Avoid nephrotoxic medications (NSAIDS, high dose Gabapentin, Baclofen, Fleet Enema, Morphine/Codeine). Follow up pcp. Closed wedge compression fracture of T8 vertebra, sequela Inactive 2023-06-20 N/A No c/o painFollo w up pcp Vascular diseaseHistory of CVA (cerebrovascular accident) Active 2022-04-07 N/A On PlavixFollows a CardiologistHistory of CVA in 2013. Completed PT. No residual effects. No hemiparesis. History of DVTs years ago Denies any current symptoms.Follow up pcp 06/05/24: Stable. Continue medications as directed. Encouraged diet and weight management. Discussed importance of routine labs and physical exams. Increase physical activities as tolerated. Maintain safety and fall precautions. Follow up with neurologist as indicated. COPD with emphysema Active 2022-04-07 N/A On Al buterolSpirivaWixelahx 02 Follows a PulmonologistUsing:Spiriva HandiHaler 18 MCG Cap INHALE THE CONTENTS OF 1 CAPSULE VIA HANDIHALER (USING 2 INHALATIONS) EVERY DAY DIRECTEDWixela Inhub 500-50 MCG/ACT Aerosol Powder Breath Activated INHALE ONE PUFF BY MOUTH TWICE A DAYAlbuterol Sulfate HFA 108 (90 Base) MCG/ACT Aerosol Solution INHALE TWO PUFFS BY MOUTH EVERY 4 TO 6 HOURS NEEDEDDenies any acute complaint.Continue treatment as prescribed, follow up as instructed.Contact CB 18/12 as needed.03/17/24: Requesting nebulizer as hers is broken, DME task placed.06/05/24: Stable. Continue medications as directed. Encouraged deep breathing and relaxation techniques as needed. Increase physical activities as tolerated. Maintain safety and fall precautions. Follow up with railroad surveyor as indicated. Other problems related to medical facilities and other health care Active 2023-08-02 N/A If you sridevi r take your blood pressure and it is consistently over 170/90 or low 90/50s, have chest pain, shortness of breath, wheezing, fever, or leg swelling call us at [phone]. We are here to help.UTI CONTINGENCY PLANLast updated: 03/17/2024Last ER 02/17 UTIMember to call for the following symptoms: Abdominal pain/ Back pain/ Delirium/ Dysuria/ Fever/ Nausea or vomiting / Urinary frequencyPlanned intervention: Place order for urinalysis and culture; family to take sample to lab/ Encourage increased fluid intake/ Cefpodoxime 100mg BID x5d/ Take Tylenol for pain or fever COPD CONTINGENCY PLANLast updated: 03/17/2024[facility] to call for the following symptoms: Albuterol not working/ Breathing loudly / Change in sputum / Increased cough / WheezingPlanned intervention: Increase use of albuterol inhaler to q2h PRN cough, breathlessness/ Doxycycline 100mg BID x 7 days/ Mucinex 400mg q4h with a full glass of water to thin secretions/ Confirm appropriate inhaler usage/ Prednisone 50mg po daily x 5 days DEMENTIA CONTINGENCY PLANLast updated: 06/05/2024[facility] to call for the following symptoms: Aggression/ Delirium/ FeverPlanned intervention: Place order for urinalysis and culture; family to take sample to lab/ Encourage increased fluid intake/ Ask about last bowel movement/ Assess for UTI symptoms; if present, start Macrobid 100mg BID x5 days/ Trazodone 50mg at bedtime/ Limit extra stimulation. Hyperlipidemia Inactive 2022-04-07 N/A On Atorvas tatinEncouraged physical activityDiet low in saturated and trans fatHealthy diet, including lots of fruits and vegetables.Contact 18/12 as needed.Follow up pcp Lupus; Systemic involvement of connective tissue, unspecified Active 2022-04-07 N/A On Hydroxychloro quineFollows a RheumatologistPer outside care- C3 level : Stable. Continue medications as directed. Encouraged pain management and relaxation techniques as needed. Increase physical activities as tolerated. Maintain safety and fall precautions. Follow up with software test automation engineer as indicated. GERD (gastroesophageal reflux disease) Inactive 2022-04-07 N/A On PantoprazoleA void spicy, fatty or fried food, caffeine, chocolateAvoid lying down after mealsAvoid eating late at nightFollow up pcp Hypothyroidism Inactive 2022-04-07 N/A On Levothy roxineFollow up pcp Monitor for major symptoms include fatigue, cold sensitivity, constipation, dry skin, and unexplained weight gain. Follow up PCP. Pulmonary hypertension, unspecified Active 2022-04-07 N/A On SildenafilFol lows a railroad surveyor Doing well on current treatment.Denies any acute complaint.Continue treatment as prescribed, follow up as instructed.Contact CB 24/ as needed.06/05/24: Stable. Continue medications as directed. Encouraged routine labs and physical exams. Increase physical activities as tolerated. Maintain safety and fall precautions. Follow up with PCP as indicated. Encounter for health-related screening Active 2024-06-05 N/A Cologuajenn task p eliza. Discussed importance of routine labs and preventative health screenings as indicated. Moderate vascular dementia with mood disturbance, Moderate episode of recurrent major depressive disorder Active 2022-04-07 N/A On CelexaFollows up with PCP and Neurologist.Phq2-3Depression tips: Spend time with family and friends, practice mindfulness and meditation, deep breathing, journaling, exercise if able, get outdoors, eat a balanced diet, and get regular sleep. Advised to take medications as prescribed. If you begin to have suicidal or homicidal thoughts discontinue medication and call office or 911. Call provider if adverse effects occur. Follow up with PCP.Follows a Neurologist Daughter reports recent decline in memory. Donepezil 10 mg Tab 1 tablet dailyMemantineContinue treatment as prescribed, follow up as instructed.Contact CB 24/ as needed.06/05/24: PHQ-9 score: 11Worsening symptoms. Continue medications as directed. Encouraged relaxation, reassurance, and redirection techniques as needed. Increase physical activities as tolerated. Maintain safety and fall precautions. Follow up with neurologist as indicated. Encounters Encounters Type Facility Date of Service Diagnosis/Co mplaint Unlisted special service; to be used for medical record reviews and reporting CPTII codes (1111F, etc) [facility] ([place]) [place] Encounter for other specifie d aftercare Unlisted special service; to be used for medical record reviews and reporting CPTII codes (1111F, etc) [facility] ([place] Pain Assessment - NO pain present (1126F) [facility] [place] Pain Assessment - NO pain present (1126F) [facility] [place] Pain Assessment - NO pain present (1126F) [facility] [place] Pain Assessment - NO pain present (1126F) [facility] [place] Pain Assessment - NO pain present (1126F) [facility] [place] Pain Assessment - NO pain present (1126F) [facility] [place] Pain Assessment - NO pain present (1126F) [facility] [place] Pain Assessment - NO pain present (1126F) [facility] [place] Pain Assessment - NO pain present (1126F) [facility] [place] Chronic obstructive pulmonar y disease, unspecifiedHyperlipidemia, unspecifiedUnspecified disorder of circulatory systemSystemic lupus erythematosus, unspecifiedImmunodeficiency due to conditions classified elsewhereGastro-esophageal reflux disease without esophagitisHypothyroidism, unspecifiedUnspecified dementia without behavioral disturbanceMajor depressive disorder, recurrent, mildPulmonary hypertension, unspecifiedUnspecified urinary incontinenceChronic kidney disease, stage 3 unspecified Estab. patient 30-39min; chronic exacerbation, 2 stable chronic or 1 acute illness add add modifier 95 for video, (do not use for phone, instead use [id number]) [facility] [place] Chronic obstructive pulmonar y disease, unspecifiedHyperlipidemia, unspecifiedUnspecified disorder of circulatory systemPrsnl hx of TIA (TIA), and cereb infrc w/o resid deficitsSystemic lupus erythematosus, unspecifiedImmunodeficiency due to conditions classified elsewhereGastro-esophageal reflux disease without esophagitisHypothyroidism, unspecifiedUnspecified dementia, mild, without behavioral disturbance, psychotic disturbance, mood disturbance, and anxietyMajor depressive disorder, recurrent, mildPulmonary hypertension, unspecifiedUnspecified urinary incontinenceChronic kidney disease, stage 2 (mild) Estab. patient 30-39min; chronic exacerbation, 2 stable chronic or 1 acute illness add add modifier 95 for video, (do not use for phone, instead use [id number]) [facility] [place] Estab. patient 30-39min; chronic exacerbation, 2 stable chronic or 1 acute illness add add modifier 95 for video, (do not use for phone, instead use 61845-23) [facility] [place] Estab. patient 30-39min; chronic exacerbation, 2 stable chronic or 1 acute illness add add modifier 95 for video, (do not use for phone, instead use 12461-24) [facility] [place] Estab. patient 30-39min; chronic exacerbation, 2 stable chronic or 1 acute illness add add modifier 95 for video, (do not use for phone, instead use [id number]) [facility] [place] Estab. patient 30-39min; chronic exacerbation, 2 stable chronic or 1 acute illness add add modifier 95 for video, (do not use for phone, instead use 72898-95) [facility] [place] Estab. patient 30-39min; chronic exacerbation, 2 stable chronic or 1 acute illness add add modifier 95 for video, (do not use for phone, instead use 29061-94) [facility] [place] Estab. patient 30-39min; chronic exacerbation, 2 stable chronic or 1 acute illness add add modifier 95 for video, (do not use for phone, instead use [id number]) [facility] [place] Estab. patient 30-39min; chronic exacerbation, 2 stable chronic or 1 acute illness add add modifier 95 for video, (do not use for phone, instead use 64263-03) [facility] [place] Estab. patient 30-39min; chronic exacerbation, 2 stable chronic or 1 acute illness add add modifier 95 for video, (do not use for phone, instead use [id number]) [facility] [place] Estab. patient 30-39min; chronic exacerbation, 2 stable chronic or 1 acute illness add add modifier 95 for video, (do not use for phone, instead use 20309-41) [facility], ([place]) 06/20/2023 Chronic obstructive pulmonar y disease, unspecifiedHyperlipidemia, unspecifiedUnspecified disorder of circulatory systemPrsnl hx of TIA (TIA), and cereb infrc w/o resid deficitsSystemic lupus erythematosus, unspecifiedSystemic involvement of connective tissue, unspecifiedImmunodeficiency due to conditions classified elsewhereGastro-esophageal reflux disease without esophagitisHypothyroidism, unspecifiedUnspecified dementia, mild, without behavioral disturbance, psychotic disturbance, mood disturbance, and anxietyMajor depressive disorder, recurrent, moderateOther secondary pulmonary hypertensionUnspecified urinary incontinenceChronic kidney disease, stage 2 (mild)Wedge compression fracture of T7-t8 vertebra, sequela Estab. patient 30-39min; chronic exacerbation, 2 stable chronic or 1 acute illness add add modifier 95 for video, (do not use for phone, instead use 22714-17) [facility] ([place] 06[place]/20[place] Estab. patient 30-39min; chronic exacerbation, 2 stable chronic or 1 acute illness add add modifier 95 for video, (do not use for phone, instead use [id number]) [facility] ([place] 06[place]/20[place] Estab. patient 30-39min; chronic exacerbation, 2 stable chronic or 1 acute illness add add modifier 95 for video, (do not use for phone, instead use 17659-51) [facility] [place] 06[place]20/2023 Estab. patient 30-39min; chronic exacerbation, 2 stable chronic or 1 acute illness add add modifier 95 for video, (do not use for phone, instead use 83838-88) [facility] [place] 06[place]20/2023 Estab. patient 30-39min; chronic exacerbation, 2 stable chronic or 1 acute illness add add modifier 95 for video, (do not use for phone, instead use [id number]) [facility] [place] 06/20/2023 Estab. patient 30-39min; chronic exacerbation, 2 stable chronic or 1 acute illness add add modifier 95 for video, (do not use for phone, instead use 74436-61) [facility] [place] 06/20/2023 Estab. patient 30-39min; chronic exacerbation, 2 stable chronic or 1 acute illness add add modifier 95 for video, (do not use for phone, instead use 22303-04) [facility] [place] 06/20/2023 Estab. patient 30-39min; chronic exacerbation, 2 stable chronic or 1 acute illness add add modifier 95 for video, (do not use for phone, instead use 23457-77) [facility] [place] 06/20/2023 Estab. patient 30-39min; chronic exacerbation, 2 stable chronic or 1 acute illness add add modifier 95 for video, (do not use for phone, instead use 62521-25) [facility] [place] 06/20/2023 Estab. patient 20-29min; 1 stable chronic or 2 minor; add add modifier 95 for video, modifier 93 for phone [facility] [place] 03/17/2024 Chronic obstructive pulmonar y disease, unspecifiedSystemic lupus erythematosus, unspecifiedSystemic involvement of connective tissue, unspecifiedImmunodeficiency due to conditions classified elsewhereUnspecified dementia, mild, with mood disturbanceMajor depressive disorder, recurrent, moderateOther secondary pulmonary hypertensionOther problems related to medical facilities and other health careHypothyroidism, unspecifiedPrsnl hx of TIA (TIA), and cereb infrc w/o resid deficitsChronic kidney disease, stage 2 (mild)Hyperlipidemia, unspecifiedGastro-esophageal reflux disease without esophagitisWedge compression fracture of T7-t8 vertebra, sequelaUnsteadiness on feetPrimary generalized (osteo)arthritisUnspecified urinary incontinence Estab. patient 20-29min; 1 stable chronic or 2 minor; add add modifier 95 for video, modifier 93 for phone [facility] [place] 03/17/2024 Estab. patient 20-29min; 1 stable chronic or 2 minor; add add modifier 95 for video, modifier 93 for phone [facility] [place] 03/17/2024 Estab. patient 20-29min; 1 stable chronic or 2 minor; add add modifier 95 for video, modifier 93 for phone [facility] [place] 03[place]17/20[place] Estab. patient 30-39min; chronic exacerbation, 2 stable chronic or 1 acute illness add add modifier 95 for video, (do not use for phone, instead use [id number]) [facility] [place] 06/05/2024 Emphysema, unspecifiedSystem ic lupus erythematosus, unspecifiedSystemic involvement of connective tissue, unspecifiedImmunodeficiency due to conditions classified elsewhereVascular dementia, moderate, with mood disturbanceMajor depressive disorder, recurrent, moderatePulmonary hypertension, unspecifiedUnspecified disorder of circulatory systemUnspecified urinary incontinencePrimary generalized (osteo)arthritisUnsteadiness on feetOther problems related to medical facilities and other health carePrsnl hx of TIA (TIA), and cereb infrc w/o resid deficitsEncounter for screening, unspecified Estab. patient 30-39min; chronic exacerbation, 2 stable chronic or 1 acute illness add add modifier 95 for video, (do not use for phone, instead use 08129-98) [facility] [place] Estab. patient 30-39min; chronic exacerbation, 2 stable chronic or 1 acute illness add add modifier 95 for video, (do not use for phone, instead use 96659-94) [facility] [place] 06[place]05/20[place] Estab. patient 30-39min; chronic exacerbation, 2 stable chronic or 1 acute illness add add modifier 95 for video, (do not use for phone, instead use 04203-54) [facility] [place] 06[place]05/20[place] Estab. patient 30-39min; chronic exacerbation, 2 stable chronic or 1 acute illness add add modifier 95 for video, (do not use for phone, instead use 50740-34) [facility] [place] 06/05/20[place] Estab. patient 30-39min; chronic exacerbation, 2 stable chronic or 1 acute illness add add modifier 95 for video, (do not use for phone, instead use 23630-21) [facility] [place] 06/05/20[place] Estab. patient 30-39min; chronic exacerbation, 2 stable chronic or 1 acute illness add add modifier 95 for video, (do not use for phone, instead use 30037-49) [facility] [place] 06/05/20[place] Estab. patient 30-39min; chronic exacerbation, 2 stable chronic or 1 acute illness add add modifier 95 for video, (do not use for phone, instead use 33068-07) [facility] [place] 06/05/20[place] Estab. patient 30-39min; chronic exacerbation, 2 stable chronic or 1 acute illness add add modifier 95 for video, (do not use for phone, instead use 26794-02) [facility] ([place] 06[place]05/20[place] Estab. patient 30-39min; chronic exacerbation, 2 stable chronic or 1 acute illness add add modifier 95 for video, (do not use for phone, instead use [id number]) [facility] ([place] 06/05/2024 Vital Signs Date of Collection Vitals 2022-04-07 07:02:41 Height - 154.94 cmWe ight - 83.46 kgBody Mass Index (BMI) - 34.77 kg/m2BP Diastolic - 60.0 mm[Hg]BP Systolic - 108.0 mm[Hg] 2023-01-04 08:32:35 Height - 160.02 cmWe ight - 72.58 kgBody Mass Index (BMI) - 28.34 kg/m2BP Diastolic - 64.0 mm[Hg]BP Systolic - 110.0 mm[Hg]Pain Scale - 0.0 {score} 2023-06-20 06:27:37 Height - 160.02 cmWe ight - 58.97 kgBody Mass Index (BMI) - 23.03 kg/m2BP Diastolic - 86.0 mm[Hg]BP Systolic - 126.0 mm[Hg]Pain Scale - 0.0 {score} 2024-03-17 07:10:17 Height - 160.02 cmWe ight - 58.97 kgBody Mass Index (BMI) - 23.03 kg/m2 2024-06-05 07:31:03 Height - 152.4 cmWei ght - 67.13 kgBody Mass Index (BMI) - 28.9 kg/m2BP Diastolic - 88.0 mm[Hg]BP Systolic - 132.0 mm[Hg]Pain Scale - 0.0 {score} Social History Social History Social History Observation Description Effec tive Time Current Smoking Status Never smoker 9 Sex Female History of Procedures Procedures Service Procedure code Service date Servicing provider Phone# Unlisted special service; to be used for medical record reviews and reporting CPTII codes (1111F, etc) 11440 2022-03-22 No Data Available No Data Availa ble Medications prescribed in hospital were reviewed and reconciled against what they were taking prior to admission during today's visit. (1111F) 1111F 2022-03-22 No Data Available No Data Availa ble Pain Assessment - NO pain present (1126F) 1126F 2022-04-07 No Data Available No Data A vailable Medication List Documented (1159F) 1159F 2022-04-07 No Data Available No Data Kirsten ilable Medication Review by prescribing provider or pharmacist documented (1160F) 1160F 2022-04-07 No Data Available No Data Kirsten ilable Functional Status Assessed (1170F) 1170F 2022-04-07 No Data Available No Data Avail able Advance Care Directive Advance care planning discussion documented in the medical record (1158F) 1158F 2022-04-07 No Data Available No Data Availa ble BMI obtained (3008F) 3008F 2022-04-07 No Data Availab le No Data Available SBP < 130 (3074F) 3074F 2022-04-07 No Data Available No Data Available DBP <80 (3078F) 3078F 2022-04-07 No Data Available No Data Available New patient, 30-44min 1 stable chronic or 2 minor; add modifier 95 for video, modifier 93 for phone 14301 2022-04-07 No Data Available No Data Available Estab. patient 30-39min; chronic exacerbation, 2 stable chronic or 1 acute illness add add modifier 95 for video, (do not use for phone, instead use [id number]) 74440 2023-01-04 No Data Available No Data Availa ble Medication List Documented (1159F) 1159F 2023-01-04 No Data Available No Data Kirsten ilable Medication Review by prescribing provider or pharmacist documented (1160F) 1160F 2023-01-04 No Data Available No Data Kirsten ilable Pain Assessment - NO pain present (1126F) 1126F 2023-01-04 No Data Available No Data A vailable BMI obtained (3008F) 3008F 2023-01-04 No Data Availab le No Data Available Advance Care Directive Advance care planning discussion documented in the medical record (1158F) 1158F 2023-01-04 No Data Available No Data Availa ble Advance care planning discussed and documented advance care plan or surrogate decision-maker was documented in the medical record. (1123F) 1123F 2023-01-04 No Data Available No Data Availa ble SBP < 130 (3074F) 3074F 2023-01-04 No Data Available No Data Available DBP <80 (3078F) 3078F 2023-01-04 No Data Available No Data Available Functional Status Assessed (1170F) 1170F 2023-01-04 No Data Available No Data Avail able Estab. patient 30-39min; chronic exacerbation, 2 stable chronic or 1 acute illness add add modifier 95 for video, (do not use for phone, instead use [id number]) 00960 2023-06-20 No Data Available No Data Availa ble Medication List Documented (1159F) 1159F 2023-06-20 No Data Available No Data Kirsten ilable Medication Review by prescribing provider or pharmacist documented (1160F) 1160F 2023-06-20 No Data Available No Data Kirsten ilable Pain Assessment - NO pain present (1126F) 1126F 2023-06-20 No Data Available No Data A vailable BMI obtained (3008F) 3008F 2023-06-20 No Data Availab le No Data Available Advance Care Directive Advance care planning discussion documented in the medical record (1158F) 1158F 2023-06-20 No Data Available No Data Availa ble Advance care planning discussed and documented advance care plan or surrogate decision-maker was documented in the medical record. (1123F) 1123F 2023-06-20 No Data Available No Data Availa ble SBP < 130 (3074F) 3074F 2023-06-20 No Data Available No Data Available DBP <80 (3078F) 3078F 2023-06-20 No Data Available No Data Available Functional Status Assessed (1170F) 1170F 2023-06-20 No Data Available No Data Avail able Estab. patient 20-29min; 1 stable chronic or 2 minor; add add modifier 95 for video, modifier 93 for phone 59079 2024-03-17 No Data Available No Data Availa ble Medication List Documented (1159F) 1159F 2024-03-17 No Data Available No Data Kirsten ilable Functional Status Assessed (1170F) 1170F 2024-03-17 No Data Available No Data Avail able BMI obtained (3008F) 3008F 2024-03-17 No Data Availab le No Data Available Estab. patient 30-39min; chronic exacerbation, 2 stable chronic or 1 acute illness add add modifier 95 for video, (do not use for phone, instead use [id number]) 03833 2024-06-05 No Data Available No Data Availa ble Medication List Documented (1159F) 1159F 2024-06-05 No Data Available No Data Kirsten ilable Medication Review by prescribing provider or pharmacist documented (1160F) 1160F 2024-06-05 No Data Available No Data Kirsten ilable Functional Status Assessed (1170F) 1170F 2024-06-05 No Data Available No Data Avail able Pain Assessment - NO pain present (1126F) 1126F 2024-06-05 No Data Available No Data A vailable Advance Care Directive Advance care planning discussion documented in the medical record (1158F) 1158F 2024-06-05 No Data Available No Data Availa ble Advance care planning discussed and documented advance care plan or surrogate decision-maker was documented in the medical record. (1123F) 1123F 2024-06-05 No Data Available No Data Availa ble SBP 130-139 (3075F) 3075F 2024-06-05 No Data Availabl e No Data Available DBP 80-89 (3079F) 3079F 2024-06-05 No Data Available No Data Available No Data Available G8431 2024-06-05 No Data Available No Data Available Functional Status Functional Category Effective Dates Cognition Status: Dementia - moderate (needs ADL assistance),Recall 1/3 unrelated words at 3 minutes 2024-06-05 ADL Eating: Independent; Amb ulation: Walker; Dressing: Some Help Needed; Bathing: some assistance; Toileting: some assistance 2022-04-07 IADL Shopping: total assist; Housekeeping: total assist; Meal Prep: total assist; Medications Management: some assistance 2022-04-07 Activities of Daily Livin2023-01-04 Bathing: Needs Assistance 2023-01-04 Dressing: Needs Assistance 2023-01-04 Eating: Independent 2023-01-04 Ambulation/Walking: Needs Assistance, us es walker to ambulate. 2023-01-04 Toileting: Needs Assistance 2023-01-04 Transferring: Needs Assistance 2022-12-26 0 no falls in last 6 month 2023-06-20 has shower chair, walks with walker 2023 [employer] is Sara daughter and niece Kena 2023-06-20 Mental Status Status Date Cognition Status: Dementia - moderate (needs ADL assistance),Recall 1/3 unrelated words at 3 minutes 2024-06-05 Assessments Date of Service Assessments 2022-04-07 07:02:41 COPD (chronic obstru ctive pulmonary disease)HyperlipidemiaVascular diseaseLupusImmunodeficiency due to conditions classified elsewhereGERD (gastroesophageal reflux disease)HypothyroidismDementia without behavioral disturbanceMajor depressive disorder, recurrent, mildPulmonary hypertension, unspecifiedUrinary incontinenceCKD (chronic kidney disease) stage 3, GFR 30-59 ml/min 2023-01-04 08:32:35 COPD (chronic obstru ctive pulmonary disease)HyperlipidemiaVascular diseaseHistory of CVA (cerebrovascular accident)LupusImmunodeficiency due to conditions classified elsewhereGERD (gastroesophageal reflux disease)HypothyroidismMild dementia without behavioral disturbance, psychotic disturbance, mood disturbance, or anxietyMajor depressive disorder, recurrent, mildPulmonary hypertension, unspecifiedUrinary incontinenceCKD (chronic kidney disease) stage 2, GFR 60-89 ml/min 2023-06-20 06:27:37 COPD (chronic obstru ctive pulmonary disease)HyperlipidemiaVascular diseaseHistory of CVA (cerebrovascular accident)Lupus; Systemic involvement of connective tissue, unspecifiedImmunodeficiency due to conditions classified elsewhereGERD (gastroesophageal reflux disease)HypothyroidismMild dementia without behavioral disturbance, psychotic disturbance, mood disturbance, or anxietyMajor depressive disorder, recurrent, moderatePulmonary hypertension, secondaryUrinary incontinenceCKD (chronic kidney disease) stage 2, GFR 60-89 ml/minClosed wedge compression fracture of T8 vertebra, sequela 2024-03-17 07:10:17 COPD (chronic obstru ctive pulmonary disease)Other problems related to medical facilities and other health careHyperlipidemiaVascular diseaseHistory of CVA (cerebrovascular accident)Lupus; Systemic involvement of connective tissue, unspecifiedImmunodeficiency due to conditions classified elsewhereGERD (gastroesophageal reflux disease)HypothyroidismMild dementia without behavioral disturbance, psychotic disturbance, mood disturbance, or anxietyMajor depressive disorder, recurrent, moderatePulmonary hypertension, secondaryUrinary incontinenceCKD (chronic kidney disease) stage 2, GFR 60-89 ml/minClosed wedge compression fracture of T8 vertebra, sequelaPrimary osteoarthritis involving multiple joints, Gait instability 2024-06-05 07:31:03 COPD with emphysemaO ther problems related to medical facilities and other health careVascular diseaseHistory of CVA (cerebrovascular accident)Lupus; Systemic involvement of connective tissue, unspecifiedImmunodeficiency due to conditions classified elsewhereModerate vascular dementia with mood disturbance, Moderate episode of recurrent major depressive disorderPulmonary hypertension, unspecifiedUrinary incontinencePrimary osteoarthritis involving multiple joints, Gait instabilityEncounter for health-related screening Plan of Care Date of Service Plans 2022-04-07 07:02:41 Pain Assessment - NO pain documented (1126F)Medication Review by prescribing provider or pharmacist documented (1160F)Medication List Documented (1159F)Functional Status Assessed (1170F)Advance Care Directive Advance care planning discussion documented in the medical record (1158F)BMI obtained (3008F)SBP < 130 (3074F)DBP <80 (3078F)Televideo new patient, 30-44min 1 stable chronic or 2 minor; add modifier 95Continue to see PCP. Follow-up with [facility] as needed for any acute or disease education needs that may arise.On AlbuterolSpirivaWixelaOn 1-2L 02 PRNFollows a PulmonologistOn AtorvastatinEncouraged physical activityDiet low in saturated and trans fatHealthy diet, including lots of fruits and vegetables.On PlavixFollows a CardiologistOn HydroxychloroquineFollows a RheumatologistPer outside care- C3 level 167Lupus & RAWeakened immune system, encourage hand washing, avoid large crowds, stay up to date on vaccines (annual flu), monitor for and report early any s/s of infectionOn PantoprazoleAvoid spicy, fatty or fried food, caffeine, chocolateAvoid lying down after mealsAvoid eating late at nightOn LevothyroxineFollows a NeurologistOn CelexaOn SildenafilFollows a CardiologistWears diapers/ pull upsPer outside care- EGFR 54Avoid nephrotoxic medications (NSAIDS, high dose Gabapentin, Baclofen, Fleet Enema, Morphine/Codeine) 2023-01-04 08:32:35 Medication Review by prescribing provider or pharmacist documented (1160F)Medication List Documented (1159F)Functional Status Assessed (1170F)Advance Care Directive Advance care planning discussion documented in the medical record (1158F)BMI obtained (3008F)SBP < 130 (3074F)DBP <80 (3078F)Televideo 30-39min; chronic exacerbation, 2 stable chronic or 1 acute illness add modifier 95Advance care planning discussed and documented advance care plan or surrogate decision-maker was documented in the medical record. (1123F)Pain Assessment - NO pain documented (1126F)Continue to see PCP. Follow-up with [facility] as needed for any acute or disease education needs that may arise.On AlbuterolSpirivaWixelaOn 1-2L 02 PRNFollows a PulmonologistECCA Update 01/04/23:Follows up with Bean Snapper. No recent symptoms or episodes.Does not use supplemental Oxygen anymore.Uses Albuterol as needed. Using:Spiriva HandiHaler 18 MCG Cap INHALE THE CONTENTS OF 1 CAPSULE VIA HANDIHALER (USING 2 INHALATIONS) EVERY DAY DIRECTEDWixela Inhub 500-50 MCG/ACT Aerosol Powder Breath Activated INHALE ONE PUFF BY MOUTH TWICE A DAYAlbuterol Sulfate HFA 108 (90 Base) MCG/ACT Aerosol Solution INHALE TWO PUFFS BY MOUTH EVERY 4 TO 6 HOURS NEEDEDDenies any acute complaint.Continue treatment as prescribed, follow up as instructed.Contact CB 24/7 as needed.On AtorvastatinEncouraged physical activityDiet low in saturated and trans fatHealthy diet, including lots of fruits and vegetables.ECCA Update 01/04/23:Follows up with PCP.Taking:Atorvastatin Calcium 10 mg Tab TAKE ONE TABLET BY MOUTH EVERY DAYDoing well on current treatment.Denies any acute complaint.Continue treatment as prescribed, follow up as instructed.Low fat, low carb, low sugar diet. Contact CB 24/ as needed.On PlavixFollows a CardiologistECCA Update :History of CVA in 2013. Completed PT. No residual effects. History of DVTs years ago Denies any current symptoms.Taking:Plavix 75 mg Tab 1 tablet orally dailyDoing well on current treatment.Denies any acute complaint.Continue treatment as prescribed, follow up as instructed.Contact CB 24/7 as needed.On HydroxychloroquineFollows a RheumatologistPer outside care- C3 level 167ECCA Update 01/04/23:Follows up with Product Marketing Specialist.Taking:Hydroxychloroquine Sulfate 200 mg Tab take 1 tablet by mouth twice dailyDoing well on current treatment.Denies any acute complaint.Continue treatment as prescribed, follow up as instructed.Contact CB 24/7 as needed.Lupus & RAWeakened immune system, encourage hand washing, avoid large crowds, stay up to date on vaccines (annual flu), monitor for and report early any s/s of infectionOn PantoprazoleAvoid spicy, fatty or fried food, caffeine, chocolateAvoid lying down after mealsAvoid eating late at nightECCA Update 01/04/23:Pantoprazole Sodium 40 mg Tab delayed rel TAKE ONE TABLET BY MOUTH EVERY DAYDoing well on current treatment.Denies any acute complaint.Continue treatment as prescribed, follow up as instructed.Contact CB 24/7 as needed.On LevothyroxineECCA Update 01/04/23:Follows up with PCP.Taking:Levothyroxine Sodium 112 MCG Tab 1 tablet orally daily in the morning on an empty stomachDoing well on current treatment.Denies any acute complaint.Continue treatment as prescribed, follow up as instructed.Contact CB 24/7 as needed.Follows a NeurologistECCA Update 01/04/23:Follows up with neurologist every 4 months. Next appt 01/09/23. Daughter reports recent decline in memory. Taking:Donepezil 10 mg Tab 1 tablet dailyContinue treatment as prescribed, follow up as instructed.Contact CB 24/7 as needed.On CelexaECCA Update 01/04/23:Follows up with PCP and Neurologist.Reports doing well on current treatment.Taking:Citalopram Hydrobromide 40 mg Tab TAKE ONE TABLET BY MOUTH EVERY DAYSertraline 100 mg Tab 1 tablet once a dayDoing well on current treatment.Denies any acute complaint.Continue treatment as prescribed, follow up as instructed.Contact CB 24/7 as needed.On SildenafilFollows a CardiologistECCA Update 01/04/23:Does not follow up with Senior Qa Tester, only with Bean Snapper.Taking:Sildenafil Citrate 20 mg Tab TAKE ONE TABLET BY MOUTH THREE TIMES A DAYDoing well on current treatment.Denies any acute complaint.Continue treatment as prescribed, follow up as instructed.Contact CB 18/12 as needed.Wears diapers/ pull upsECCA Update 01/04/23:Continues experiencing urinary incontinence.Wears pull-ups. Denies any skin complaints. Has f/u appt with Urologist on 01/12/23. Advised to contact CB 18/12 if any symptoms develop.Per outside care- EGFR 54Avoid nephrotoxic medications (NSAIDS, high dose Gabapentin, Baclofen, Fleet Enema, Morphine/Codeine)ECCA Update 01/04/23:Most recent GFR found on outside records: EGFR 69 >59 mL/min/1.73m2 from 09/27/22.Avoid nephrotoxic medications (NSAIDS, high dose Gabapentin, Baclofen, Fleet Enema, Morphine/Codeine) 2023-06-20 06:27:37 Medication Review by prescribing provider or pharmacist documented (1160F)Medication List Documented (1159F)Functional Status Assessed (1170F)Advance Care Directive Advance care planning discussion documented in the medical record (1158F)BMI obtained (3008F)SBP < 130 (3074F)DBP <80 (3078F)Televideo 30-39min; chronic exacerbation, 2 stable chronic or 1 acute illness add modifier 95Advance care planning discussed and documented advance care plan or surrogate decision-maker was documented in e medical record. (1123F)Pain Assessment - NO pain documented (1126F)Continue to see PCP. Follow-up with [facility] as needed for any acute or disease education needs that may arise.On AlbuterolSpirivaWixelahx 02 Follows a PulmonologistUsing:Spiriva HandiHaler 18 MCG Cap INHALE THE CONTENTS OF 1 CAPSULE VIA HANDIHALER (USING 2 INHALATIONS) EVERY DAY DIRECTEDWixela Inhub 500-50 MCG/ACT Aerosol Powder Breath Activated INHALE ONE PUFF BY MOUTH TWICE A DAYAlbuterol Sulfate HFA 108 (90 Base) MCG/ACT Aerosol Solution INHALE TWO PUFFS BY MOUTH EVERY 4 TO 6 HOURS NEEDEDDenies any acute complaint.Continue treatment as prescribed, follow up as instructed.Contact CB 24/7 as needed.On AtorvastatinEncouraged physical activityDiet low in saturated and trans fatHealthy diet, including lots of fruits and vegetables.Contact CB 24/7 as needed.Follow up pcpOn PlavixDany a CardiologistHistory of CVA in 2013. Completed PT. No residual effects. No hemiparesis. History of DVTs years ago Denies any current symptoms.Follow up pcpOn HydroxychloroquineFollows a RheumatologistPer outside care- C3 level 167Lupus & RAWeakened immune system, encourage hand washing, avoid large crowds, stay up to date on vaccines (annual flu), monitor for and report early any s/s of infectionOn PantoprazoleAvoid spicy, fatty or fried food, caffeine, chocolateAvoid lying down after mealsAvoid eating late at nightFollow up pcpOn LevothyroxineFollow up pcp Monitor for major symptoms include fatigue, cold sensitivity, constipation, dry skin, and unexplained weight gain. Follow up PCP.Follows a Neurologist Daughter reports recent decline in memory. Donepezil 10 mg Tab 1 tablet dailyContinue treatment as prescribed, follow up as instructed.Contact CB 24/7 as needed.On CelexaFollows up with PCP and Neurologist.Phq2-3Depression tips: Spend time with family and friends, practice mindfulness and meditation, deep breathing, journaling, exercise if able, get outdoors, eat a balanced diet, and get regular sleep. Advised to take medications as prescribed. If you begin to have suicidal or homicidal thoughts discontinue medication and call office or 911. Call provider if adverse effects occur. Follow up with PCP.On SildenafilFollows a railroad surveyor Doing well on current treatment.Denies any acute complaint.Continue treatment as prescribed, follow up as instructed.Contact CB 24/7 as needed.Wears diapers/ pull upsContinues experiencing urinary incontinence.Wears pull-ups. Denies any skin complaints. Hx UTISHad f/u appt with Urologist on 01/12/23. Advised to contact CB 24/7 if any symptoms develop.Most recent GFR found on outside records: EGFR 69 >59 mL/min/1.73m2 from 09/27/22. (previously GFR 54) Avoid nephrotoxic medications (NSAIDS, high dose Gabapentin, Baclofen, Fleet Enema, Morphine/Codeine). Follow up pcp.No c/o painFollow up pcp 2024-03-17 07:10:17 Televideo 20-29min; 1 stable chronic or 2 minor; add modifier 95BMI obtained (3008F)Continue to see PCP. [facility] or disease education needs that may arise 18/12.On AlbuterolSpirivaWixelahx 02 Follows a PulmonologistUsing:Spiriva HandiHaler 18 MCG Cap INHALE THE CONTENTS OF 1 CAPSULE VIA HANDIHALER (USING 2 INHALATIONS) EVERY DAY DIRECTEDWixela Inhub 500-50 MCG/ACT Aerosol Powder Breath Activated INHALE ONE PUFF BY MOUTH TWICE A DAYAlbuterol Sulfate HFA 108 (90 Base) MCG/ACT Aerosol Solution INHALE TWO PUFFS BY MOUTH EVERY 4 TO 6 HOURS NEEDEDDenies any acute complaint.Continue treatment as prescribed, follow up as instructed.Contact CB 18/12 as needed.03/17/24: Requesting nebulizer as hers is broken, DME task placed.If you ever take your blood pressure and it is consistently over 170/90 or low 90/50s, have chest pain, shortness of breath, wheezing, fever, or leg swelling call us at [phone]. We are here to help.UTI CONTINGENCY PLANLast updated: 03/17/2024[facility] the [facility]: Abdominal pain/ Back pain/ Delirium/ Dysuria/ Fever/ Nausea or vomiting / Urinary frequencyPlanned intervention: Place order for urinalysis and culture; family to take sample to lab/ Encourage increased fluid intake/ Cefpodoxime 100mg BID x5d/ Take Tylenol for pain or fever COPD CONTINGENCY PLANLast updated: 03/17/2024[facility] call for the following symptoms: Albuterol not working/ Breathing loudly / Change in sputum / Increased cough / WheezingPlanned intervention: Increase use of albuterol inhaler to q2h PRN cough, breathlessness/ Doxycycline 100mg BID x 7 days/ Mucinex 400mg q4h with a full glass of water to thin secretions/ Confirm appropriate inhaler usage/ Prednisone 50mg po daily x 5 daysOn AtorvastatinEncouraged physical activityDiet low in saturated and trans fatHealthy diet, including lots of fruits and vegetables.Contact CB 24/7 as needed.Follow up pcpOn PlavixFourvashi a CardiologistHistory of CVA in 2013. Completed PT. No residual effects. No hemiparesis. History of DVTs years ago Denies any current symptoms.Follow up pcpOn HydroxychloroquineFollows a RheumatologistPer outside care- C3 level 167Lupus & RAWeakened immune system, encourage hand washing, avoid large crowds, stay up to date on vaccines (annual flu), monitor for and report early any s/s of infectionOn PantoprazoleAvoid spicy, fatty or fried food, caffeine, chocolateAvoid lying down after mealsAvoid eating late at nightFollow up pcpOn LevothyroxineFollow up pcp Monitor for major symptoms include fatigue, cold sensitivity, constipation, dry skin, and unexplained weight gain. Follow up PCP.Follows a Neurologist Daughter reports recent decline in memory. Donepezil 10 mg Tab 1 tablet dailyContinue treatment as prescribed, follow up as instructed.Contact CB 24/7 as needed.On CelexaFollows up with PCP and Neurologist.Phq2-3Depression tips: Spend time with family and friends, practice mindfulness and meditation, deep breathing, journaling, exercise if able, get outdoors, eat a balanced diet, and get regular sleep. Advised to take medications as prescribed. If you begin to have suicidal or homicidal thoughts discontinue medication and call office or 911. Call provider if adverse effects occur. Follow up with PCP.On SildenafilFollows a railroad surveyor Doing well on current treatment.Denies any acute complaint.Continue treatment as prescribed, follow up as instructed.Contact CB 24/7 as needed.Wears diapers/ pull upsContinues experiencing urinary incontinence.Wears pull-ups. Denies any skin complaints. Hx UTISHad f/u appt with Urologist on 01/12/23. Advised to contact CB 24/7 if any symptoms develop.Most recent GFR found on outside records: EGFR 69 >59 mL/min/1.73m2 from 09/27/22. (previously GFR 54) Avoid nephrotoxic medications (NSAIDS, high dose Gabapentin, Baclofen, Fleet Enema, Morphine/Codeine). Follow up pcp.No c/o painFollow up pcpMember requesting bedside commode secondary to Gait instability, dementia, OA, COPDM15.0, R26.81, F03.AO, J44.963, 130 2024-06-05 07:31:03 Televideo 30-39min; chronic exacerbation, 2 stable chronic or 1 acute illness add modifier 95Functional Status Assessed (1170F)Advance Care Directive Advance care planning discussion documented in the medical record (1158F)Advance care planning discussed and documented advance care plan or surrogate decision-maker was documented in the medical record. (1123F)SBP 130-139 (3075F)DBP 80-89 (3079F)Pain Assessment - NO pain documented (1126F)Medication List Documented (1159F)Continue to see PCP. Follow-up with [facility] as needed for any acute or disease education needs that may arise.On AlbuterolSpirivaWixelahx 02 Follows a PulmonologistUsing:Spiriva HandiHaler 18 MCG Cap INHALE THE CONTENTS OF 1 CAPSULE VIA HANDIHALER (USING 2 INHALATIONS) EVERY DAY DIRECTEDWixela Inhub 500-50 MCG/ACT Aerosol Powder Breath Activated INHALE ONE PUFF BY MOUTH TWICE A DAYAlbuterol Sulfate HFA 108 (90 Base) MCG/ACT Aerosol Solution INHALE TWO PUFFS BY MOUTH EVERY 4 TO 6 HOURS NEEDEDDenies any acute complaint.Continue treatment as prescribed, follow up as instructed.Contact CB 18/12 as needed.03/17/24: Requesting nebulizer as hers is broken, DME task placed.06/05/24: Stable. Continue medications as directed. Encouraged deep breathing and relaxation techniques as needed. Increase physical activities as tolerated. Maintain safety and fall precautions. Follow up with railroad surveyor as indicated.If you ever take your blood pressure and it is consistently over 170/90 or low 90/50s, have chest pain, shortness of breath, wheezing, fever, or leg swelling call us at [phone]. We are here to help.UTI CONTINGENCY PLANLast [facility]: [facility]2024[facility] UTIMember to call for the following symptoms: Abdominal pain/ Back pain/ Delirium/ Dysuria/ Fever/ Nausea or vomiting / Urinary frequencyPlanned intervention: Place order for urinalysis and culture; family to take sample to lab/ Encourage increased fluid intake/ Cefpodoxime 100mg BID x5d/ Take Tylenol for pain or fever COPD CONTINGENCY PLANLast updated: 03/17/2024[facility] to call for the following symptoms: Albuterol not working/ Breathing loudly / Change in sputum / Increased cough / WheezingPlanned intervention: Increase use of albuterol inhaler to q2h PRN cough, breathlessness/ Doxycycline 100mg BID x 7 days/ Mucinex 400mg q4h with a full glass of water to thin secretions/ Confirm appropriate inhaler usage/ Prednisone 50mg po daily x 5 days DEMENTIA CONTINGENCY PLANLast updated: 06/05/2024[facility] to call for the following symptoms: Aggression/ Delirium/ FeverPlanned intervention: Place order for urinalysis and culture; family to take sample to lab/ Encourage increased fluid intake/ Ask about last bowel movement/ Assess for UTI symptoms; if present, start Macrobid 100mg BID x5 days/ Trazodone 50mg at bedtime/ Limit extra stimulation.On PlavixFollows a CardiologistHistory of CVA in 2013. Completed PT. No residual effects. No hemiparesis. History of DVTs years ago Denies any current symptoms.Follow up pcp 06/05/24: Stable. Continue medications as directed. Encouraged diet and weight management. Discussed importance of routine labs and physical exams. Increase physical activities as tolerated. Maintain safety and fall precautions. Follow up with neurologist as indicated.On HydroxychloroquineFollows a RheumatologistPer outside care- C3 level : Stable. Continue medications as directed. Encouraged pain management and relaxation techniques as needed. Increase physical activities as tolerated. Maintain safety and fall precautions. Follow up with software test automation engineer as indicated.Lupus & RAWeakened immune system, encourage hand washing, avoid large crowds, stay up to date on vaccines (annual flu), monitor for and report early any s/s of infectionOn CelexaFollows up with PCP and Neurologist.Phq2-3Depression tips: Spend time with family and friends, practice mindfulness and meditation, deep breathing, journaling, exercise if able, get outdoors, eat a balanced diet, and get regular sleep. Advised to take medications as prescribed. If you begin to have suicidal or homicidal thoughts discontinue medication and call office or 911. Call provider if adverse effects occur. Follow up with PCP.Follows a Neurologist Daughter reports recent decline in memory. Donepezil 10 mg Tab 1 tablet dailyMemantineContinue treatment as prescribed, follow up as instructed.Contact CB 24/7 as needed.06/05/24: PHQ-9 score: 11Worsening symptoms. Continue medications as directed. Encouraged relaxation, reassurance, and redirection techniques as needed. Increase physical activities as tolerated. Maintain safety and fall precautions. Follow up with neurologist as indicated.On SildenafilFollows a railroad surveyor Doing well on current treatment.Denies any acute complaint.Continue treatment as prescribed, follow up as instructed.Contact CB 24/7 as needed.06/05/24: Stable. Continue medications as directed. Encouraged routine labs and physical exams. Increase physical activities as tolerated. Maintain safety and fall precautions. Follow up with PCP as indicated.Wears diapers/ pull upsContinues experiencing urinary incontinence.Wears pull-ups. Denies any skin complaints. Hx UTISHad f/u appt with Urologist on 01/12/23. Advised to contact CB 24/7 if any symptoms develop.Member requesting bedside commode secondary to Gait instability, dementia, OA, COPDM15.0, R26.81, F03.AO, J44.963, 130Cologuard task placed. Discussed importance of routine labs and preventative health screenings as indicated. Goals Date Goal 2022-04-07 Remember to 2022-04-07 Call me if 2022-04-07 Keep it up 2023-01-04 Remember to keep all appointments with your PCP and specialists. Call CB 24/7 if you have questions or concerns. Discussed how to contact [facility] via phone or tablet. 24/7 phone number provided. 2024-06-05 Remember to follow u p with PCP and specialists as directed.Call if you have any questions, comments, or concerns.Keep taking your medications as prescribed. Health Concerns Date Concern 2024-06-05 Visit completed elke werner audio/video. Patient/Guardian agreed to visit via telehealth. DaughterSara present to assist and translate during visit. Today, patient has chief complaint of: follow up care and comprehensive review.Reviewed Allergies, Medications, Active Medical conditions, past medical/surgical history, Social history. 2024-06-05 Advance Care Plan Co nversationDate of Conversation: 06/05/2024Life Limiting Diagnosis: DementiaCurrently on Hospice NoCode Status: YES CPR: Attempt ResuscitationGoals of Care: Curative: Attempt to sustain life by all medically effective meansNutrition goals: Feeding through new or existing surgically placed tube is ok Do you have a Durable Power of Road Contractor for Healthcare, or Healthcare Proxy Or Guardianship? Yes, preferred proxy but not named POAIf so, Who? Sara, DaughterDo you have a written Advance Directive? Has Advance DirectiveOther details of discussion: (Who was present, patients description of wishes/goals)Today's plan: Advised patient to discuss wishes with [id number] : AD or surrogate was documented in the medical record. 2024-06-05 Most recent hospital stay(s) or ER visit(s) and precipitating factors: None recently reported in the past six months. 2024-06-05 Open HEDIS Measure jeff tyler: Reviewed
--- OUTSIDE RECORDS SUMMARY | 2024-12-02 10:16 | XMS_ITS | Clinical Summary ---
Author Organization [facility] Address [address] [place] [address] Care Team Providers Care Greeter Guest Services Name Role Phone Salvador Devries MD Primary Care Provider [phone] Medications Vitamin D3 10 mcg (400 unit) tablet Take 1 tablet (400 Units total) by mouth 1 (one) time each day. 90 each 3 5 Active Vitamin D3 10 mcg (400 unit) tablet Take 1 tablet (400 Units total) by mouth 1 (one) time each day. 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 supplemental O2 Chronic [...] Upcoming Encounters Date Type Department Care Team ([facility] Contact Info) Description 03/03/2025 9:45 AM EDT Office Visit Pulmonolgy - [place] [address] [place] [address] Usama Gracia MD [address] [facility] [address] [place] [address] Health Maintenance Due Date Last Done Comments Breast Cancer Screening 1950 Pneumococcal Vaccine: 50+ Ye ars (1 of 2 - PCV) 10/03/1970 Zoster Vaccines (1 of 2) 10/03/2001 RSV Immunization Adult Patie nts (1 - Risk 60-74 years 1-dose series) 2011 DTaP,Tdap,and Td Vaccines (2 - Td or Tdap) 05/08/2023 05/08/2013 COVID-19 Vaccine ( - 2023-2 5 season) 2024 Colorectal Cancer Screening: Colonoscopy 11/14/2024 Depression Screening 11/14/2024 Falls Risk Assessment 11/14/2024 Hepatitis C Screening 11/14/2024 Osteoporosis Screening (Bone Density Screening) 11/14/2024 Social Influencers of Health Screening 11/14/2024 Influenza Vaccine (#1) 2025 HIB Vaccines Aged Out No longer eligi [...] patient's age to complete this topic Insurance [facility] [place] [id number] MEDICAID - [place] Care Teams Greeter Guest Services Relationship Specialty Start Date End Date Salvador Devries MD PCP - General Internal Medicine 05/17/18
== END 2024-12-02 10:24 | disposition home or self-care (01) ==
LOC: HO.HSM 09:43
PROVIDERS: PCP Internal Medicine; Referring Provider Internal Medicine; Visit Provider Registered Nurse
DX: G30.9 Alzheimer's disease, unspecified (principal); F02.80 Dementia in other diseases classified elsewhere, unspecified severity, without behavioral disturbance, psychotic disturbance, mood disturbance, and anxiety; I63.9 Cerebral infarction, unspecified
CPT/HCPCS: 99214

== ENCOUNTER → 2024-12-02 09:42 | Outpatient (BNVA) | payer OTHER, SELFPAY | PROVIDERS: PCP Internal Medicine; Referring Provider Internal Medicine; Visit Provider Registered Nurse | DX: G30.9 Alzheimer's disease, unspecified (principal); F02.80 Dementia in other diseases classified elsewhere, unspecified severity, without behavioral disturbance, psychotic disturbance, mood disturbance, and anxiety; Z86.73 Personal history of transient ischemic attack (TIA), and cerebral infarction without residual deficits | CPT/HCPCS: 99212 ==

== ENCOUNTER 2025-01-20 09:39 | Outpatient (AMB) | payer OTHER, SELFPAY ==
--- NOTE | 2025-01-20 10:06 | A.OFFVIS_ITS ---
Intake Visit Reasons: Pt daughter requested to discuss medication Allergies potassium chloride (Potassium Chloride) Allergy (Severe, Verified 12/02/24 09:53) SWELLING aspirin Allergy (Intermediate, Verified 12/02/24 09:53) bleeding morphine (MORPHINE) Allergy (Intermediate, Verified 12/02/24 09:53) HALLUCINATIONS levofloxacin (From Levaquin) Adverse Reaction (Mild, Verified 12/02/24 09:53) SEVERE DIARRHEA ranitidine (From Zantac) Adverse Reaction (Mild, Verified 12/02/24 09:53) CONFUSION Medication List - Last Reconciled 01/20/25 by Hoa Krueger MD albuterol sulfate 2.5 mg (3 mL) inhalation TID PRN atorvastatin 10 mg PO DAILY calcium carbonate-vitamin D3 600 mg-10 mcg (400 unit) 1 tab PO DAILY cholecalciferol (vitamin D3) (Vitamin D3) 10 mcg PO DAILY citalopram 10 mg PO DAILY 7 days clopidogrel 75 mg PO DAILY donepezil 10 mg PO BEDTIME 90 days fluticasone propion-salmeterol 500-50 mcg/dose (Wixela Inhub) 1 ea PO BID folic acid 1 mg PO DAILY food supplemt, lactose-reduced (Boost) 1 ea PO BID 24 days hydroxychloroquine 400 mg (2 x 200 mg) PO DAILY levothyroxine 100 mcg PO DAILY 90 days meclizine 12.5 mg PO TID PRN memantine 10 mg PO BID 90 days pantoprazole 40 mg PO DAILY pyridoxine (vitamin B6) 100 mg PO DAILY quetiapine 12.5 - 25 mg (0.5 - 1 x 25 mg) PO DAILY PRN 30 days sildenafil (pulm.hypertension) 20 mg PO TID sucralfate (Carafate) 1 g PO BID tiotropium bromide 1.25 mcg/actuation (Spiriva Respimat) 2 puffs inhalation DAILY triamcinolone acetonide 0.1% 1 appl topical DAILY 30 days HPI Comments Details: More paranoia and agitation and verbally abusive. Needs help with dressing and hygeine. Refuses to wear Depends. Is incontinent but not aware. Memory is worse. Still recognizes family. Has caregivers and family next door. Sits next to window and looks out. Able to do crosswords. She did not want to leave the house or go for walks. No falls. Sleep was okay. Appetite was still poor and she was taking Boost. No significant weight loss. Progressive dementia over last couple of years. Father may have had dementia. Occasional frontal BEE 1-2/ wk for a short time or all day without triggers. No stroke/ TIA. Takes Tylenol with slight help. Feels dizzy at times. History of lupus, rheumatoid arthritis, COPD, GERD and cholelithiasis. Sits by the window and watches people outside. On 05/18/14 She presented with a headache that came on fairly severe and different than previous headaches mostly on the right side followed by right facial numbness, vertigo, nausea and vomiting and inability to walk. The room was spinning around. She had multiple episodes of vomiting including diarrhea. She complained of no lateralized weakness. No speech proble ms. She had an initial CT scan which showed some microvascular disease. A subsequent MRI has shown a small acute infarct in the dorsal aspect of the right medulla. It also shows old microvascular changes and lacunar infarcts especially in the left hemisphere deep white matter. CT 06/21/14 was normal. [facility] Medical History (Updated 01/20/25 @ 10:13 by Hoa Krueger MD) COPD (chronic obstructive pulmonary disease) Rheumatoid arthritis Lupus (systemic lupus erythematosus) Alzheimer's disease Depression Tension headache MCI (mild cognitive impairment) with memory loss Headache Dizziness Stroke Mild recurrent major depression Memory loss Moderate asthma GERD (gastroesophageal reflux disease) Hypothyroidism Dyslipidemia Physical exam Pulmonary hypertension Undifferentiated connective tissue disease Surgical History History of hysterectomy History of hernia surgery History of Family History Father No problems noted. Mother No problems noted. Social History Housing: Apartment Alcohol intake: never Patient Tobacco Use Status: Never used Tobacco e-Cigarette/Vaping Use: Never Used Second Hand Smoke Exposure: Yes service: No Current occupational status: disabled Cognitive needs: No Hearing needs: No Vision needs: Yes Review of Systems Const Details: ROS: ? General/Constitutional Change in appetite?denies.?Fatigue?admits.?Fever?denies.?Weight gain?denies.? Weight loss?denies. ? Sleep Difficulty getting to sleep?denies.?Difficulty maintaining sleep?denies?.? Daytime sleepiness?denies. ? Respiratory Shortness of breath?admits.?Chest pain?denies. ? Cardiovascular Chest pain at rest?denies.?Chest pain with exertion?denies.?Dizziness?denies.? Fluid accumulation in the legs?denies.?Irregular heartbeat?denies.?Palpitations ?denies. ? Gastrointestinal Constipation?denies.?Diarrhea?denies.?Difficulty swallowing?denies.?Heartburn ?denies.?Nausea?denies. ? Genitourinary Frequent urination?denies.?Urgency?denies.?Incontinence?denies. ? Musculoskeletal Neck pain?denies.?Back pain?denies.?Joint stiffness?denies.?Sciatica?denies. ? Neurologic Difficulty swallowing?denies.?Balance difficulty?admits.?Coordination?normal.? Difficulty speaking?denies.?Dizziness?admits.?Fainting?denies.?Gait abnormality ?denies.?Headache?that is chronic.?Loss of strength?denies.?Loss of use of extremity?denies.?Low back pain?denies.?Memory loss?admits.?Seizures?denies.? Tics?denies.?Tingling/Numbness?right face.?Transient loss of vision?denies.? Tremor?denies. ? Psychiatric Anxiety?denies.?Auditory/visual hallucinations?denies.?Delusions?denies.? Depressed mood?admits.?Stressors?denies.?Suicidal thoughts?denies. Physical Exam Neuro Other: ?Neurological Abnormal neurological findings:?Right facial numbness to touch and pinprick. Mild truncal ataxia. Flat affect. MMSE 16/30.? Mental Status:?alert as below.? Cranial Nerves:?Pupils are equal, round and reactive to light. Fundoscopy shows normal disc bilaterally. External occular muscles are intact. Visual layne are full, no ptosis. Face is symmetrical, no facial weakness or droop. Facial sensations are diminished on the right. Tongue protrudes in midline. Palate elevates symmetrically. Shoulder shrugging is normal..? Motor Examination:?Normal muscle tone, bulk and strength,?No atrophy or fasciculations,?No drift of the extended upper extremities,?Deep tendon reflexes are 2+?,?Plantars are flexor?.? Straight Leg Raising:?90 degrees.? Sensory Exam:?Normal light touch, temperature, pinprick, vibration and joint-position sensations?,?Rhomberg sign is absent.? Coordination:?no ataxia,?no titubation,?bztkew-mp-furr, zxox-bebe-qeww test and rapid alternating movements were normal.? Gait Exam:?Slight truncal ataxia.? Cerebellar Signs:?Ustpne-tw-vgjz and pidg-qr-cuqs is normal,?no dysdiadochokinesia . Mild truncal ataxia.? Extrapyramidal System:?No tremor, rigidity with normal facial expressions,?No bradykinesia, no bradyphrenia. Normal arm swing and posture. No propulsion or retropulsion.? Speech:?Normal,?no dysphasia or dysarthria..? Mini Mental Status Exam Level of Consciousness:?Alert.? Orientation:?Does not know correct year, month, date, day, and season.?Knows correct city, county and state. Knows correct location. Does not know correct floor..? Registration:?Able to register 3 objects.? Attention:?Serial 7's unable . 6 grade education.? Recall:?Able to recall 0-1 out of 3 objects.? Language:?Normal spontaneous speech, fluency, repetition,naming, comprehension, reading and writing.? Total Score:?16/30.? General Examination GENERAL APPEARANCE:?normal,?in no acute distress.? HEART:?S1, S2 normal,?no murmurs.? LUNGS:?clear anteriorly and posteriorly.? MUSCULOSKELETAL:?normal.? EXTREMITIES:?no edema.? PSYCH:?alert, as above.? Assessment & Plan Assessment & Plan (1) Alzheimer's disease: Code(s): G30.9 - Alzheimer's disease, unspecified; F02.80 - Dementia in other diseases classified elsewhere, unspecified severity, without behavioral disturbance, psychotic disturbance, mood disturbance, and anxiety Category: Medical (2) Stroke: Code(s): I63.9 - Cerebral infarction, unspecified Category: Medical Qualifiers: CVA mechanism: unspecified Qualified Code(s): I63.9 - Cerebral infarction, unspecified (3) Mild recurrent major depression: Code(s): F33.0 - Major depressive disorder, recurrent, mild Category: Medical (4) Tension headache: Code(s): G44.209 - Tension-type headache, unspecified, not intractable Category: Medical Plan continue current meds Medications: Changed From citalopram 10 mg PO DAILY 7 days 7 tabs 0RF To citalopram 40 mg PO DAILY 30 tabs 6RF 30 days Coding Level of Care Code Est Pt Level 4 (71212) Diagnoses Alzheimer's disease G30.9; F02.80 Cerebrovascular accident (CVA), unspecified mechanism I63.9 CVA mechanism: unspecified Mild recurrent major depression F33.0 Tension headache G44.209
--- OUTSIDE RECORDS SUMMARY | 2025-01-20 10:17 | XMS_ITS | Clinical Summary ---
Author Organization [facility] Address [address] [place] [phone] Phone Care Team Providers Care Underwriting Director Name Role Phone Eileen Mcmahan MD Primary Care Provid er Allergies Active Allergy Reactions Criticality Noted Date Comments Aspirin Bleeding High 05/25/2021 Levofloxacin Diarrhea 05/25/2021 Morphine Hallucinations High 05/25/2021 Potassium Chloride Swelling 05/25/2021 Ranitidine Hcl Mental Status Change 05/25/2021 confusion Medications atorvastatin (LIPITOR) 10 MG tablet Take 10 mg by mouth daily. Active calcium carbonate-vitam in D3 1500 mg (600 mg elemental)-400 units per tablet Take 1 tablet by mouth daily. Active cholecalciferol , vitamin D3, 25 mcg (1,000 unit) capsule Take 1,000 Units by mouth daily. Active clopidogrel (PLAVIX) 75 mg tablet Take 75 mg by mouth daily. Active folic acid (FOLVITE) 1 MG tablet Take 1 mg by mouth daily. Active levothyroxine (SYNTHROID, LEVOTHROID) 112 MCG tablet Take 112 mcg by mouth every morning. Active pantoprazole (PROTONIX) 40 MG tablet Take 40 mg by mouth daily. Active sildenafiL (REVATIO) 20 mg tablet Take 20 mg by mouth 3 (three) times a day. Active donepeziL (ARICEPT) 10 MG tablet Take 10 mg by mouth nightly at bedtime. at bedtime. 023 Active memantine (NAMENDA) 10 MG tablet Take 1 tablet by mouth 2 (two) times a day. 023 Active citalopram (CELEXA) 20 MG tablet Take 40 mg by mouth daily. Active QUEtiapine (SEROQUEL) 25 MG tablet Take 25-50 mg by mouth as needed. 025 Active zoledronic acid (RECLAST) 5 mg/100 mL PgBkIndications :postmenopausal osteoporosis and high fracture risk Inject 5 mg into the vein once. Indications: osteoporosis in postmenopausal woman at high risk for fracture 025 Active hydroxychloroqu ine (PLAQUENIL) 200 mg tabletIndicatio ns:Undifferenti ated connective tissue disease TAKE ONE TABLET BY MOUTH TWICE A DAY WITH FOOD 180 tablet 3 025 Active hydroxychloroqu ine (PLAQUENIL) 200 mg tabletIndicatio ns:Undifferenti ated connective tissue disease Take 1 tab twice daily with food 180 tablet 3 024 2024 Discontinued Active Problems Problem Noted Date Diagnosed Date Age-related osteoporosis wit hout current pathological fracture 12/10/2024 Assessment & Plan (12/10/2024 10:47 AM EDT): Continue proper calcium and vitamin D supplementation, fall and fracture prevention strategies in addition to daily weightbearing exercises aiming for 45-60 minutes. In view of documented osteoporosis, marked thoracic kyphosis I offered her intravenous Reclast every 12 months-pamphlet on its side effects provided to review in Malay. Cold sensitivity 06/11/2024 Assessment & Plan (12/10/2024 10:07 AM EDT): Dress in layers, avoid prolonged cold exposure & keep active to tolerance . Assessment & Plan (06/17/2024 4:02 PM EST): Dress in layers, avoid prolonged cold exposure & keep active to tolerance . Osteopenia of both hips 12/10/2023 Assessment & Plan (06/11/2024 11:05 AM EST): Due to lumbar spine and bilateral hip osteopenia on BMD from 08/19/2021 I have requested interval BMD and encouraged her to continue proper calcium vitamin D supplementation, daily weightbearing exercises in addition to fall and fracture prevention strategies. Assessment & Plan (12/18/2023 10:07 PM EDT): Due to lumbar spine and bilateral hip osteopenia on BMD from 08/19/2021 I have requested interval BMD and encouraged her to continue proper calcium vitamin D supplementation, daily weightbearing exercises in addition to fall and fracture prevention strategies. Recurrent major depressive disorder 04/02/2023 Assessment & Plan (12/10/2024 10:06 AM EDT): Encouraged to communicate with prescribing physician observed increased nausea and dizziness that developed with changes in her antidepressant therapy. Encouraged to keep well-hydrated and eat well-balanced nutritionally diet focused on favorite food to keep stable body weight and to continue regular walking accompanied by family members prevent/decrease bone, muscle weakness and reduced cardiopulmonary fitness. Assessment & Plan (06/11/2024 11:04 AM EST): Encouraged to communicate with prescribing physician observed increased nausea and dizziness that developed with changes in her antidepressant therapy. Encouraged to keep well-hydrated and eat well-balanced nutritionally diet focused on favorite food to keep stable body weight and to continue regular walking accompanied by family members prevent/decrease bone, muscle weakness and reduced cardiopulmonary fitness. Assessment & Plan (12/18/2023 10:03 PM EDT): Encouraged to communicate with prescribing physician observed increased nausea and dizziness that developed with changes in her antidepressant therapy. Encouraged to keep well-hydrated and eat well-balanced nutritionally diet focused on favorite food to keep stable body weight and to continue regular walking accompanied by family members prevent/decrease bone, muscle weakness and reduced cardiopulmonary fitness. Assessment & Plan (04/02/2023 12:50 PM EST): Encouraged to communicate with prescribing physician observed increased nausea and dizziness that developed with changes in her antidepressant therapy. Encouraged to keep well-hydrated and eat well-balanced nutritionally diet focused on favorite food to keep stable body weight and to continue regular walking accompanied by family members prevent/decrease bone, muscle weakness and reduced cardiopulmonary fitness. Undifferentiated connective tissue disease 05/30 Assessment & Plan (12/10/2024 10:06 AM EDT): Generally stable clinically and laboratory [place]. Carefully continue Plaquenil 200 mg twice daily. Get monitoring labs on her way out of the office today-orders in [facility]. Use daily sun protection all year-round particularly during spring and summer on Plaquenil Gentle, regular exercise after warm pack or warm shower. Avoid falls, injuries, overuse and sick contacts. Call if questions or problems otherwise return in 6 months with prior blood work-standing orders in [facility] Assessment & Plan (06/17/2024 4:00 PM EST): Generally stable clinically and laboratory [place]. Carefully continue Plaquenil 200 mg twice daily. Get monitoring labs on her way out of the office today-orders in [facility]. Use daily sun protection all year-round particularly during spring and summer on Plaquenil Gentle, regular exercise after warm pack or warm shower. Avoid falls, injuries, overuse and sick contacts. Call if questions or problems otherwise return in 6 months with prior blood work-standing orders in [facility] Assessment & Plan (12/18/2023 10:02 PM EDT): Generally stable clinically and laboratory [place]. Carefully continue Plaquenil 200 mg twice daily. Use daily sun protection all year-round particularly during spring and summer on Plaquenil Gentle, regular exercise after warm pack or warm shower. Avoid falls, injuries, overuse and sick contacts. Call if questions or problems otherwise return in 6 months with prior blood work-standing orders in [facility] Assessment & Plan (04/02/2023 12:48 PM EST): Generally stable clinically and laboratory [place]. Carefully continue Plaquenil 200 mg twice daily. Use daily sun protection all year-round particularly during spring and summer on Plaquenil Gentle, regular exercise after warm pack or warm shower. Avoid falls, injuries, overuse and sick contacts. Call if questions or problems otherwise return in 6 months with prior blood work-standing orders in [facility] Assessment & Plan (10/17/2022 5:56 PM EDT): Carefully continue Plaquenil 200 mg twice daily. Use daily sun protection all year-round particularly during spring and summer on Plaquenil Gentle, regular exercise after warm pack or warm shower. Avoid falls, injuries, overuse and sick contacts. Call if questions or problems otherwise return in 6 months with prior blood work-standing orders in [facility] Assessment & Plan (11/06/2021 2:36 PM EDT): Get the new set of lab work today and release prior records for review and comparison. Carefully continue Plaquenil 200 mg twice daily. Gentle, regular exercise after warm pack or warm shower. Avoid falls, injuries, overuse and sick contacts. Call if questions or problems otherwise return in 4 months with prior blood work-standing orders in [facility] Assessment & Plan (05/30/2021 1:53 PM EST): Get the new set of lab work today and release prior records for review and comparison. Carefully continue Plaquenil 200 mg twice daily. Gentle, regular exercise after warm pack or warm shower. Avoid falls, injuries, overuse and sick contacts. Call if questions or problems otherwise return in 3 months with prior blood work-standing orders in [facility] Pulmonary hypertension 05/30/2021 Assessment & Plan (12/10/2024 10:06 AM EDT): Continue Revatio as prescribed and follow-up with plasma table operator as scheduled. Remain on continuous oxygen supplementation at 2 L/min as instructed by treating plasma table operator. Assessment & Plan (06/11/2024 11:05 AM EST): Continue Revatio as prescribed and follow-up with plasma table operator as scheduled. Remain on continuous oxygen supplementation at 2 L/min as instructed by treating plasma table operator. Assessment & Plan (12/18/2023 10:03 PM EDT): Continue Revatio as prescribed and follow-up with plasma table operator as scheduled. Remain on continuous oxygen supplementation at 2 L/min as instructed by treating plasma table operator. Assessment & Plan (11/06/2021 2:35 PM EDT): Continue Revatio as prescribed and follow-up with plasma table operator as scheduled. Remain on continuous oxygen supplementation at 2 L/min as instructed by treating plasma table operator. Assessment & Plan (05/30/2021 1:56 PM EST): Continue Revatio as prescribed and follow-up with plasma table operator as scheduled. Remain on continuous oxygen supplementation at 2 L/min. Long-term use of hydroxychloroquine 05/30/2021 Assessment & Plan (12/10/2024 10:06 AM EDT): Carefully continue Plaquenil 200 mg twice daily. Keep well-hydrated. Daily sun protection all year round. Follow with truck [employer] bus motor mechanic every 6 months to monitor for ocular toxicity. EKG did not reveal prolongation of QT interval. Assessment & Plan (06/11/2024 11:10 AM EST): Carefully continue Plaquenil 200 mg twice daily. Keep well-hydrated. Daily sun protection all year round. Follow with truck railroad and bus motor mechanic every 6 months to monitor for ocular toxicity. EKG did not reveal prolongation of QT interval. Assessment & Plan (12/18/2023 10:03 PM EDT): Carefully continue Plaquenil 200 mg twice daily. Keep well-hydrated. Daily sun protection all year round. Follow with truck railroad and bus motor mechanic every 6 months to monitor for ocular toxicity. EKG did not reveal prolongation of QT interval. Assessment & Plan (04/02/2023 10:38 AM EST): Carefully continue Plaquenil 200 mg twice daily. Keep well-hydrated. Daily sun protection all year round. Follow with truck railroad and bus motor mechanic every 6 months to monitor for ocular toxicity. EKG did not reveal prolongation of QT interval. Assessment & Plan (09/29/2022 2:42 PM EDT): Carefully continue Plaquenil 200 mg twice daily. Keep well-hydrated. Daily sun protection all year round. Follow with truck [employer] and bus motor mechanic every 6 months to monitor for ocular toxicity. EKG did not reveal prolongation of QT interval. Assessment & Plan (11/06/2021 2:36 PM EDT): Carefully continue Plaquenil 200 mg twice daily. Keep well-hydrated. Daily sun protection all year round. Follow with truck [employer] and bus motor mechanic every 6 months to monitor for ocular toxicity. EKG did not reveal prolongation of QT interval. Assessment & Plan (05/30/2021 1:54 PM EST): Carefully continue Plaquenil 200 mg twice daily. Keep well-hydrated. Daily sun protection all year round. Follow with truck [employer] and bus motor mechanic every 6 months to monitor for ocular toxicity. EKG requested to make sure there is no prolongation of QT interval. Anticoagulated 05/30/2021 Assessment & Plan (12/10/2024 10:07 AM EDT): Continue Plavix daily as prescribed. Avoid falls, injuries and cuts. Monitor for excessive bruising and bleeding. Assessment & Plan (06/11/2024 11:11 AM EST): Continue Plavix daily as prescribed. Avoid falls, injuries and cuts. Monitor for excessive bruising and bleeding. Assessment & Plan (12/18/2023 10:03 PM EDT): Continue Plavix daily as prescribed. Avoid falls, injuries and cuts. Monitor for excessive bruising and bleeding. Assessment & Plan (04/02/2023 10:38 AM EST): Continue Plavix daily as prescribed. Avoid falls, injuries and cuts. Monitor for excessive bruising and bleeding. Assessment & Plan (09/29/2022 2:41 PM EDT): Continue Plavix daily as prescribed. Avoid falls, injuries and cuts. Monitor for excessive bruising and bleeding. Assessment & Plan (10/17/2021 11:21 AM EDT): Continue Plavix daily as prescribed. Avoid falls, injuries and cuts. Monitor for excessive bruising and bleeding. Assessment & Plan (05/30/2021 1:53 PM EST): Continue Plavix daily as prescribed. Avoid falls, injuries and cuts. Monitor for excessive bruising and bleeding. On statin therapy 05/30/2021 Assessment & Plan (12/10/2024 10:07 AM EDT): Monitor for muscle tenderness, swelling and weakness Assessment & Plan (06/11/2024 11:10 AM EST): Monitor for muscle tenderness, swelling and weakness Assessment & Plan (09/29/2022 2:42 PM EDT): Monitor for muscle tenderness, swelling and weakness Assessment & Plan (10/17/2021 11:22 AM EDT): Monitor for muscle tenderness, swelling and weakness Assessment & Plan (05/30/2021 1:55 PM EST): Monitor for muscle tenderness, swelling and weakness Gastroesophageal reflux disease without esophagi tis 05/30/2021 Assessment & Plan (12/10/2024 10:46 AM EDT): Avoid late, large, spicy meals. Keep headboard elevated at 45 angle for nighttime. Carefully continue Protonix (pantoprazole 40 mg daily. Assessment & Plan (06/11/2024 11:10 AM EST): Avoid late, large, spicy meals. Keep headboard elevated at 45 angle for nighttime. Assessment & Plan (12/18/2023 10:03 PM EDT): Avoid late, large, spicy meals. Keep headboard elevated at 45 angle for nighttime. Assessment & Plan (04/02/2023 10:38 AM EST): Avoid late, large, spicy meals. Keep headboard elevated at 45 angle for nighttime. Assessment & Plan (09/29/2022 2:41 PM EDT): Avoid late, large, spicy meals. Keep headboard elevated at 45 angle for nighttime. Assessment & Plan (10/17/2021 11:21 AM EDT): Avoid late, large, spicy meals. Keep headboard elevated at 45 angle for nighttime. Assessment & Plan (05/30/2021 1:54 PM EST): Avoid late, large, spicy meals. Keep headboard elevated at 45 angle for nighttime. Resolved Problems Problem Noted Date Diagnosed Date Resolved Date Supplemental oxygen dependent 05/30/2021 09/29/2022 Assessment & Plan (10/17/2021 11:22 AM EDT): She is aware of need to keep it clean and away from fire sources. Assessment & Plan (05/30/2021 1:57 PM EST): She is aware of need to keep it clean and away from fire sources. Encounters Date Type Department Care Team Description 01/14/2025 Refill [facility] Rheumatology [address] [place] [address] [place] [address] Óscar Valerio MD Medication Refill 01/13/2025 10:30 AM EDT Infusion [facility] [address] [place] [id number] Óscar Valerio MD Age-related osteoporosis without current pathological fracture (Primary Dx) 12/10/2024 10:37 AM EDT - 12/10/2024 11:59 PM EDT Hospital Encounter [facility] Laboratory [address] [place] [address] [place] [address] Óscar Valerio MD Discharge Disposition: Home or Self Care 12/10/2024 10:00 AM EDT Office Visit [facility] Rheumatology [address] [place] [address] [place] [address] Óscar Valerio MD Undifferentiated connective tissue disease (Primary Dx); Long-term use of hydroxychloroquine; Gastroesophageal reflux disease without esophagitis; Age-related osteoporosis without current pathological fracture; Moderate episode of recurrent major depressive disorder; Pulmonary hypertension; Anticoagulated; On statin therapy; Cold sensitivity 12/10/2024 Telephone [facility] Rheumatology [address] [place] [address] [place] [address] sÓcar Valerio MD Reclast 12/05/2024 9:00 AM EDT - 12/05/2024 11:59 PM EDT Hospital Encounter [facility], Bone Density - [facility] [address] [place] [address] Óscar Valerio MD Discharge Disposition: Home or Self Care from Last 3 Months Social History Tobacco Use Types Packs/Day Years Used Date Smoking Tobacco: Never Smokeless Tobacco: Never Tobacco Cessation:Counseling Given: Not Answered Education Answer Date Recorded Are you interested in more education? Not on olive e 09/22/2022 Are you concerned about learning? Not on file 09/22/2022 No 09/22/2022 No 09/22/2022 Digital Access Answer Date Recorded No 10/18/2022 No 10/18/2022 Reliable internet access at home? Not on file 10/18/2022 Device with a working camera? Not on file Comments Unknown Sex and Gender Information Value Date Recorded Sex Assigned at Not on file Legal Sex Female 2:41 PM EDT Gender Identity Not on file Sexual Orientation Not on file Last Filed Vital Signs Vital Sign Reading Time Taken Comments Blood Pressure 120/66 01/13/2025 11:17 AM EDT Pulse 68 01/13/2025 11:17 AM EDT Temperature 36.1 C (96.9 F) 01/13/2025 10:15 AM EDT Respiratory Rate 18 01/13/2025 10:15 AM EDT Oxygen Saturation 97% 01/13/2025 11:17 AM EDT Inhaled Oxygen Concentration - - Weight 67.4 kg (148 lb 9.6 oz) 12/10/2024 9:51 A M EDT Height 157.8 cm (5' 2.13 ) 12/10/2024 9:51 AM ED T Body Mass Index 27.07 12/10/2024 9:51 AM EDT Plan of Treatment Upcoming Encounters Date Type Department Care Team (Late st Contact Info) Description 04/16/2025 10:00 AM EST Office Visit [facility] Rhe[facility]ology [address] [place] [address] Óscar Valerio MD [address] [place] [address], [address] [place] [address] [email or web address] Health Maintenance Due Date Last Done Comments LIPID PANEL 1951 DEPRESSION SCREENING 1963 HEPATITIS C SCREENING 10/03/1969 MAMMOGRAM 1991 COLOGUARD 10/03/1996 COLONOSCOPY 10/03/1996 COLORECTAL CANCER SCREENING 10/03/1996 FIT TEST 10/03/1996 FOBT 10/03/1996 SIGMOIDOSCOPY 10/03/1996 VIRTUAL COLONOSCOPY 10/03/1996 ZOSTER VACCINES (2 of 3) 12/08/2013 10/13/2013 PNEUMOCOCCAL VACCINES (50+ years) (2 of 2 - PCV) 05/07/2020 05/07/2019, 11/06/2005 COVID-19 VACCINE (5 - season) 2024 04/06/2023, 04/14/2021, 08/30/2020, Additional history exists TSH LEVEL 06/20/2025 06/20/2024 Adult Td,Tdap Booster 05/07/2029 05/07/2019 , 02/09/2014, 05/25/2005 RSV VACCINE Completed 02/13/2023 OSTEOPOROSIS SCREENING INITIAL (ONE-TIME) Completed 12/05/2024, 08/19/2021 SMOKING STATUS SCREENING (Once After 26 Yrs) Completed 12/10/2024 HEPATITIS A VACCINES Aged Out No long er eligible based on patient's age to complete this topic HIB VACCINES Aged Out No longer eligi ble based on patient's age to complete this topic MENINGOCOCCAL VACCINES (ACWY) Aged Out No longer eligible based on patient's age to complete this topic MENINGOCOCCAL VACCINES (B) Aged Out N o longer eligible based on patient's age to complete this topic Medical Devices Not on file Procedures Procedure Name Priority Date/Time Associated Diagnosis Comments VITAMIN B12 Routine 12/10/2024 10:42 AM EDT Undifferentiated connective tissue disease Long-term use of hydroxychloroquine Age-related osteoporosis without current pathological fracture DOUBLE STRANDED DNA ANTIBODIES Routine 12/10/2024 10:42 AM EDT Undifferentiated connective tissue disease Long-term use of hydroxychloroquine Age-related osteoporosis without current pathological fracture CPK (CREATINE KINASE) Routine 12/10/2024 10:42 AM EDT Undifferentiated connective tissue disease Long-term use of hydroxychloroquine Age-related osteoporosis without current pathological fracture COMPLEMENT C4 Routine 12/10/2024 10:42 AM EDT Undifferentiated connective tissue disease Long-term use of hydroxychloroquine Age-related osteoporosis without current pathological fracture COMPLEMENT C3 Routine 12/10/2024 10:42 AM EDT Undifferentiated connective tissue disease Long-term use of hydroxychloroquine Age-related osteoporosis without current pathological fracture SEDIMENTATION RATE (ESR) Routine 12/10/2024 10:42 AM EDT Undifferentiated connective tissue disease Long-term use of hydroxychloroquine Age-related osteoporosis without current pathological fracture CBC AND DIFFERENTIAL Routine 12/10/2024 10:42 AM EDT Undifferentiated connective tissue disease Long-term use of hydroxychloroquine Age-related osteoporosis without current pathological fracture C-REACTIVE PROTEIN Routine 12/10/2024 10 :42 AM EDT Undifferentiated connective tissue disease Long-term use of hydroxychloroquine Age-related osteoporosis without current pathological fracture COMPREHENSIVE METABOLIC PANEL Routine 12/10/2024 10:42 AM EDT Undifferentiated connective tissue disease Long-term use of hydroxychloroquine Age-related osteoporosis without current pathological fracture 25-OH VITAMIN D Routine 12/10/2024 10:42 AM EDT Age-related osteoporosis without current pathological fracture BD DXA AXIAL (SPINE) WITH HIP Routine 12/05/2024 9:14 AM EDT Osteopenia of both hips TSH WITH REFLEX Routine 06/20/2024 10:58 AM EST Cold sensitivity from Last 3 Months or Most Recently Relevant to Health Maintenance Results * (ABNORMAL) Comprehensive metabolic panel (12/10/2024 10:42 AM EDT) SODIUM 136 133 - 146 mmol/L [facility] POTASSIUM 4.3 3.3 - 5.1 mmol/L [facility] CHLORIDE 102 96 - 108 mmol/L [facility] CO2 26 21 - 35 mmol/L [facility] BUN 15 6 - 19 mg/dL [facility] CREATININE 1.00 0.5 - 1.5 mg/dL [facility] GLUCOSE 99 70 - 99 mg/dL [facility] ALBUMIN 4.0 3.9 - 4.8 g/dL [facility] TOTAL PROTEIN 7.0 6.5 - 8.0 g/dL [facility] CALCIUM 9.1 8.4 - 10.3 mg/dL [facility] ALKALINE PHOSPHATASE 73 39 - 117 U/L [facility] TOTAL BILIRUBIN 0.6 0.0 - 1.2 mg/dL [facility] AST 46(H) 0 - 37 U/L [facility] ALT 17 0 - 40 U/L [facility] GLOBULIN 3.0 1 - 4.8 g/dL [facility] EGFR 59(L) >59 mL/min/1.7 3m2 [facility] Comment:Estimated glomerular filtration rate calculated using the CKD-EPI refit equation. ANION GAP 12 10 - 20 mmol/L [facility] Blood 12/10/2024 10:4 2 AM EDT 12/10/2024 10:46 AM EDT us Óscar Valerio MD LAB BLOOD ORDERABLES Fin al Result Performing Organization Address City/State/[facility] Co de Phone Number [facility] [address] [place] [address] * Double stranded DNA antibodies (12/10/2024 10:42 AM EDT) ANTI DSDNA ANTIBODY Negative at 1:10 [facility] Comment: Performing Pathologist, Carlos Thomas M.D., Ph.D. [phone] Normal: Negative at 1:10 To interpret a negative test for anti-[place] or double stranded DNA antibodies in a patient suspected of having systemic lupus erythematosus, the following limitation should be noted. Anti-double stranded DNA antibodies are usually detected in SLE patients with active disease, especially in those with active renal disease. Anti-DNA antibodies are usually not detected in SLE patients with spontaneous or drug-induced remissions. Blood 12/10/2024 10:4 2 AM EDT 12/10/2024 10:46 AM EDT us Óscar Valerio MD LAB BLOOD ORDERABLES Fin al Result [address] [address] * (ABNORMAL) 25-OH vitamin D (12/10/2024 10:42 AM EDT) 25 OH VIT D (TOTAL) 65(H) 30 - 60 ng/mL [facility] Blood 12/10/2024 10:4 2 AM EDT 12/10/2024 10:46 AM EDT us Óscar Valerio MD LAB BLOOD ORDERABLES Fin al Result Performing Organization Address [facility] Co de Phone Number [address] [address] * Sedimentation rate (ESR) (12/10/2024 10:42 AM EDT) Pathologist [facility] ESR 9 0 - 30 mm/h [facility] Blood 12/10/2024 10:4 2 AM EDT 12/10/2024 10:46 AM EDT us Óscar Valerio MD LAB BLOOD ORDERABLES Fin al Result Performing Organization Address City/[facility] Co de Phone Number [address] [address] * (ABNORMAL) CBC and differential (12/10/2024 10:42 AM EDT) WBC 4.86 4.00 - 11.00 K/uL [facility] RBC 4.71 4.00 - 5.20 M/uL [facility] HGB 11.7(L) 12.0 - 16.0 g/dL [facility] HCT 38.8 36.0 - 46.0 % [facility] PLT 226 150 - 450 K/uL [facility] MCV 82.4 80.0 - 100.0 fL [facility] MCH 24.8(L) 27.0 - 31.0 pg [facility] MCHC 30.2(L) 32.0 - 36.0 g/dL [facility] RDW 16.7(H) 11.5 - 14.5 % [facility] MPV 10.0 8.4 - 12.0 fL [facility] NRBC 0.00 0.00 /100 WBCs [facility] ABSOLUTE NRBC 0.00 0.00 K/uL [facility] DIFF METHOD Auto [facility] NEUTS 69.5 48.0 - 76.0 % [facility] LYMPHS 19.8 18.0 - 41.0 % [facility] MONOS 9.9 4.0 - 11.0 % [facility] EOS 0.0 0.0 - 5.0 % [facility] BASOS 0.6 0.0 - 1.5 % [facility] Granulocytes, immature (%) 0.2 0.0 - 0.9 % [facility] ABSOLUTE NEUTS 3.38 1.92 - 7.60 K/uL [facility] ABSOLUTE LYMPHS 0.96 0.72 - 4.10 K/uL [facility] ABSOLUTE MONOS 0.48 0.16 - 1.10 K/uL [facility] ABSOLUTE EOS 0.00 0.00 - 0.50 K/uL [facility] ABSOLUTE BASOS 0.03 0.00 - 0.15 K/uL [facility] Granulocytes, immature 0.01 0.00 - 0.09 K/uL [facility] Blood 12/10/2024 10:4 2 AM EDT 12/10/2024 10:46 AM EDT us Óscar Valerio MD LAB BLOOD ORDERABLES Fin al Result [facility] [address] [place] [address] * (ABNORMAL) Complement C3 (12/10/2024 10:42 AM EDT) C3 77(L) 81 - 157 mg/dl [facility] Blood 12/10/2024 10:4 2 AM EDT 12/10/2024 10:46 AM EDT us Óscar Valerio MD LAB BLOOD ORDERABLES Fin al Result Performing Organization Address City/[facility]/ZIP Co de Phone Number [address] [address] * Complement C4 (12/10/2024 10:42 AM EDT) C4 32 12 - 39 mg/dL [facility] Blood 12/10/2024 10:4 2 AM EDT 12/10/2024 10:46 AM EDT us Óscar Valerio MD LAB BLOOD ORDERABLES Fin al Result Performing Organization Address City/[facility] Co de Phone Number [address] [address] * C-Reactive Protein (12/10/2024 10:42 AM EDT) C REACTIVE PROTEIN <3.0 0.0 - 4.0 mg/L [facility] Blood 12/10/2024 10:4 2 AM EDT 12/10/2024 10:46 AM EDT us Óscar Valerio MD LAB BLOOD ORDERABLES Fin al Result Performing Organization Address City/[facility]/ZIP Co de Phone Number [address] [address] * (ABNORMAL) Vitamin B12 (12/10/2024 10:42 AM EDT) VITAMIN B12 1,880(H) 232 - 1,245 pg/mL [facility] Blood 12/10/2024 10:4 2 AM EDT 12/10/2024 10:46 AM EDT us Óscar Valerio MD LAB BLOOD ORDERABLES Fin al Result [address] [address] * (ABNORMAL) CPK (creatine kinase) (12/10/2024 10:42 AM EDT) CREATINE KINASE 242(H) 21 - 215 U/L [facility] Blood 12/10/2024 10:4 2 AM EDT 12/10/2024 10:46 AM EDT us Óscar Valerio MD LAB BLOOD ORDERABLES Fin al Result Performing Organization Address City/[facility]/ZIP Co de Phone Number [address] [address] * BD DXA AXIAL (SPINE) WITH HIP (12/05/2024 9:14 AM EDT) Anatomical Region Laterality Modality Bone Density Bone Density 12/05/2024 9:13 AM EDT Impressions 12/08/2024 11:36 AM EDT Interpretation: Osteoporosis. Narrative 12/08/2024 11:36 AM EDT Referred By: ÓSCAR VALERIO I Indications: Osteopenia Scanner: [facility] with serial# of [id number] located at [facility] Bone Density Scan (DXA) 12/05/24 Details of prior DXA scans are available by clicking View Full Report BMD T- Z- Skeletal Site gm/cm2 score score BMD Change Since Prior Scan ------ ----- ----- PA Spine (L2 L3 L4) 0.770 -2.80 -0.40 -0.081 (-9.5%)* since 08/19/2021 Total Hip (Left) 0.713 -1.90 -0.20 -0.047 (-6.2%)* since 08/19/2021 Femoral Neck (Left) 0.645 -1.80 0.00 -0.015 (stable) since 08/19/2021 ------ ----- ----- * Denotes significant change when >= 0.022 g/cm2 for the spine, 0.027 g/cm2 for the total hip, 0.029 g/cm2 for the femoral neck. Interpretation: Osteoporosis. Technical Quality: Imaging of all sites was of adequate quality.NOTE: We newly excluded one or more vertebrae. To allow comparisons with prior tests, we recalculated the total BMD of all prior spine tests after excluding the same vertebra(e). FRAX: A FRAX(r) score is not provided because the patient has osteoporosis, which is generally an indication for treatment. Reviewed By: Oscar Krishnan MD on 12/08/2024 11:36:18 Additional Information: -World Health Organization criteria classify adults based on lowest T-score at PA spine, hip or forearm: Normal (T-score >= -1.0), Osteopenia (T-score between -1 and -2.5), or Osteoporosis (T-score <= -2.5). At [facility], T-scores are compared to peak bone density of a young white gender matched reference population. - For premenopausal women and men under the age of 50, Z-scores (comparison to age, gender, and ethnicity matched reference population) are used: Above expected range for age (Z-score >= 2.0), Within expected range of age (Z-score 1.9 to -1.9), or Below expected range for age (Z-score <= -2.0). - The Bone Health and Osteoporosis Foundation recommends that treatment be considered in men aged more than 50 years and in postmenopausal women with ANY of the following: Prior hip or vertebral fractures; T-score of <= -2.5 at the PA spine or hip; or 10 year fracture probability by FRAX of >= 3% for the hip or >= 20% for major osteoporotic fracture. - The FRAX algorithm (https://www.jose.ac.uk/FRAX/tool.aspx) is designed to predict 10-year fracture risk in treatment-naive adults between the ages of 40 and 90. It is not intended to be used in those receiving pharmacologic osteoporosis treatment. - The TBS is derived from the texture of the DXA spine image and has been shown to be related to bone microarchitecture and fracture risk. This data provides information independent of BMD value. It adds to fracture risk assessment with a FRAX adjusted for TBS score. If your patient had a TBS and qualified for a FRAX score, the reported FRAX score has been adjusted for TBS. TBS Score Interpretation 1.350 and greater Normal bone microarchitecture 1.200 to 1.350 Partially degraded bone microarchitecture 1.200 and less Degraded bone microarchitecture - Including race/ethnicity in the generation of T- or Z-scores or in the FRAX calculation is complicated, and currently undergoing active review to ensure that we can give patients the best information on their risk of fracture. - Some prior studies may not be compatible with our comparison software. - Click on View Full Report to see subsequent pages with images and prior bone density results. Procedure Note Oscar Krishnan MD - 12/08/2024 Referred By: ÓSCAR VALERIO I Indications: Osteopenia Scanner: [facility] with serial# of [id number] located at [facility] Bone Density Scan (DXA) 12/05/24 Details of prior DXA scans are available by clicking View Full Report BMD T- Z- Skeletal Site gm/cm2 score score BMD Change Since Prior Scan ------ ----- PA Spine (L2 L3 L4) 0.770 -2.80 -0.40 -0.081 (-9.5%)* since08/19/2021 Total Hip (Left) 0.713 -1.90 -0.20 -0.047 (-6.2%)* 08/19/2021 Femoral Neck (Left) 0.645 -1.80 0.00 -0.015 (stable) 08/19/2021 ------ ----- * Denotes significant change when >= 0.022 g/cm2 for the spine, 0.027g/cm2 for the total hip, 0.029 g/cm2 for the femoral neck. Interpretation: Osteoporosis. Technical Quality: Imaging of all sites was of adequate quality.NOTE: We newly excluded one or more vertebrae. To allow comparisons with priortests, we recalculated the total BMD of all prior spine tests after excluding the same vertebra(e). FRAX: A FRAX(r) score is not provided because the patient hasosteoporosis, which is generally an indication for treatment. Reviewed By: Oscar Krishnan MD on 12/08/2024 11:36:18 Additional Information: -World Health Organization criteria classify adults based on lowestT-score at PA spine, hip or forearm: Normal (T-score >= -1.0), Osteopenia (T-score between -1 and -2.5), or Osteoporosis (T-score <= -2.5). At [facility], T-scores are compared to peak bone density of a young white gender matched reference population. - For premenopausal women and men under the age of 50, Z-scores(comparison to age, gender, and ethnicity matched reference population) are used:Above expected range for age (Z-score >= 2.0), Within expected range of age (Z-score 1.9 to -1.9), or Below expected range for age (Z-score <= -2.0). - The Bone Health and Osteoporosis Foundation recommends that treatment be considered in men aged more than 50 years and in postmenopausal women with ANY of the following: Prior hip or vertebral fractures; T-score of <= -2.5 at the PA spine or hip; or 10 year fracture probability by FRAX of >= 3%for the hip or >= 20% for major osteoporotic fracture. - The FRAX algorithm (https://www.jose.ac.uk/FRAX/tool.aspx) is designed to predict 10-year fracture risk in treatment-naive adultsbetween the ages of 40 and 90. It is not intended to be used in those receiving pharmacologic osteoporosis treatment. - The TBS is derived from the texture of the DXA spine image and has been shown to be related to bone microarchitecture and fracture risk. This data provides information independent of BMD value. It adds to fracture risk assessment with a FRAX adjusted for TBS score. If your patient had a TBSand qualified for a FRAX score, the reported FRAX score has been adjusted for TBS. TBS Score Interpretation 1.350 and greater Normal bone microarchitecture 1.200 to 1.350 Partially degraded bone microarchitecture 1.200 and less Degraded bone microarchitecture - Including race/ethnicity in the generation of T- or Z-scores or in the FRAX calculation is complicated, and currently undergoing active review to ensure that we can give patients the best information on their risk of fracture. - Some prior studies may not be compatible with our comparison software. - Click on View Full Report to see subsequent pages with images andprior bone density results. IMPRESSION: Interpretation: Osteoporosis. Óscar LYLES BD BONE DENSITY DEXA Final Result * TSH with reflex (06/20/2024 10:58 AM EST) TSH 1.01 0.27 - 4.20 uIU/mL [facility] Blood 06/20/2024 10:5 8 AM EST 06/20/2024 11:13 AM EST us Óscar Valerio MD LAB BLOOD ORDERABLES Fin al Result [facility] [address] [address], [place] [id number] from Last 3 Months or Most Recently Relevant to Health Maintenance [place] [address] [place] [address] MEDICARE REPLACEMENT MEDICARE PART A & [place] [address] [place] [address] MEDICARE REPLACEMENT MEDICARE PART A & [place] [address] [place] [address] MEDICARE REPLACEMENT [facility] MEDICARE REPLACEMENT MEDICARE PART A & B MEDICARE PART A & B MEDICARE REPLACEMENT MEDICARE PART A & B MEDICARE REPLACEMENT MEDICARE PART A & B Care Teams Underwriting Director Relationship Specialty Start Date End Date Eileen Mcmahan MD [address] [place] [address] PCP - General Internal Medicine 01/28/21 Additional Source Comments The information contained in this document represents components of the legal health record. It is not the complete legal health record.[facility]
--- OUTSIDE RECORDS SUMMARY | 2025-01-20 10:17 | XMS_ITS | Clinical Summary ---
Author Organization [facility] Address [address] [place] [address] Care Team Providers Care Furnace Repair Mechanic Name Role Phone Salvador Devries MD Primary Care Provider Unavailab le Medications Vitamin D3 10 mcg (400 unit) tablet Take 1 tablet (400 Units total) by mouth 1 (one) time each day. 90 each 3 5 Active sildenafil (REVATIO) 20 mg tablet Take 1 tablet (20 mg total) by mouth 3 (three) times a day. 90 tablet 6 5 Active sildenafil (REVATIO) 20 mg tablet 5 01/02/20 25 Discontinu ed(Reorder ) Surgical History Surgery Date Site/Laterality Comments CHOLECYSTECTOMY PROCEDURE: HISTORICAL CHOLECYSTECTOMY Medical History Medical History Date Comments Obstructive sleep apnea 08/10/2016 DX:Obstr uctive sleep apnea Osteoporosis 06/03/2014 DX:Osteoporosis Pulmonary emphysema (CMS/HCC V24, CMS/HCC V28) 09/20/2016 DX:Pulmonary emphysema (HCC) Pulmonary hypertension (CMS/ HCC V24, CMS/HCC V28) 09/21/2014 DX:Pulmonary hypertension (H CC) Respiratory failure, chronic (CMS/HCC V24, CMS/HCC V28) 08/10/2016 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 supplemental O2 Chronic [...] Upcoming Encounters Date Type Department Care Team ([facility] st Contact Info) Description 03/04/2025 9:30 AM EDT [facility] [address] [place] [address] Usama Gracia MD [address] [place] [phone] Health Maintenance Due Date Last Done Comments Breast Cancer Screening 1950 Pneumococcal Vaccine: 50+ Ye ars (1 of 2 - PCV) 10/03/1970 Zoster Vaccines (1 of 2) 10/03/2001 RSV Immunization Adult Patie nts (1 - Risk 60-74 years 1-dose series) 2011 DTaP,Tdap,and Td Vaccines (2 - Td or Tdap) 05/08/2023 05/08/2013 COVID-19 Vaccine ( - 2023-2 5 season) 2024 Depression Screening 05/28/2024 Colorectal Cancer Screening: Colonoscopy 11/14/2024 Falls Risk Assessment 11/14/2024 Hepatitis C [...] patient's age to complete this topic Insurance [facility] MEDICAID - [place] Care Teams Furnace Repair Mechanic Relationship Specialty Start Date End Date Salvador Devries MD PCP - General Internal Medicine 05/17/18
== END 2025-01-20 10:24 | disposition home or self-care (01) ==
LOC: HO.HSM 09:39
PROVIDERS: PCP Internal Medicine; Visit Provider Psychiatry & Neurology Neurology
DX: G30.9 Alzheimer's disease, unspecified (principal); F02.80 Dementia in other diseases classified elsewhere, unspecified severity, without behavioral disturbance, psychotic disturbance, mood disturbance, and anxiety; I63.9 Cerebral infarction, unspecified; F33.0 Major depressive disorder, recurrent, mild; G44.209 Tension-type headache, unspecified, not intractable
CPT/HCPCS: 99214

== ENCOUNTER → 2025-01-20 09:39 | Outpatient (BNVA) | payer OTHER, SELFPAY | PROVIDERS: PCP Internal Medicine; Visit Provider Psychiatry & Neurology Neurology | DX: G44.209 Tension-type headache, unspecified, not intractable (principal); G30.9 Alzheimer's disease, unspecified; F02.80 Dementia in other diseases classified elsewhere, unspecified severity, without behavioral disturbance, psychotic disturbance, mood disturbance, and anxiety; F33.0 Major depressive disorder, recurrent, mild; Z86.73 Personal history of transient ischemic attack (TIA), and cerebral infarction without residual deficits | CPT/HCPCS: 99212 ==

== ENCOUNTER 2025-05-11 10:02 | Outpatient (AMB) | payer OTHER, SELFPAY ==
--- NOTE | 2025-05-11 10:14 | MHC.PC.OV ---
Vital Signs 05/11/25 10:19 Height 5 ft 2 in Weight 150 lb 6 oz BMI 27.5 BP 140/66 H Blood Pressure Location Lt brachial Position Sitting Pulse 74 Pulse Source Pulse Oximeter Temp 97.3 F Temp Source Temporal Artery Scan Pulse Oximetry (%) 93 Oxygen Delivery Method Room Air Intake Visit Reasons: annual exam - see comments Intake Note: Patient is here today for a physical. Search Analyst Required: Yes Search Analyst Language: Copper Flotation Operator Name: Charo (granddaughter) Information Interpreted: non-clinical & clinical (Pt decline waterworks pump station operator service prefer granddaughter to translate) Strap Making Machine Operator: Present Accompanied by: Grand Child Allergies potassium chloride (Potassium Chloride) Allergy (Severe, Verified 05/11/25 10:38) SWELLING aspirin Allergy (Intermediate, Verified 05/11/25 10:38) bleeding morphine (MORPHINE) Allergy (Intermediate, Verified 05/11/25 10:38) HALLUCINATIONS levofloxacin (From Levaquin) Adverse Reaction (Mild, Verified 05/11/25 10:38) SEVERE DIARRHEA ranitidine (From Zantac) Adverse Reaction (Mild, Verified 05/11/25 10:38) CONFUSION Medication List - Last Reconciled 05/11/25 by Eileen Phillips MD albuterol sulfate 2.5 mg (3 mL) inhalation TID PRN atorvastatin 10 mg PO DAILY calcium carbonate-vitamin D3 600 mg-10 mcg (400 unit) 1 tab PO DAILY cholecalciferol (vitamin D3) (Vitamin D3) 10 mcg PO DAILY citalopram 40 mg PO DAILY 30 days clopidogrel 75 mg PO DAILY donepezil 10 mg PO BEDTIME 90 days fluticasone propion-salmeterol 500-50 mcg/dose (Wixela Inhub) 1 ea PO BID folic acid 1 mg PO DAILY food supplemt, lactose-reduced (Boost) 1 ea PO BID 24 days hydroxychloroquine 400 mg (2 x 200 mg) PO DAILY levothyroxine 100 mcg PO DAILY 90 days meclizine 12.5 mg PO TID PRN memantine 10 mg PO BID 90 days pantoprazole 40 mg PO DAILY pyridoxine (vitamin B6) 100 mg PO DAILY quetiapine 12.5 - 25 mg (0.5 - 1 x 25 mg) PO DAILY PRN sildenafil (pulm.hypertension) 20 mg PO TID sucralfate (Carafate) 1 g PO BID tiotropium bromide 1.25 mcg/actuation (Spiriva Respimat) 2 puffs inhalation DAILY Tobacco use date assessed: 05/11/25 Fall risk assessment: No Falls in past year Last assessed Fall Risk: 05/11/25 Dental Screening Dental Screen Date: 10/27/24 HPI HPI Comments History of Present Illness Details The patient is a 74 year old female presenting for her annual physical exam. 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 She has a history of osteoporosis with fragile bones, for which she received an annual infusion in November of this year at [facility]. She has also been diagnosed with Alzheimer's dementia and pulmonary hypertension. Her current medications include atorvastatin, vitamin D, citalopram for depression with anxiety which is managed by her neurologist, clopidogrel, donepezil for memory, folic acid, hydroxychloroquine 400 mg, levothyroxine 100 mg, memantine, meclizine, pantoprazole, vitamin B6 for kidney stone prevention, Seroquel, and sucralfate. She is not using an inhaler for COPD or Wixela. Her known allergies include potassium chloride, aspirin, morphine, Levaquin, and Zantac. Past surgical history is significant for a hysterectomy, hernia repair, and a section. She has had a colonoscopy in the past, but the date of the procedure is unknown. Both parents are with no reported medical conditions. [facility] Medical History (Updated 05/11/25 @ 12:36 by Eileen Phillips MD) COPD (chronic obstructive pulmonary disease) Rheumatoid arthritis Lupus (systemic lupus erythematosus) Alzheimer's disease Depression Tension headache MCI (mild cognitive impairment) with memory loss Headache Dizziness Stroke Mild recurrent major depression Memory loss Moderate asthma GERD (gastroesophageal reflux disease) Hypothyroidism Dyslipidemia Physical exam Pulmonary hypertension Undifferentiated connective tissue disease Surgical History History of hysterectomy History of hernia surgery History of Family History Father No problems noted. Mother No problems noted. Social History Housing: Apartment Alcohol intake: never Patient Tobacco Use Status: Never used Tobacco e-Cigarette/Vaping Use: Never Used Second Hand Smoke Exposure: No service: No Current occupational status: disabled Cognitive needs: No Hearing needs: No Vision needs: Yes Questionnaire Thrive Questionnaire Date Thrive assessed: 10/27/24 I am a: Parent/Caregiver What is your living situation today?: I have a steady place to live Within the past 12 months, did the food you bought not last and you didn't have the money to get more?: Never true Within the past 12 months, did you worry whether your food would run out before you got money to buy more?: Never true Do you have trouble paying for medicines?: No Do you have trouble getting transportation to medical appointments?: No Do you have trouble paying your heating and electricity bill?: No Do you have trouble taking care of your child, family member or friend?: No Do you have trouble with day-to-day activities such as bathing, preparing meals, shopping, managing finances, etc.?: Yes Are you currently unemployed and looking for a job?: No Are you interested in more education?: No Please select the resources that you would like help with: None Currently or been in a relationship where the following occur: No concerns reported THRIVE Score: 0 VIRGILIO-7 AMB Questionnaire VIRGILIO-7 Date VIRGILIO - 7 assessed: 10/27/24 Source: Developed by Drs. Sp Vieyra, Sussy Fernandez, Erik Leung and colleagues, with an educational kanu from [employer]. Review of Systems Const All systems reviewed & are unremarkable except as noted in HPI and below Card Denies chest pain at rest, Denies chest pain with activity, Denies edema, Denies irregular heart rhythm, Denies claudication, Denies dyspnea, Denies dyspnea on exertion, Denies orthopnea, Denies paroxysmal nocturnal dyspnea and Denies slow heart rate Resp Denies cough, Denies dyspnea and Denies dyspnea on exertion GI Denies abdominal pain, Denies change in bowel habits, Denies excessive flatus, Denies nausea and Denies vomiting Denies urinary incontinence, Denies urinary hesitancy and Denies urinary urgency Musc Denies abnormal gait, Denies atrophy, Denies deformity and Denies limited range of motion Skin/Breast Denies bleeding lesions, Denies changing lesions and Denies rash Neuro Denies abnormal gait and Denies lack of coordination Physical exam (Primary Care) Vital Signs: Last Vital Signs Temp 97.3 F 05/11/25 10:19 Pulse 74 05/11/25 10:19 BP 140/66 H 05/11/25 10:19 Pulse Ox 93 05/11/25 10:19 Oxygen Delivery Method Room Air 05/11/25 10:19 BMI result Body Mass Index 27.5 Tobacco/Smoking Status: Tobacco use Status Tobacco use date assessed 05/11/25 05/11/25 10:26 Patient Tobacco Use Status Never used Tobacco 05/11/25 10:14 e-Cigarette/Vaping Use Never Used 05/11/25 10:14 Thrive Assessment: Date of Thrive Assessment Date Thrive assessed 10/27/24 05/11/25 10:14 Currently or been in a relationship where the following occur: No concerns reported [facility] Head: Yes normal to inspection, Yes normocephalic and Yes atraumatic Ears: external ears normal Eyes General: appearance normal, both eyes and all related structures Eyelids: Yes eyelids normal Conjunctivae: conjunctivae normal Neck Neck: Yes normal visual inspection and Yes supple Resp Effort & Inspection: normal respiratory effort Auscultation: clear to auscultation bilaterally Cardio Jugular venous distension: no JVD Rate: regular rate Rhythm: regular rhythm Heart sounds: Murmur heart sound present GI Inspection: Yes normal to inspection Palpation (GI): Soft to palpation and nontender Auscultation: normal bowel sounds Skin General skin exam: no rashes or lesions noted Neuro General: no focal motor deficits Extrem General: Yes full ROM Psych Appearance: grossly normal Coding Level of Care Code Est Pt Level 3 (35711) Est Pt Prev Care >65y(78970) Diagnoses Physical exam Z00.00 Alzheimer's disease G30.9; F02.80 Cerebrovascular accident (CVA), unspecified mechanism I63.9 CVA mechanism: unspecified Undifferentiated connective tissue disease M35.9 Pulmonary hypertension I27.20 Murmur R01.1 Assessment & Plan Assessment & Plan (1) Physical exam: Code(s): Z00.00 - Encounter for general adult medical examination without abnormal findings Category: Medical (2) Alzheimer's disease: Code(s): G30.9 - Alzheimer's disease, unspecified; F02.80 - Dementia in other diseases classified elsewhere, unspecified severity, without behavioral disturbance, psychotic disturbance, mood disturbance, and anxiety Category: Medical (3) Stroke: Code(s): I63.9 - Cerebral infarction, unspecified Category: Medical Qualifiers: CVA mechanism: unspecified Qualified Code(s): I63.9 - Cerebral infarction, unspecified (4) Undifferentiated connective tissue disease: Code(s): M35.9 - Systemic involvement of connective tissue, unspecified Category: Medical (5) Pulmonary hypertension: Code(s): I27.20 - Pulmonary hypertension, unspecified Category: Medical (6) Murmur: Code(s): R01.1 - Cardiac murmur, unspecified Category: Medical Plan Plan 1. Physical exam It was confirmed that the patient already received her pneumonia vaccine at the pharmacy, so it was not administered during the visit. Colonoscopy and Tdap vaccine up-to-date. Had flu vaccine this year at the pharmacy. 2. Murmur Echocardiogram ordered. Orders: Orders Lipid Panel Today E78.5 - Hyperlipidemia, unspecified Vitamin D 25-OH Total Today E55.9 - Vitamin D deficiency, unspecified IRON PROFILE Today D64.9 - Anemia, unspecified Comprehensive [place]. Panel Fast Today I27.20 - Pulmonary hypertension, unspecified Thyroid Stimulating Hormone Today E03.9 - Hypothyroidism, unspecified Complete Blood Count Auto Diff Today D64.9 - Anemia, unspecified Vitamin B12 and Folate Today E53.8 - Deficiency of other specified B group vitamins CA echo transthoracic complete Today R01.1 - Cardiac murmur, unspecified Medications: Refilled atorvastatin 10 mg PO DAILY 90 caps 3RF pantoprazole 40 mg PO DAILY 90 caps 3RF pyridoxine (vitamin B6) 100 mg PO DAILY 90 tabs 3RF fluticasone propion-salmeterol 500-50 mcg/dose (Wixela Inhub) 1 ea PO BID 180 caps 3RF levothyroxine 100 mcg PO DAILY 90 tabs 1RF 90 days meclizine 12.5 mg PO TID PRN 20 tabs 0RF dizziness R42 - Dizziness and giddiness
[2025-05-11 10:19] VITALS: BP 140/66; PULSE 74; TEMP 36.3; O2SAT 93; BMI 27.5
== END 2025-05-11 10:54 | disposition home or self-care (01) ==
LOC: HO.HMCH 10:03
PROVIDERS: PCP Internal Medicine; Visit Provider Internal Medicine
DX: Z00.00 Encounter for general adult medical examination without abnormal findings (principal); R01.1 Cardiac murmur, unspecified; G30.9 Alzheimer's disease, unspecified; F02.80 Dementia in other diseases classified elsewhere, unspecified severity, without behavioral disturbance, psychotic disturbance, mood disturbance, and anxiety; I63.9 Cerebral infarction, unspecified; I27.20 Pulmonary hypertension, unspecified; M35.9 Systemic involvement of connective tissue, unspecified

== ENCOUNTER → 2025-05-11 10:02 | Outpatient (BNVA) | payer OTHER, SELFPAY | PROVIDERS: PCP Internal Medicine; Visit Provider Internal Medicine | DX: Z00.00 Encounter for general adult medical examination without abnormal findings (principal); G30.9 Alzheimer's disease, unspecified; F02.80 Dementia in other diseases classified elsewhere, unspecified severity, without behavioral disturbance, psychotic disturbance, mood disturbance, and anxiety; I63.9 Cerebral infarction, unspecified; M35.9 Systemic involvement of connective tissue, unspecified; I27.20 Pulmonary hypertension, unspecified; R01.1 Cardiac murmur, unspecified; E55.9 Vitamin D deficiency, unspecified | CPT/HCPCS: 99212; 99397 ==